=== PATIENT | female | born 1945 | race African-American/Black ===

== ENCOUNTER 2017-08-28 14:13 | Outpatient (CLI) | payer MEDICARE | END 2017-08-28 14:14 | disposition home or self-care (01) | LOC: BICMAMMO 14:13 | PROVIDERS: ATTEND Radiology Diagnostic Radiology | DX: Z12.31 Encounter for screening mammogram for malignant neoplasm of breast (principal) | CPT/HCPCS: 77063; 77067 ==

== ENCOUNTER 2019-03-17 23:31 | Inpatient (IN) | payer MEDICARE ==
[2019-03-18] MEDS ORDERED: cefTRIAXone\\ROCEPHIN 1 GM VIAL ONE (00:01)
[2019-03-18] MEDS ORDERED: Enoxaparin Sodium 80 MG/0.8 ML SYRINGE ONE (00:30)
[2019-03-18] MEDS ORDERED: Acetaminophen 650 MG Suppository PR PRN (01:00)
[2019-03-18] MEDS ORDERED: Ondansetron PF 4 MG/2 ML Vial IVP PRN (01:00)
[2019-03-18] MEDS ORDERED: Ondansetron ODT 4 MG TAB PO PRN (01:00)
[2019-03-18 01:36] LABS: CKMB 43.6 ng/mL (0-6.6)
[2019-03-18 03:29] VITALS: BMI 27.6
[2019-03-18] MEDS ORDERED: Dextrose 50% Abboject 50 ML SYRINGE SLOW IVP PRN (03:31)
[2019-03-18] MEDS ORDERED: Dextrose 5% in Water 1,000 ML IV PRN (03:31)
[2019-03-18 03:42] LABS: #Basophils 0.1 thou/uL (0.0-0.2); #Eosinphils 0.1 thou/uL (0.0-0.7); #Lymphocytes 3.5 thou/uL (1.20-3.40); #Monocytes 1.3 thou/uL (0.11-0.59); #Neutrophils 10.6 thou/uL (1.40-6.50); %Basophils 0.5 % (0.0-1.0); %Eosinophils 0.3 % (0.0-10.0); %Lymphocytes 22.7 % (21.0-51.0); %Monocytes 8.4 % (0.0-10.0); Mean Corpuscular Hemoglobin 28.8 pg (27.0-31.0); Mean Corpuscular Volume 84.9 fL (78.0-98.0); Mean Platelet Volume 8.5 fL (7.4-10.4); Platelet Count 272 thou/uL (130-400); RBC Distribution Width 14.7 % (11.5-14.5); Red Blood Cell (RBC) Count 4.51 mill/uL (4.20-5.40); White Blood Cell (WBC) Count 15.5 thou/uL (4.8-10.8)
[2019-03-18 03:59] LABS: Anion Gap 14 mmol/L (10-20); BUN (Urea Nitrogen) 21 mg/dL (9.8-20.1); Calc. Creatinine Clearance 49 mL/min (70-130); Calcium 9.7 mg/dL (7.8-10.44); Carbon Dioxide 26 mmol/L (23-31); Chloride 103 mmol/L (98-107); Estimated GFR-MDRD 51; Glucose 151 mg/dL (83-110); Potassium 3.3 mmol/L (3.5-5.1); Sodium 140 mmol/L (136-145)
[2019-03-18 04:10] LABS: Troponin I 0.624 ng/mL (< 0.028)
--- NOTE | 2019-03-18 04:48 | HP ---
CODE STATUS: Full code. TIME OF EVALUATION: 12:50 a.m. CHIEF COMPLAINT: The patient was found on the floor. HISTORY OF PRESENT ILLNESS: This is a 74-year-old female with history of dementia, presented to the ER after being found by the daughter being on the floor with no clear triggers, no alleviating factors. The patient cannot give accurate history. The patient has been confused, the patient had no cardiac history. The patient was found to have troponin in the range of 0.4 to 0.5, has been admitted to the hospital for possible non-STEMI. Symptoms are severe. No clear triggers, no alleviating factors. REVIEW OF SYSTEMS: Unable to obtain. The patient has dementia. Information gathered from daughter. PAST MEDICAL HISTORY: History of TIA; diabetes, type 2, non-insulin; and hypertension. PAST SURGICAL HISTORY: Appendectomy, hysterectomy, orthopedic surgery in left shoulder, left arm, right shoulder x2, and carpal tunnel of the left hand. PSYCHIATRIC HISTORY: No previous psych history. SOCIAL HISTORY: No alcohol. No drugs. Former tobacco user. The patient quit smoking more than 10 years ago. KNOWN ALLERGIES: To penicillin. REPORTED MEDICATIONS: 1. Amlodipine. 2. Atorvastatin. 3. Losartan. 4. Aspirin. 5. Hydrochlorothiazide. 6. Levothyroxine. 7. Oxybutynin. 8. Pantoprazole. 9. Humalog. 10. Carvedilol. PHYSICAL EXAMINATION: VITAL SIGNS: On presentation; blood pressure 186/79 with heart rate 78, respiratory rate was 20, temperature 98.5, pain was 0/10, and oxygen saturation was 94% on room air. GENERAL APPEARANCE: The patient is alert, disoriented, has dementia, not in acute distress. HEENT: Eyes, normal conjunctivae. Moist oral mucosa. Anicteric. No JVD. RESPIRATORY: Bilateral air entry. No rales. No wheezes. Symmetric expansion. CARDIOVASCULAR: Normal rate. Regular rhythm. No murmurs. No gallop. No edema. ABDOMEN: Soft. Normal bowel sounds. MUSCULOSKELETAL: Baseline range of motion and strength. SKIN: Warm, intact. No pallor. No rash. No redness. Capillary refill seems to be intact. NEURO: No evidence of any new focal weakness. Cranial nerves seem to be intact. PSYCH: The patient is in good mood. No anxiety. Optimal judgment. DIAGNOSTIC STUDIES: CARDIOVASCULAR STUDIES: EKG was reviewed. The patient has normal sinus rhythm with a rate of 85 with no ectopics, septal infarct, ST and T-wave abnormalities. QT corrected 435. IMAGING STUDIES: CT maxillofacial without contrast was negative. No acute findings. Brain CT shows ventriculomegaly and chronic ischemic white matter changes, appeared stable from the recent study. Acute interval change noted. Chest x-ray, no acute abnormality. Right humeral x-ray; degenerative changes of the shoulder with spurring from the humeral head and the AC joint in the humeral head indicate rotator cuff repair. No fracture or acute abnormality identified. LABORATORY RESULTS: Reviewed. The patient has a white count 17.9, hemoglobin 13.7, MCV 86, and platelet count 307. Coagulation was not done. Chemistry; sodium 141, potassium 4.3, chloride 103, carbon dioxide 22, anion gap 20, BUN 19, creatinine 1.20, previous creatinine was 1.44, GFR 53, and glucose 156. LFTs were negative. Troponin 0.5, the previous one was 0.4. Urine was done and the patient has positive urine with white counts in urine of 7 to 10 and leukocyte esterase. ASSESSMENT AND PLAN: The patient will be placed in the hospital with following medical problems; 1. Non-ST segment elevation myocardial infarction. Unclear if it is non-ST segment elevation myocardial infarction type 1 versus type 2. Cardiology is being consulted. given. Reconcile home medications. We will follow Cardiology recommendations. 2. Urinary tract infection. The patient has received antibiotics and we will continue for now. We will follow up cultures and adjust treatment as needed. 3. Possible sepsis. The patient had white count of 17, respirations of 20, possible source is urinary tract infection. The patient is on antibiotics. Follow up cultures. 4. Diabetes, type 2. Blood sugar 156. Place the patient on sliding scale. Job ID: [id number]
--- NOTE | 2019-03-18 07:42 | CT ---
PRELIMINARY REPORT/[facility]/EMERGENCY AFTER HOURS PROCEDURE: EXAM: CT Maxillofacial Without Contrast EXAM DATE/TIME: 03/18/2019 12:25 AM CLINICAL HISTORY: 74 years old, female; Patient HX: RT sided jaw pain S/P fall TECHNIQUE: Imaging protocol: Computed tomography images of the face without contrast. Coronal and sagittal reformatted images were created and reviewed. COMPARISON: No relevant prior studies available. FINDINGS: Orbits: Orbits are normal. Globes are unremarkable. Sinuses: Normal. No air-fluid levels. Bones/joints: Subtle fracture deformity in the right nasal bone is likely chronic. Remaining facial bones intact. Soft tissues: Unremarkable. IMPRESSION: No acute findings. Thank you for allowing us to participate in the care of your patient. Dictated and Authenticated by: Gary Flores MD 03/18/2019 1:14 AM Central Time ([place] & [place]) FINAL REPORT: CT FACIAL BONES WITHOUT CONTRAST: I agree with the report given by Dr. Gary Flores. Transcribed Date/Time: 03/18/2019 7:47 AM
[2019-03-18] MEDS: Enoxaparin Sodium 40 MG/0.4 ML SYRINGE SC SCH (09:37)
[2019-03-18 10:08] LABS: Troponin I 0.692 ng/mL (< 0.028)
[2019-03-18] MEDS ORDERED: Carvedilol 6.25 MG TAB PO SCH (11:45)
[2019-03-18] MEDS ORDERED: Losartan 25 MG TAB PO SCH (11:45)
[2019-03-18] MEDS ORDERED: Amlodipine 5 MG TAB PO SCH (13:45)
--- NOTE | 2019-03-18 14:16 | PDOC.EVN ---
Event Note - Event Note Event Note: Patient was seen and examined. Will restart home medications. Get CT head to rule out acute CVA. Get left knee XR to rule out fracture given severe pain and decreased ROM.
[2019-03-18] MEDS: Sodium Chloride 0.9% 1,000 ML IV SCH (15:16)
--- NOTE | 2019-03-18 16:40 | RAD ---
LEFT KNEE FOUR VIEWS: 03/18/19 INDICATION: Severe left knee pain with reduced range of motion. COMPARISON: Prior exam dated 11/04/18. There is enthesopathic change off the anterior patella and tibial tuberosity. There are mild marginal osteophyte affecting all major compartments of the left knee. There are vascular calcification withi n the posterior soft tissues. No acute fracture or subluxation is evident. No joint capsular distenti on is noted. IMPRESSION: Mild degenerative arthrosis left knee. No acute osseous abnormality. POS: BH
[2019-03-18] MEDS: HumaLOG 300 UNITS/3 ML VIAL SC PRN (18:43)
--- NOTE | 2019-03-18 20:28 | CON ---
DATE OF CONSULTATION: 03/18/2019 INDICATION FOR CONSULTATION: A 74-year-old female with multiple falls, had slight elevation of cardiac enzymes with troponins elevated, MB was 43.6, however, do not have a CK. It is uncertain as to how long the lady has been on the floor. However, according to the sister, she has 2 to 3 falls per day and she lives by herself. She was admitted after having another fall and was found on the floor by the family and they brought her to the hospital. At this time, she denies any chest pain. Her EKG is unremarkable for any acute changes. There is no indication that she has any significant ST-segment elevation that would indicate a myocardial ischemia. She also denies any chest pain. She says she has not had a cardiac problem in the past. She did undergo an echocardiogram previously transesophageal echocardiogram as well as a transthoracic echocardiogram in 2013, which showed a normal ejection fraction. She does have history of diastolic dysfunction and aortic valve sclerosis with mild mitral and tricuspid valve regurgitation. At this time, it does not appear that she is having any acute episodes, and if the CK is significantly elevated, then I suspect this is just a manifestation of her rhabdomyolysis after lying on the floor and after multiple falls according to the family. At this time, she denies any previous cardiac history, and I do not see anything in the records that would indicate any cardiac history except for the echocardiogram with some diastolic dysfunction. We will repeat the echocardiogram for further evaluation. PAST MEDICAL HISTORY: Significant for TIAs, dementia, [id number] diabetes, hypertension. She has had an appendectomy, hysterectomy, left shoulder surgery, right shoulder surgery, left arm fracture. She has had carpal tunnel release in the left hand. SOCIAL HISTORY: She still apparently lives alone. She smoked in the past, stopped about 10 years ago. She has children who are alive and well. FAMILY HISTORY: Noncontributory. MEDICATIONS: Prior to admission include aspirin, Lipitor, Norvasc, vitamin D3, insulin, hydrochlorothiazide, Levoxyl, Protonix, Coreg 6.25 mg b.i.d., Cozaar, and Ditropan. ALLERGIES: SHE IS ALLERGIC TO PENICILLIN. REVIEW OF SYSTEMS: She denies any significant complaints in the review of systems except for the falls and she says she has a cataract in the left eye. Otherwise, she has no significant complaints, but she did complain at this time that she has left ankle pain and on examination done for her to palpate pulses, she did complain of significant pain when I try to evaluate the pulses in the feet, but only on the left side. PHYSICAL EXAMINATION: GENERAL: An elderly lady who is somewhat demented. VITAL SIGNS: Blood pressure is 184/78 and earlier was 167/92, heart rate is 76 and shows a sinus rhythm, temperature is 99, respiratory rate is 18. HEENT: Head to be normocephalic and atraumatic. Carotid pulses are present. I did not hear any bruits. There is no JVD noted. The thyroid did not appear to be enlarged. CHEST: Clear to auscultation without rales, rhonchi, or wheezing. CARDIOVASCULAR: Regular rate and rhythm. Normal S1 and S2. There was no S3 or S4. There were no significant murmurs, heaves, thrills, bruits, or rubs. ABDOMEN: Obesity with positive bowel sounds. No organomegaly or masses noted. No tenderness was noted. EXTREMITIES: No clubbing, cyanosis, or edema. Pedal pulses are decreased but are present. She does have tenderness of the left ankle area. NEUROLOGIC: She is somewhat slow to respond. She is somewhat confused. She did not know which year it was. She did know what month it was, and she was uncertain of the date also, but otherwise knew that it was Thursday. Otherwise, there were no significant complaints on the review of systems. SKIN: Warm and dry. DIAGNOSTIC DATA: EKG shows a normal sinus rhythm with no acute changes to indicate ischemia or previous myocardial. LABORATORY DATA: Troponin I of 0.059, increased up to 0.624 and is now up to 0.692. MB was 43.6. I do not have a CK and will request the CK. If the CK is significantly elevated, then I would suspect also the MBs. The troponin I would also be elevated. She denies any chest pain at this time and appears to be very stable. Her thyroid functions shows a TSH of 6.7. IMPRESSION: 1. An elderly female with probable rhabdomyolysis, who was found on the floor with elevated cardiac enzymes, which may not be out of proportion to the CK. Once we determined how healthy the CK is, this may give us further inside. If the CK is normal and MB elevated to 43.6, this will indicate a [id number] elevation myocardial infarction. Since she has no EKG changes and is stable at this time, we will continue medical treatment due to her other medical problems. 2. History of multiple falls and dementia. The patient lives alone. She should either be consider going to a residential or have family members reside with her. 3. According to the records, urinary tract infection is being dealt with by the Primary Care Service. 4. Diabetes. Blood sugar is anywhere between 136 to 151. At this time, we will plan for a repeat echocardiogram for evaluation of left ventricular systolic function. We can continue to monitor the cardiac enzymes. We will obtain the CK to determine whether or not most this may be due to significant elevation of musculoskeletal CK elevation. She has had a normal ejection fraction in the past and has some history of diastolic dysfunction. We will be happy to continue the patient to follow the patient with you. We will treat her medically at this time. She is already on aspirin as well as ARB, statins, and beta phillip. Heart rate shows a regular rhythm at 76 beats per minute. We will continue these medications. We will continue to follow the patient. Job ID: [id number]
[2019-03-18] MEDS ORDERED: Atorvastatin Calcium 40 MG TAB PO SCH (21:00)
[2019-03-18] MEDS: Oxybutynin 5 MG TAB PO SCH (21:14)
[2019-03-18] MEDS: Carvedilol 6.25 MG TAB PO SCH (21:14)
[2019-03-18] MEDS: Acetaminophen 325 MG TAB PO PRN (21:16)
[2019-03-19] MEDS: Sodium Chloride 0.9% 1,000 ML IV SCH ×3 (01:34→20:40)
[2019-03-19] MEDS: cefTRIAXone\\ROCEPHIN 1 GM in Sodium Chloride 0.9% 100 ML IVPB SCH (03:43)
[2019-03-19 04:56] LABS: Anion Gap 11 mmol/L (10-20); BUN (Urea Nitrogen) 23 mg/dL (9.8-20.1); CK (CPK) 1516 U/L (29-168); Calc. Creatinine Clearance 52 mL/min (70-130); Calcium 8.4 mg/dL (7.8-10.44); Carbon Dioxide 24 mmol/L (23-31); Chloride 108 mmol/L (98-107); Estimated GFR-MDRD 53; Glucose 208 mg/dL (83-110); Potassium 3.6 mmol/L (3.5-5.1); Sodium 139 mmol/L (136-145)
[2019-03-19] MEDS ORDERED: Amlodipine 5 MG TAB PO SCH ×2 (09:00→14:00)
[2019-03-19] MEDS: Enoxaparin Sodium 40 MG/0.4 ML SYRINGE SC SCH (09:23)
[2019-03-19] MEDS: Losartan 25 MG TAB PO SCH (09:24)
[2019-03-19] MEDS: Oxybutynin 5 MG TAB PO SCH ×2 (09:24→20:46)
[2019-03-19] MEDS: Aspirin 325 mg Enteric Coated Tablet PO SCH (09:25)
[2019-03-19] MEDS: Levothyroxine Sodium 50 MCG TAB PO SCH (09:25)
[2019-03-19] MEDS: Carvedilol 6.25 MG TAB PO SCH ×2 (09:26→20:45)
[2019-03-19] MEDS ORDERED: Zolpidem Tartrate 5 MG TAB PO PRN (09:28)
[2019-03-19] MEDS ORDERED: Artificial Tears 18 DROP/0.9 ML EA EYE PRN (09:28)
[2019-03-19] MEDS ORDERED: Loratadine 10 MG TAB PO PRN (09:28)
[2019-03-19] MEDS ORDERED: Diabetic Tussin 200 MG/10 ML UDCUP PO PRN (09:28)
[2019-03-19] MEDS ORDERED: Bisacodyl 10 MG SUPP PR PRN (09:28)
[2019-03-19] MEDS ORDERED: Nitroglycerin 0.4 MG TAB (25 Tab Bottle) SL PRN (09:28)
[2019-03-19] MEDS ORDERED: Loperamide HCl 2 MG CAP PO PRN (09:28)
[2019-03-19] MEDS ORDERED: hydrALAZINE 20 MG/ML VIAL SLOW IVP PRN (09:28)
[2019-03-19] MEDS ORDERED: Senokot S 8.6-50 MG TAB PO PRN (09:28)
[2019-03-19] MEDS ORDERED: Sodium Chloride 0.65% Nasal 44 ML BOT EA NARE PRN (09:28)
[2019-03-19] MEDS ORDERED: Cepastat Lozenges 1 LOZ PO PRN (09:28)
--- NOTE | 2019-03-19 12:17 | PDOC.HOSPP ---
- Subjective Subjective: Patient seen and examined. No new complaints. No overnight events - Objective Vital Signs & Weight: Vital Signs (12 hours) Temp Pulse Resp BP BP Pulse Ox 03/19/19 11:42 98.3 F 78 16 175/77 H 97 03/19/19 09:24 63 186/81 H 03/19/19 07:42 98.2 F 69 16 175/76 H 96 03/19/19 04:00 98.2 F 65 20 148/67 H 97 Weight Weight 172 lb 12.8 oz I&O: 03/18/19 03/19/19 03/20/19 06:59 06:59 06:59 Intake Total 500 Output Total 700 Balance -200 Result Diagrams: 03/18/19 03:20 03/19/19 04:18 Additional Labs: Accuchecks 03/19/19 03/19/19 03/18/19 11:18 05:47 21:31 POC Glucose 289 H 164 H 239 H 03/18/19 03/18/19 18:39 17:00 POC Glucose 248 H 220 H EKG Reviewed by me: Yes ROS - Review of Systems All systems: All other ROS were reviewed and found negative. Constitutional: reports: weakness. denies: fever, chills, sweats, malaise, other ENT: denies: ear pain, ear discharge, nose pain, nose discharge, nose congestion , mouth pain, mouth swelling, throat pain, throat swelling, other Respiratory: denies: cough, dry, shortness of breath, hemoptysis, SOB with excertion, pleuritic pain, sputum, wheezing, other Cardiovascular: denies: chest pain, palpitations, orthopnea, paroxysmal noc. dyspnea, edema, light headedness, other Gastrointestinal: denies: nausea, vomitting, abdominal pain, diarrhea, constipation, melena, hematochezia, other Genitourinary: denies: dysuria, frequency, incontinence, hematuria, retention, other Musculoskeletal: reports: leg pain. denies: neck pain, shoulder pain, arm pain , back pain, hand pain, foot pain, other Skin: denies: rash, lesions, cindy, bruising, other Neurological: denies: weakness, numbness, incoordination, change in speech, confusion, seizures, other - Medication Medications: Active Medications Generic Name Dose Route Start Last Admin Trade Name Freq PRN Reason Stop Dose Admin Acetaminophen 650 mg 03/18/19 01:00 03/18/19 21:16 Tylenol PO 650 mg Q4H PRN Administration Headache/Fever/Mild Pain (1-3) Aspirin 325 mg 03/19/19 09:00 03/19/19 09:25 Ecotrin PO 325 mg DAILY GENESIS Administration Carvedilol 6.25 mg 03/18/19 21:00 03/19/19 09:26 Coreg PO 6.25 mg BID GENESIS Administration Enoxaparin Sodium 40 mg 03/18/19 09:00 03/19/19 09:23 Lovenox SC 40 mg 0900 GENESIS Administration Sodium Chloride 1,000 mls @ 100 mls/hr 03/18/19 14:30 03/19/19 01:34 Normal Saline 0.9% IV 1,000 mls .Q10H GENESIS Administration Ceftriaxone Sodium 1 gm/ 100 mls @ 200 mls/hr 03/20/19 01:00 03/19/19 03:43 Sodium Chloride IVPB 100 mls Q24HR GENESIS Administration Insulin Human Lispro 0 units 03/18/19 03:31 03/18/19 18:43 Humalog SC 3 unit .MILD SLIDING SCALE PRN Administration Mild Correctional Scale Levothyroxine Sodium 50 mcg 03/19/19 09:00 03/19/19 09:25 Synthroid PO 50 mcg DAILY GENESIS Administration Losartan Potassium 100 mg 03/19/19 09:00 03/19/19 09:24 Cozaar PO 100 mg DAILY GENESIS Administration Oxybutynin Chloride 5 mg 03/18/19 21:00 03/19/19 09:24 Ditropan PO 5 mg BID GEENSIS Administration Pantoprazole Sodium 40 mg 03/19/19 09:00 03/19/19 09:24 Protonix PO 40 mg DAILY GENESIS Administration - Exam NAD, awake alert Eye: PERRL, anicteric sclera ENT: normocephalic atraumatic, no oropharyngeal lesions Neck: supple, symmetric, no JVD Heart: RRR, no murmur, no gallops, no rubs Respiratory: CTAB, no wheezes, no rales, no ronchi Gastrointestinal: soft, non-tender, non-distended, normal bowel sounds Extremities: no cyanosis, no clubbing, no edema Skin: normal turgor, no lesions Neurological: CN's grossly intact, normal sensation to touch, no focal deficits Musculoskeletal: normal tone, normal strength Psychiatric: normal affect, normal behavior Hosp A/P (1) Acute metabolic encephalopathy Code(s): G93.41 - METABOLIC ENCEPHALOPATHY Status: Resolved (2) Hypokalemia Code(s): E87.6 - HYPOKALEMIA Status: Resolved (3) Rhabdomyolysis Code(s): M62.82 - RHABDOMYOLYSIS Status: Acute Plan: improving (4) Type [address] elevation Code(s): I21.A1 - MYOCARDIAL INFARCTION TYPE 2 Status: Acute Plan: due to demand ischemia (5) UTI (urinary tract infection) Status: Acute Plan: on rocephin (6) Atherosclerosis of aorta Code(s): I70.0 - ATHEROSCLEROSIS OF AORTA Status: Chronic (7) CKD (chronic kidney disease) stage 3, GFR 30-59 ml/min Code(s): N18.3 - CHRONIC KIDNEY DISEASE, STAGE 3 (MODERATE) Status: Chronic (8) Diabetes type 2, controlled Code(s): E11.9 - TYPE 2 DIABETES MELLITUS WITHOUT COMPLICATIONS Status: Chronic (9) GERD (gastroesophageal reflux disease) Code(s): K21.9 - GASTRO-ESOPHAGEAL REFLUX DISEASE WITHOUT ESOPHAGITIS Status: Chronic (10) HLD (hyperlipidemia) Code(s): E78.5 - HYPERLIPIDEMIA, UNSPECIFIED Status: Chronic (11) HTN (hypertension) Code(s): I10 - ESSENTIAL (PRIMARY) HYPERTENSION Status: Chronic (12) Hypothyroidism Code(s): E03.9 - HYPOTHYROIDISM, UNSPECIFIED Status: Chronic - Plan old records reviewed/req, continue antibiotics, PT/OT, school social worker continue IVF repeat labs tomorrow Dc lipitor due to high CK continue PT/OT cardiology following continue rocephin home medication reconciled medication reviewed as below symptomatic treatment will need placement increase amlodipine
[2019-03-19] MEDS: HumaLOG 300 UNITS/3 ML VIAL SC PRN ×3 (12:55→22:12)
--- NOTE | 2019-03-19 14:21 | PDOC.CTH ---
Cardiology Progress Note - Subjective The pt seen and examined. No overnight events. No cardiac complaints. - Objective Vital Signs Temp Pulse Pulse Pulse Resp BP BP 03/19/19 13:40 75 184/75 H 03/19/19 11:42 98.3 F 78 16 03/19/19 11:35 77 69 175/77 H 03/19/19 09:24 63 186/81 H 03/19/19 07:42 98.2 F 69 16 03/19/19 04:00 98.2 F 65 20 BP BP Pulse Ox 03/19/19 13:40 03/19/19 11:42 175/77 H 97 03/19/19 11:35 190/77 H 03/19/19 09:24 03/19/19 07:42 175/76 H 96 03/19/19 04:00 148/67 H 97 Weight 172 lb 12.8 oz 03/18/19 03/19/19 03/20/19 06:59 06:59 06:59 Intake Total 500 Output Total 700 Balance -200 - Physical Examination General/Neuro: other: (A&O to self) Lungs: other: (diminished at bases) Heart: RRR Abdomen: soft Extremities: other: (No edema) - Telemetry Telemetry Rhythm: SR - Labs Result Diagrams: 03/18/19 03:20 03/19/19 04:18 Troponin/CKMB CK-MB (CK-2) 43.6 ng/mL (0-6.6) H* 03/18/19 00:36 Troponin I 0.692 ng/mL (< 0.028) H* 03/18/19 09:24 - Assessment/Plan 1. Elevated Trop, CK, and CKMB - possible due to rebdomyolysis? ECG has not showed any ST or T wave change; cont to monitor 2. HTN - Will start Hydralazine 25mg BID from tonight; 3. DM type 2 - managed by PCP 4. H of multiple falls, last episode was on 03/18/2019 5. Hx of TIAs 6. Hypothyroidism 7. UTI MAR reviewed * Echo on 03/18/2019 with EF 50-55%, diastolic dysfunction, mild MR, AR, and TR Pt. seen and eval. by me. I agree with the A/P by the ENVIRONMENTAL HEALTH MANAGER.The pt. is without complaints. The BP is difficult to control. Continue to adjust meds. Chest clear. RRR. [email or web address] Review of Systems - Review of Systems Constitutional: reports: no symptoms reported EENTM: reports: no symptoms reported Respiratory: reports: no symptoms reported Cardiac (ROS): reports: no symptoms reported ABD/GI: reports: no symptoms reported : reports: no symptoms reported Musculoskeletal: reports: no symptoms reported
[2019-03-19] MEDS: Acetaminophen 325 MG TAB PO PRN (14:36)
[2019-03-19] MEDS: cloNIDine 0.1 MG TAB PO PRN (16:56)
[2019-03-19] MEDS: hydrALAZINE 25 MG TAB PO SCH (20:45)
[2019-03-19] MEDS: Atorvastatin Calcium 40 MG TAB PO SCH (20:46)
[2019-03-19] MEDS ORDERED: Clopidogrel Bisulfate 75 MG TAB ONE (23:27)
[2019-03-20] MEDS: cefTRIAXone\\ROCEPHIN 1 GM in Sodium Chloride 0.9% 100 ML IVPB SCH (00:53)
[2019-03-20] MEDS: Sodium Chloride 0.9% 1,000 ML IV SCH ×2 (00:54→17:03)
[2019-03-20] MEDS ORDERED: cefTRIAXone\\ROCEPHIN 1 GM in Sodium Chloride 0.9% 100 ML IVPB SCH (01:00)
[2019-03-20 06:49] LABS: #Basophils 0.1 thou/uL (0.0-0.2); #Eosinphils 0.1 thou/uL (0.0-0.7); #Lymphocytes 2.4 thou/uL (1.20-3.40); #Monocytes 0.9 thou/uL (0.11-0.59); #Neutrophils 5.9 thou/uL (1.40-6.50); %Basophils 0.6 % (0.0-1.0); %Eosinophils 1.3 % (0.0-10.0); %Lymphocytes 25.4 % (21.0-51.0); %Monocytes 9.7 % (0.0-10.0); Mean Corpuscular HGB CONC 32.7 g/dL (32.0-36.0); Mean Corpuscular Hemoglobin 28.3 pg (27.0-31.0); Mean Corpuscular Volume 86.6 fL (78.0-98.0); Mean Platelet Volume 8.5 fL (7.4-10.4); Platelet Count 204 thou/uL (130-400); RBC Distribution Width 14.6 % (11.5-14.5); Red Blood Cell (RBC) Count 3.88 mill/uL (4.20-5.40); White Blood Cell (WBC) Count 9.3 thou/uL (4.8-10.8)
[2019-03-20 07:12] LABS: ALT (SGPT) 29 U/L (8-55); AST (SGOT) 46 U/L (5-34); Alkaline Phosphatase 88 U/L (40-150); Anion Gap 10 mmol/L (10-20); BUN (Urea Nitrogen) 14 mg/dL (9.8-20.1); Bilirubin, Total 0.4 mg/dL (0.2-1.2); CK (CPK) 899 U/L (29-168); Calc. Creatinine Clearance 54 mL/min (70-130); Calcium 8.3 mg/dL (7.8-10.44); Carbon Dioxide 24 mmol/L (23-31); Chloride 109 mmol/L (98-107); Estimated GFR-MDRD 54; Globulin 2.9 g/dL (2.4-3.5); Glucose 259 mg/dL (83-110); Potassium 3.9 mmol/L (3.5-5.1); Protein, Total 5.9 g/dL (6.0-8.3); Sodium 139 mmol/L (136-145)
[2019-03-20 07:26] LABS: Troponin I 0.782 ng/mL (< 0.028)
[2019-03-20] MEDS: Enoxaparin Sodium 40 MG/0.4 ML SYRINGE SC SCH (07:53)
[2019-03-20] MEDS: Losartan 25 MG TAB PO SCH (07:54)
[2019-03-20] MEDS: Oxybutynin 5 MG TAB PO SCH ×2 (07:55→20:16)
[2019-03-20] MEDS: Amlodipine 5 MG TAB PO SCH (07:55)
[2019-03-20] MEDS: Aspirin 325 mg Enteric Coated Tablet PO SCH (07:56)
[2019-03-20] MEDS: Carvedilol 6.25 MG TAB PO SCH ×2 (07:56→20:19)
[2019-03-20] MEDS: hydrALAZINE 25 MG TAB PO SCH ×2 (07:56→20:36)
[2019-03-20] MEDS: Levothyroxine Sodium 50 MCG TAB PO SCH (09:15)
--- NOTE | 2019-03-20 10:25 | PDOC.HOSPP ---
- Subjective Subjective: Patient seen and examined. No new complaints. No overnight events - Objective Vital Signs & Weight: Vital Signs (12 hours) Temp Pulse Resp BP Pulse Ox 03/20/19 07:28 98.7 F 64 20 191/76 H 95 03/20/19 04:00 97.9 F 66 18 170/70 H 96 03/19/19 23:35 98.3 F 20 158/70 H 98 Weight Weight 178 lb I&O: 03/19/19 03/20/19 03/21/19 06:59 06:59 06:59 Intake Total 500 2620 Output Total 700 2850 Balance -200 -230 Result Diagrams: 03/20/19 06:33 03/20/19 06:33 Additional Labs: Accuchecks 03/20/19 03/19/19 03/19/19 05:48 20:42 16:27 POC Glucose 229 H 276 H 231 H 03/19/19 11:18 POC Glucose 289 H EKG Reviewed by me: Yes ROS - Review of Systems All systems: All other ROS were reviewed and found negative. Constitutional: reports: weakness. denies: fever, chills, sweats, malaise, other Eyes: denies: pain, vision change, conjunctivae inflammation, eyelid inflammation, redness, other ENT: denies: ear pain, ear discharge, nose pain, nose discharge, nose congestion , mouth pain, mouth swelling, throat pain, throat swelling, other Respiratory: denies: cough, dry, shortness of breath, hemoptysis, SOB with excertion, pleuritic pain, sputum, wheezing, other Cardiovascular: denies: chest pain, palpitations, orthopnea, paroxysmal noc. dyspnea, edema, light headedness, other Gastrointestinal: denies: nausea, vomitting, abdominal pain, diarrhea, constipation, melena, hematochezia, other Genitourinary: denies: dysuria, frequency, incontinence, hematuria, retention, other Musculoskeletal: denies: neck pain, shoulder pain, arm pain, back pain, hand pain, leg pain, foot pain, other Skin: denies: rash, lesions, cindy, bruising, other - Medication Medications: Active Medications Generic Name Dose Route Start Last Admin Trade Name Freq PRN Reason Stop Dose Admin Acetaminophen 650 mg 03/18/19 01:00 03/19/19 14:36 Tylenol PO 650 mg Q4H PRN Administration Headache/Fever/Mild Pain (1-3) Amlodipine Besylate 10 mg 03/19/19 09:30 03/20/19 07:55 Norvasc PO 10 mg DAILY GENESIS Administration Aspirin 325 mg 03/19/19 09:00 03/20/19 07:56 Ecotrin PO 325 mg DAILY GENESIS Administration Atorvastatin Calcium 40 mg 03/19/19 21:00 03/19/19 20:46 Lipitor PO 40 mg HS GENESIS Administration Carvedilol 6.25 mg 03/18/19 21:00 03/20/19 07:56 Coreg PO 6.25 mg BID GENESIS Administration Cholecalciferol 1,000 units 03/20/19 09:00 03/20/19 07:56 Vitamin D3 PO 1,000 units DAILY GENESIS Administration Clonidine 0.1 mg 03/19/19 16:35 03/19/19 16:56 Catapres PO 0.1 mg Q6HR PRN Administration Hypertension Enoxaparin Sodium 40 mg 03/18/19 09:00 03/20/19 07:53 Lovenox SC 40 mg 0900 GENESIS Administration Hydralazine HCl 10 mg 03/19/19 09:28 03/19/19 13:40 Apresoline SLOW IVP 10 mg Q4H PRN Administration SBP > 180 and HR < 70 Hydralazine HCl 25 mg 03/19/19 21:00 03/20/19 07:56 Apresoline PO 25 mg BID GENESIS Administration Sodium Chloride 1,000 mls @ 100 mls/hr 03/18/19 14:30 03/20/19 00:54 Normal Saline 0.9% IV 1,000 mls .Q10H GENESIS Administration Ceftriaxone Sodium 1 gm/ 100 mls @ 200 mls/hr 03/20/19 01:00 03/20/19 00:53 Sodium Chloride IVPB 100 mls Q24HR GENESIS Administration Insulin Human Lispro 0 units 03/18/19 03:31 03/19/19 18:06 Humalog SC 3 unit .MILD SLIDING SCALE PRN Administration Mild Correctional Scale Insulin Human Lispro 0 units 03/19/19 21:15 03/19/19 22:12 Humalog SC 3 unit .BEDTIME SLIDING SC PRN Administration Bedtime Correctional Scale Levothyroxine Sodium 50 mcg 03/19/19 09:00 03/20/19 09:15 Synthroid PO 50 mcg DAILY GENESIS Administration Losartan Potassium 100 mg 03/19/19 09:00 03/20/19 07:54 Cozaar PO 100 mg DAILY GENESIS Administration Oxybutynin Chloride 5 mg 03/18/19 21:00 03/20/19 07:55 Ditropan PO 5 mg BID GENESIS Administration Pantoprazole Sodium 40 mg 03/19/19 09:00 03/20/19 07:56 Protonix PO 40 mg DAILY GENESIS Administration - Exam NAD, awake alert Eye: PERRL, anicteric sclera ENT: normocephalic atraumatic, no oropharyngeal lesions Neck: supple, symmetric, no JVD Heart: RRR, no murmur, no gallops, no rubs Respiratory: CTAB, no wheezes, no rales, no ronchi Gastrointestinal: soft, non-tender, non-distended, normal bowel sounds Extremities: no cyanosis, no clubbing, no edema Skin: normal turgor, no lesions, no rashes Neurological: CN's grossly intact, normal sensation to touch, no focal deficits Musculoskeletal: normal tone, normal strength Psychiatric: normal affect, normal behavior Hosp A/P (1) Acute metabolic encephalopathy Code(s): G93.41 - METABOLIC ENCEPHALOPATHY Status: Resolved (2) Hypokalemia Code(s): E87.6 - HYPOKALEMIA Status: Resolved (3) Rhabdomyolysis Code(s): M62.82 - RHABDOMYOLYSIS Status: Acute (4) Type [address] elevation Code(s): I21.A1 - MYOCARDIAL INFARCTION TYPE 2 Status: Acute (5) UTI (urinary tract infection) Status: Acute (6) Atherosclerosis of aorta Code(s): I70.0 - ATHEROSCLEROSIS OF AORTA Status: Chronic (7) CKD (chronic kidney disease) stage 3, GFR 30-59 ml/min Code(s): N18.3 - CHRONIC KIDNEY DISEASE, STAGE 3 (MODERATE) Status: Chronic (8) Diabetes type 2, controlled Code(s): E11.9 - TYPE 2 DIABETES MELLITUS WITHOUT COMPLICATIONS Status: Chronic (9) GERD (gastroesophageal reflux disease) Code(s): K21.9 - GASTRO-ESOPHAGEAL REFLUX DISEASE WITHOUT ESOPHAGITIS Status: Chronic (10) HLD (hyperlipidemia) Code(s): E78.5 - HYPERLIPIDEMIA, UNSPECIFIED Status: Chronic (11) HTN (hypertension) Code(s): I10 - ESSENTIAL (PRIMARY) HYPERTENSION Status: Chronic (12) Hypothyroidism Code(s): E03.9 - HYPOTHYROIDISM, UNSPECIFIED Status: Chronic - Plan old records reviewed/req, plan discussed w/ family, continue antibiotics, PT/OT , medical social consultant cardiology following continue IVF add diflucan for yeast in urine culture medication reviewed as below symptomatic treatment will dc rocephin tomorrow repeat labs tomorrow CK improving
[2019-03-20] MEDS ORDERED: Fluconazole 100 MG TAB PO SCH (10:30)
[2019-03-20] MEDS: HumaLOG 300 UNITS/3 ML VIAL SC PRN ×3 (13:09→20:36)
--- NOTE | 2019-03-20 13:19 | PDOC.CTH ---
Cardiology Progress Note - Subjective The pt seen and examined. No overnight events. No cardiac complaints. - Objective Vital Signs Temp Pulse Resp BP Pulse Ox 03/20/19 11:21 97.7 F 73 18 170/73 H 96 03/20/19 07:28 98.7 F 64 20 191/76 H 95 03/20/19 04:00 97.9 F 66 18 170/70 H 96 Weight 178 lb 03/19/19 03/20/19 03/21/19 06:59 06:59 06:59 Intake Total 500 2620 Output Total 700 2850 Balance -200 -230 - Physical Examination General/Neuro: alert & oriented x3 Neck: no JVD present Lungs: other: (diminished at bases) Heart: RRR Abdomen: soft Extremities: other: (No edema) - Telemetry Telemetry Rhythm: SR - Labs Result Diagrams: 03/20/19 06:33 03/20/19 06:33 Troponin/CKMB CK-MB (CK-2) 43.6 ng/mL (0-6.6) H* 03/18/19 00:36 Troponin I 0.782 ng/mL (< 0.028) H* 03/20/19 06:33 - Assessment/Plan 1. Elevated Trop, CK, and CKMB - possible due to rebdomyolysis? ECG has not showed any ST or T wave change; cont to monitor 2. HTN - Will increase Hydralazine from 25mg BID to 50mg TID from today; 3. DM type 2 - managed by PCP 4. H of multiple falls, last episode was on 03/18/2019 5. Hx of TIAs 6. Hypothyroidism with elevated TSH on 03/18/2019 7. UTI - managed by PCP MAR reviewed * Echo on 03/18/2019 with EF 50-55%, diastolic dysfunction, mild MR, AR, and TR <addendum> For HTN, Clonidine 0.1mg BID and increased Hydralazine from 50mg to 75mg TID. Cont. to monitor Pt. seen and eval. by me. I agree with the A/P by the INSPECT[employer] AD[employer]. Difficult to control BP. Chest clear. RRR.She may need a renal consult to assist with BP management.gjm Review of Systems - Review of Systems Constitutional: reports: no symptoms reported EENTM: reports: no symptoms reported Respiratory: reports: no symptoms reported Cardiac (ROS): reports: no symptoms reported ABD/GI: reports: no symptoms reported : reports: no symptoms reported Musculoskeletal: reports: no symptoms reported
[2019-03-20] MEDS ORDERED: hydrALAZINE 25 MG TAB PO SCH (15:00)
[2019-03-20] MEDS: cloNIDine 0.1 MG TAB PO PRN (17:02)
[2019-03-20] MEDS: Acetaminophen 325 MG TAB PO PRN (17:03)
[2019-03-20] MEDS: Atorvastatin Calcium 40 MG TAB PO SCH (20:16)
[2019-03-20] MEDS: cloNIDine 0.1 MG TAB PO SCH (20:16)
[2019-03-21] MEDS: cefTRIAXone\\ROCEPHIN 1 GM in Sodium Chloride 0.9% 100 ML IVPB SCH (00:40)
[2019-03-21] MEDS: Sodium Chloride 0.9% 1,000 ML IV SCH (02:15)
[2019-03-21] MEDS: Fluconazole 100 MG TAB PO SCH (09:40)
[2019-03-21] MEDS: Losartan 25 MG TAB PO SCH (09:40)
[2019-03-21] MEDS: cloNIDine 0.1 MG TAB PO SCH ×2 (09:40→21:57)
[2019-03-21] MEDS: Amlodipine 5 MG TAB PO SCH (09:41)
[2019-03-21] MEDS: Carvedilol 6.25 MG TAB PO SCH ×2 (09:41→21:58)
[2019-03-21] MEDS: hydrALAZINE 25 MG TAB PO SCH ×3 (09:42→21:58)
[2019-03-21] MEDS: Enoxaparin Sodium 40 MG/0.4 ML SYRINGE SC SCH (09:42)
[2019-03-21] MEDS: Oxybutynin 5 MG TAB PO SCH ×2 (09:42→21:59)
[2019-03-21] MEDS: Aspirin 325 mg Enteric Coated Tablet PO SCH (09:42)
[2019-03-21] MEDS: Levothyroxine Sodium 50 MCG TAB PO SCH (09:47)
[2019-03-21] MEDS: HumaLOG 300 UNITS/3 ML VIAL SC PRN ×2 (09:48→19:00)
--- NOTE | 2019-03-21 10:58 | PDOC.CTH ---
Cardiology Progress Note - Subjective The pt seen and examined. No overnight events. No cardiac complaints. - Objective Vital Signs Temp Pulse Resp BP BP Pulse Ox 03/21/19 09:42 67 03/21/19 09:41 66 154/66 H 03/21/19 09:40 154/66 H 03/21/19 04:00 99.2 F 67 20 151/68 H 96 03/21/19 00:00 98.5 F 69 20 145/67 H 95 Weight 180 lb 03/20/19 03/21/19 03/22/19 06:59 06:59 06:59 Intake Total 2620 3140 Output Total 2850 2250 Balance -230 890 - Physical Examination General/Neuro: alert & oriented x3 Neck: no JVD present Lungs: other: (diminished at bases) Heart: RRR Abdomen: soft Extremities: other: (No edema) - Telemetry Telemetry Rhythm: SR - Labs Result Diagrams: 03/20/19 06:33 03/20/19 06:33 Troponin/CKMB CK-MB (CK-2) 43.6 ng/mL (0-6.6) H* 03/18/19 00:36 Troponin I 0.782 ng/mL (< 0.028) H* 03/20/19 06:33 - Assessment/Plan 1. Elevated Trop, CK, and CKMB - possible due to rebdomyolysis. ECG has not showed any ST or T wave change; cont to monitor 2. HTN - Will increase Hydralazine from 75mg to 100mg TID from today; 3. DM type 2 - managed by PCP 4. H of multiple falls, last episode was on 03/18/2019 5. Hx of TIAs 6. Hypothyroidism with elevated TSH on 03/18/2019 7. UTI - managed by PCP MAR reviewed * Echo on 03/18/2019 with EF 50-55%, diastolic dysfunction, mild MR, AR, and TR Review of Systems - Review of Systems Constitutional: reports: no symptoms reported EENTM: reports: no symptoms reported Respiratory: reports: no symptoms reported Cardiac (ROS): reports: no symptoms reported ABD/GI: reports: no symptoms reported : reports: no symptoms reported Musculoskeletal: reports: no symptoms reported
--- NOTE | 2019-03-21 11:05 | PDOC.HOSPP ---
- Subjective Subjective: Patient seen and examined. No new complaints. No overnight events - Objective Vital Signs & Weight: Vital Signs (12 hours) Temp Pulse Resp BP BP Pulse Ox 03/21/19 09:42 67 03/21/19 09:41 66 154/66 H 03/21/19 09:40 154/66 H 03/21/19 08:00 98.7 F 70 18 154/66 H 92 L 03/21/19 04:00 99.2 F 67 20 151/68 H 96 03/21/19 00:00 98.5 F 69 20 145/67 H 95 Weight Weight 180 lb I&O: 03/20/19 03/21/19 03/22/19 06:59 06:59 06:59 Intake Total 2620 3140 237 Output Total 2850 2250 Balance -230 890 237 Result Diagrams: 03/20/19 06:33 03/20/19 06:33 Additional Labs: Accuchecks 03/21/19 03/21/19 03/21/19 10:28 09:41 05:30 POC Glucose 297 H 270 H 242 H 03/20/19 03/20/19 03/20/19 20:32 16:25 10:55 POC Glucose 261 H 273 H 286 H EKG Reviewed by me: Yes ROS - Review of Systems All systems: All other ROS were reviewed and found negative. Constitutional: denies: fever, chills, sweats, weakness, malaise, other Eyes: denies: pain, vision change, conjunctivae inflammation, eyelid inflammation, redness, other ENT: denies: ear pain, ear discharge, nose pain, nose discharge, nose congestion , mouth pain, mouth swelling, throat pain, throat swelling, other Respiratory: denies: cough, dry, shortness of breath, hemoptysis, SOB with excertion, pleuritic pain, sputum, wheezing, other Cardiovascular: denies: chest pain, palpitations, orthopnea, paroxysmal noc. dyspnea, edema, light headedness, other Gastrointestinal: denies: nausea, vomitting, abdominal pain, diarrhea, constipation, melena, hematochezia, other Genitourinary: denies: dysuria, frequency, incontinence, hematuria, retention, other Musculoskeletal: denies: neck pain, shoulder pain, arm pain, back pain, hand pain, leg pain, foot pain, other - Medication Medications: Active Medications Generic Name Dose Route Start Last Admin Trade Name Bashir PRN Reason Stop Dose Admin Acetaminophen 650 mg 03/18/19 01:00 03/20/19 17:03 Tylenol PO 650 mg Q4H PRN Administration Headache/Fever/Mild Pain (1-3) Amlodipine Besylate 10 mg 03/19/19 09:30 03/21/19 09:41 Norvasc PO 10 mg DAILY GENESIS Administration Aspirin 325 mg 03/19/19 09:00 03/21/19 09:42 Ecotrin PO 325 mg DAILY GENESIS Administration Atorvastatin Calcium 40 mg 03/19/19 21:00 03/20/19 20:16 Lipitor PO 40 mg HS GENESIS Administration Carvedilol 6.25 mg 03/18/19 21:00 03/21/19 09:41 Coreg PO 6.25 mg BID GENESIS Administration Cholecalciferol 1,000 units 03/20/19 09:00 03/21/19 09:41 Vitamin D3 PO 1,000 units DAILY GENESIS Administration Clonidine 0.1 mg 03/19/19 16:35 03/20/19 17:02 Catapres PO 0.1 mg Q6HR PRN Administration Hypertension Clonidine 0.1 mg 03/20/19 21:00 03/21/19 09:40 Catapres PO 0.1 mg BID GENESIS Administration Enoxaparin Sodium 40 mg 03/18/19 09:00 03/21/19 09:42 Lovenox SC 40 mg 0900 GENESIS Administration Fluconazole 100 mg 03/21/19 09:00 03/21/19 09:40 Diflucan PO 100 mg DAILY GENESIS Administration Hydralazine HCl 10 mg 03/19/19 09:28 03/19/19 13:40 Apresoline SLOW IVP 10 mg Q4H PRN Administration SBP > 180 and HR < 70 Insulin Human Lispro 0 units 03/18/19 03:31 03/21/19 09:48 Humalog SC 4 unit .MILD SLIDING SCALE PRN Administration Mild Correctional Scale Insulin Human Lispro 0 units 03/19/19 21:15 03/20/19 20:36 Humalog SC 3 unit .BEDTIME SLIDING SC PRN Administration Bedtime Correctional Scale Levothyroxine Sodium 50 mcg 03/19/19 09:00 03/21/19 09:47 Synthroid PO 50 mcg DAILY GENESIS Administration Losartan Potassium 100 mg 03/19/19 09:00 03/21/19 09:40 Cozaar PO 100 mg DAILY GENESIS Administration Oxybutynin Chloride 5 mg 03/18/19 21:00 03/21/19 09:42 Ditropan PO 5 mg BID GENESIS Administration Pantoprazole Sodium 40 mg 03/19/19 09:00 03/21/19 09:40 Protonix PO 40 mg DAILY GENESIS Administration Sodium Chloride 10 ml 03/20/19 21:00 03/21/19 09:43 Flush - Normal Saline IVF Not Given Q12HR GENESIS Hosp A/P (1) Acute metabolic encephalopathy Code(s): G93.41 - METABOLIC ENCEPHALOPATHY Status: Resolved (2) Hypokalemia Code(s): E87.6 - HYPOKALEMIA Status: Resolved (3) Rhabdomyolysis Code(s): M62.82 - RHABDOMYOLYSIS Status: Acute (4) Type [address] elevation Code(s): I21.A1 - MYOCARDIAL INFARCTION TYPE 2 Status: Acute (5) UTI (urinary tract infection) Status: Acute (6) Atherosclerosis of aorta Code(s): I70.0 - ATHEROSCLEROSIS OF AORTA Status: Chronic (7) CKD (chronic kidney disease) stage 3, GFR 30-59 ml/min Code(s): N18.3 - CHRONIC KIDNEY DISEASE, STAGE 3 (MODERATE) Status: Chronic (8) Diabetes type 2, controlled Code(s): E11.9 - TYPE 2 DIABETES MELLITUS WITHOUT COMPLICATIONS Status: Chronic (9) GERD (gastroesophageal reflux disease) Code(s): K21.9 - GASTRO-ESOPHAGEAL REFLUX DISEASE WITHOUT ESOPHAGITIS Status: Chronic (10) HLD (hyperlipidemia) Code(s): E78.5 - HYPERLIPIDEMIA, UNSPECIFIED Status: Chronic (11) HTN (hypertension) Code(s): I10 - ESSENTIAL (PRIMARY) HYPERTENSION Status: Chronic (12) Hypothyroidism Code(s): E03.9 - HYPOTHYROIDISM, UNSPECIFIED Status: Chronic - Plan old records reviewed/req, PT/OT, social insurance analyst, dc schaefer, dc IVF DC rocephin continue diflucan medication reviewed as below symptomatic treatment will need placement dc schaefer dc ivf medication adjusted for HTN add lantus 15 unit sc bid
[2019-03-21] MEDS ORDERED: Insulin Glargine 15 UNITS in Pre-Filled Syringe 1 EACH SC SCH (11:15)
--- NOTE | 2019-03-21 14:39 | PQF ---
MICHELINE CARTWRIGHT SALIM NOORJIBHAI MD [id number] [facility]-294 [id number] CLINICAL DOCUMENTATION IMPROVEMENT CLARIFICATION FORM: ICD-10 Updated PLEASE DO AN ADDENDUM TO THE PROGRESS NOTE WITH ANY DOCUMENTATION UPDATES OR ADDITIONS AND CARRY THROUGH TO DC SUMMARY. THANK YOU. DATE: 03/21 ATTN: DR. SAURABH MANUEL Please exercise your independent, professional judgment in responding to the clarification form. Clinical indicators are provided on the bottom of this form for your review. Please check appropriate box(s): [ ] TRAUMATIC RHABDOMYOLYSIS [ x ] NON-TRAUMATIC RHABDOMYOLYSIS [ ] Other diagnosis [ ] Unable to determine In addition, please specify: Present on Admission (POA): [ x] Yes [ ] No [ ] Unable to determine For continuity of documentation, please document condition throughout progress notes and discharge summary. Thank You. CLINICAL INDICATORS - SIGNS / SYMPTOMS / LABS ER REPORT 03/18: DAUGHTER REPORTS SHE WAS FOUND DOWN AT HOME TODAY AND CONFUSED ER PHYSICIAN DIAGNOSES: NSTEMI, RHABDOMYOLYSIS, UTI H&P (OLIVIA) 03/18: PATIENT PRESENTED TO THE ER AFTER BEING FOUND BY THE DAUGHTER ON THE FLOOR CARDIOLOGY CONSULT 03/18: 74 YEAR OLD FEMALE W/MULTIPLE FALLS. IT IS UNCERTAIN TO HOW LONG THE LADY HAS BEEN ON THE FLOOR. ACCORDING TO THE SISTER, SHE HAS 2-3 FALLS PER DAY & LIVES BY HERSELF. SHE WAS ADMITTED AFTER HAVING ANOTHER FALL & WAS FOUND ON THE FLOOR BY THE FAMILY & THEY BROUGHT HER TO THE HOSPITAL; IMPRESSION: PROBABLE RHABDOMYOLYSIS, FOUND ON THE FLOOR PN 03/19 - (MAR): 3) RHABDOMYOLYSIS, ACUTE CREATINE KINASE: 3149 (03/18), 1516 (03/19), 899 (03/20), 709 (03/21) RISKS: FOUND ON FLOOR, UNKNOWN DOWN TIME DEMENTIA ELEVATED CREATINE KINASE TREATMENT: IVF (NS 03/18 - ) MONITORING OF CREATINE KINASE (03/18 - PRESENT) THANK YOU! [facility] (This form is maintained as a part of the permanent medical record) 2014 [employer]. All Rights Reserved Mercy Lambert RN, BSN [email or web address] Office: [phone] [facility]
[2019-03-21] MEDS: Insulin Glargine 15 UNITS in Pre-Filled Syringe 1 EACH SC SCH (21:56)
[2019-03-21] MEDS: Atorvastatin Calcium 40 MG TAB PO SCH (21:58)
[2019-03-21] MEDS: HYDROcodone/Acetaminophen 5/325 mg Tablet PO PRN (22:04)
[2019-03-22] MEDS: Enoxaparin Sodium 40 MG/0.4 ML SYRINGE SC SCH (09:43)
[2019-03-22] MEDS: Insulin Glargine 15 UNITS in Pre-Filled Syringe 1 EACH SC SCH ×2 (09:43→20:38)
[2019-03-22] MEDS: hydrALAZINE 25 MG TAB PO SCH ×3 (09:44→20:39)
[2019-03-22] MEDS: Losartan 25 MG TAB PO SCH (09:45)
[2019-03-22] MEDS: cloNIDine 0.1 MG TAB PO SCH ×2 (09:46→20:39)
[2019-03-22] MEDS: Oxybutynin 5 MG TAB PO SCH ×2 (09:46→20:40)
[2019-03-22] MEDS: Levothyroxine Sodium 50 MCG TAB PO SCH (09:46)
[2019-03-22] MEDS: Amlodipine 5 MG TAB PO SCH (09:46)
[2019-03-22] MEDS: Fluconazole 100 MG TAB PO SCH (09:47)
[2019-03-22] MEDS: Aspirin 325 mg Enteric Coated Tablet PO SCH (09:47)
[2019-03-22] MEDS: Carvedilol 6.25 MG TAB PO SCH ×2 (09:47→20:40)
--- NOTE | 2019-03-22 11:21 | PDOC.HOSPP ---
- Subjective Subjective: Patient seen and examined. No new complaints. No overnight events - Objective Vital Signs & Weight: Vital Signs (12 hours) Temp Pulse Resp BP BP Pulse Ox 03/22/19 09:47 160/71 H 03/22/19 09:46 160/71 H 03/22/19 09:44 67 160/71 H 03/22/19 08:00 98.8 F 18 L 18 131/62 97 03/22/19 04:00 98.4 F 57 L 20 163/67 H 96 03/21/19 23:48 164/68 H Weight Weight 179 lb 8 oz I&O: 03/21/19 03/22/19 03/23/19 06:59 06:59 06:59 Intake Total 3140 1674 Output Total 2250 1525 Balance 890 149 Result Diagrams: 03/20/19 06:33 03/20/19 06:33 Additional Labs: Accuchecks 03/22/19 03/21/19 03/21/19 05:32 20:18 16:34 POC Glucose 198 H 236 H 199 H ROS - Review of Systems All systems: All other ROS were reviewed and found negative. Constitutional: denies: fever, chills, sweats, weakness, malaise, other Eyes: denies: pain, vision change, conjunctivae inflammation, eyelid inflammation, redness, other ENT: denies: ear pain, ear discharge, nose pain, nose discharge, nose congestion , mouth pain, mouth swelling, throat pain, throat swelling, other Respiratory: denies: cough, dry, shortness of breath, hemoptysis, SOB with excertion, pleuritic pain, sputum, wheezing, other Cardiovascular: denies: chest pain, palpitations, orthopnea, paroxysmal noc. dyspnea, edema, light headedness, other Gastrointestinal: denies: nausea, vomitting, abdominal pain, diarrhea, constipation, melena, hematochezia, other Genitourinary: denies: dysuria, frequency, incontinence, hematuria, retention, other Musculoskeletal: denies: neck pain, shoulder pain, arm pain, back pain, hand pain, leg pain, foot pain, other - Medication Medications: Active Medications Generic Name Dose Route Start Last Admin Trade Name Freq PRN Reason Stop Dose Admin Acetaminophen 650 mg 03/18/19 01:00 03/20/19 17:03 Tylenol PO 650 mg Q4H PRN Administration Headache/Fever/Mild Pain (1-3) Hydrocodone Bitart/Acetaminophen 1 tab 03/19/19 09:28 03/21/19 22:04 [place] 5/325 PO 1 tab Q4H PRN Administration Moderate Pain (4-6) Amlodipine Besylate 10 mg 03/19/19 09:30 03/22/19 09:46 Norvasc PO 10 mg DAILY GENESIS Administration Aspirin 325 mg 03/19/19 09:00 03/22/19 09:47 Ecotrin PO 325 mg DAILY GENESIS Administration Atorvastatin Calcium 40 mg 03/19/19 21:00 03/21/19 21:58 Lipitor PO 40 mg HS GENESIS Administration Carvedilol 6.25 mg 03/18/19 21:00 03/22/19 09:47 Coreg PO 6.25 mg BID GENESIS Administration Cholecalciferol 1,000 units 03/20/19 09:00 03/22/19 09:45 Vitamin D3 PO 1,000 units DAILY GENESIS Administration Clonidine 0.1 mg 03/19/19 16:35 03/20/19 17:02 Catapres PO 0.1 mg Q6HR PRN Administration Hypertension Clonidine 0.1 mg 03/20/19 21:00 03/22/19 09:46 Catapres PO 0.1 mg BID GENESIS Administration Enoxaparin Sodium 40 mg 03/18/19 09:00 03/22/19 09:43 Lovenox SC 40 mg 0900 GENESIS Administration Fluconazole 100 mg 03/21/19 09:00 03/22/19 09:47 Diflucan PO 100 mg DAILY GENESIS Administration Hydralazine HCl 10 mg 03/19/19 09:28 03/19/19 13:40 Apresoline SLOW IVP 10 mg Q4H PRN Administration SBP > 180 and HR < 70 Hydralazine HCl 100 mg 03/21/19 15:00 03/22/19 09:44 Apresoline PO 100 mg TID GENESIS Administration Insulin Glargine 15 units/ 0.15 mls @ 0 mls/hr 03/21/19 21:00 03/21/19 21:56 Miscellaneous Medication SC 0.15 mls HS GENESIS Administration Insulin Glargine 15 units/ 0.15 mls @ 0 mls/hr 03/22/19 09:00 03/22/19 09:43 Miscellaneous Medication SC 0.15 mls QAM GENESIS Administration Insulin Human Lispro 0 units 03/18/19 03:31 03/21/19 19:00 Humalog SC 2 unit .MILD SLIDING SCALE PRN Administration Mild Correctional Scale Insulin Human Lispro 0 units 03/19/19 21:15 03/20/19 20:36 Humalog SC 3 unit .BEDTIME SLIDING SC PRN Administration Bedtime Correctional Scale Levothyroxine Sodium 50 mcg 03/19/19 09:00 03/22/19 09:46 Synthroid PO 50 mcg DAILY GENESIS Administration Losartan Potassium 100 mg 03/19/19 09:00 03/22/19 09:45 Cozaar PO 100 mg DAILY GENESIS Administration Oxybutynin Chloride 5 mg 03/18/19 21:00 03/22/19 09:46 Ditropan PO 5 mg BID GENESIS Administration Pantoprazole Sodium 40 mg 03/19/19 09:00 03/22/19 09:47 Protonix PO 40 mg DAILY GENESIS Administration Sodium Chloride 10 ml 03/20/19 21:00 03/22/19 09:53 Flush - Normal Saline IVF Not Given Q12HR GENESIS - Exam NAD, awake alert Eye: PERRL, anicteric sclera ENT: normocephalic atraumatic, no oropharyngeal lesions Neck: supple, symmetric, no JVD Heart: RRR, no murmur, no gallops Respiratory: CTAB, no wheezes, no rales, no ronchi Gastrointestinal: soft, non-tender, non-distended, normal bowel sounds Extremities: no cyanosis, no clubbing, no edema Skin: normal turgor, no lesions Neurological: CN's grossly intact, normal sensation to touch, no focal deficits Musculoskeletal: normal tone, normal strength Psychiatric: normal affect, normal behavior Hosp A/P (1) Acute metabolic encephalopathy Code(s): G93.41 - METABOLIC ENCEPHALOPATHY Status: Resolved (2) Hypokalemia Code(s): E87.6 - HYPOKALEMIA Status: Resolved (3) Rhabdomyolysis Code(s): M62.82 - RHABDOMYOLYSIS Status: Acute (4) Type [address] elevation Code(s): I21.A1 - MYOCARDIAL INFARCTION TYPE 2 Status: Acute (5) UTI (urinary tract infection) Status: Acute (6) Atherosclerosis of aorta Code(s): I70.0 - ATHEROSCLEROSIS OF AORTA Status: Chronic (7) CKD (chronic kidney disease) stage 3, GFR 30-59 ml/min Code(s): N18.3 - CHRONIC KIDNEY DISEASE, STAGE 3 (MODERATE) Status: Chronic (8) Diabetes type 2, controlled Code(s): E11.9 - TYPE 2 DIABETES MELLITUS WITHOUT COMPLICATIONS Status: Chronic (9) GERD (gastroesophageal reflux disease) Code(s): K21.9 - GASTRO-ESOPHAGEAL REFLUX DISEASE WITHOUT ESOPHAGITIS Status: Chronic (10) HLD (hyperlipidemia) Code(s): E78.5 - HYPERLIPIDEMIA, UNSPECIFIED Status: Chronic (11) HTN (hypertension) Code(s): I10 - ESSENTIAL (PRIMARY) HYPERTENSION Status: Chronic (12) Hypothyroidism Code(s): E03.9 - HYPOTHYROIDISM, UNSPECIFIED Status: Chronic - Plan old records reviewed/req, PT/OT, social economist medically stable BP medication adjustment medication reviewed as below symptomatic treatment will need placement will discharge when snu arranged
[2019-03-22] MEDS: HumaLOG 300 UNITS/3 ML VIAL SC PRN (12:13)
[2019-03-22] MEDS: HYDROcodone/Acetaminophen 5/325 mg Tablet PO PRN (13:37)
--- NOTE | 2019-03-22 14:01 | PDOC.CTH ---
Cardiology Progress Note - Subjective The pt seen and examined. No overnight events. No cardiac complaints. - Objective Vital Signs Temp Pulse Pulse Resp BP BP BP 03/22/19 11:45 97.1 F L 52 L 18 153/67 H 03/22/19 11:33 69 160/70 H 03/22/19 09:47 160/71 H 03/22/19 09:46 160/71 H 03/22/19 09:44 67 160/71 H 03/22/19 08:00 98.8 F 18 L 18 131/62 03/22/19 04:00 98.4 F 57 L 20 163/67 H Pulse Ox 03/22/19 11:45 96 03/22/19 11:33 03/22/19 09:47 03/22/19 09:46 03/22/19 09:44 03/22/19 08:00 97 03/22/19 04:00 96 Weight 179 lb 8 oz 03/21/19 03/22/19 03/23/19 06:59 06:59 06:59 Intake Total 3140 1674 Output Total 2250 1525 Balance 890 149 - Physical Examination General/Neuro: alert & oriented x3 Neck: no JVD present Lungs: CTA Heart: RRR Abdomen: soft Extremities: other: (No edema) - Telemetry Telemetry Rhythm: SR - Labs Result Diagrams: 03/20/19 06:33 03/20/19 06:33 Troponin/CKMB CK-MB (CK-2) 43.6 ng/mL (0-6.6) H* 03/18/19 00:36 Troponin I 0.782 ng/mL (< 0.028) H* 03/20/19 06:33 - Assessment/Plan 1. Elevated Trop, CK, and CKMB - possible due to rebdomyolysis. ECG has not showed any ST or T wave change; cont to monitor 2. HTN - Will start Isosorbide dinitrate 10mg BID; 3. DM type 2 - managed by PCP 4. H of multiple falls, last episode was on 03/18/2019 5. Hx of TIAs 6. Hypothyroidism with elevated TSH on 03/18/2019 7. UTI - managed by PCP SCOTT reviewed * Echo on 03/18/2019 with EF 50-55%, diastolic dysfunction, mild MR, AR, and TR Pt. seen and eval by me. She says she is unable to walk since being admited. She can stand and was in the shower yesterday PM. Chest clear. RRR. BP is stabalizing. I agree with the A/P by the COMPUTER SYSTEM SPECIALIST. hermila Review of Systems - Review of Systems Constitutional: reports: no symptoms reported EENTM: reports: no symptoms reported Respiratory: reports: no symptoms reported Cardiac (ROS): reports: no symptoms reported ABD/GI: reports: no symptoms reported : reports: no symptoms reported
[2019-03-22] MEDS: Atorvastatin Calcium 40 MG TAB PO SCH (20:40)
[2019-03-22] MEDS: Isosorbide Dinitrate 5 MG TAB PO SCH (20:40)
[2019-03-23] MEDS: hydrALAZINE 25 MG TAB PO SCH ×3 (09:40→21:03)
[2019-03-23] MEDS: Amlodipine 5 MG TAB PO SCH (09:41)
[2019-03-23] MEDS: Fluconazole 100 MG TAB PO SCH (09:41)
[2019-03-23] MEDS: HYDROcodone/Acetaminophen 5/325 mg Tablet PO PRN (09:42)
[2019-03-23] MEDS: Isosorbide Dinitrate 5 MG TAB PO SCH ×2 (09:43→21:03)
[2019-03-23] MEDS: Aspirin 325 mg Enteric Coated Tablet PO SCH (09:43)
[2019-03-23] MEDS: Levothyroxine Sodium 50 MCG TAB PO SCH (09:43)
[2019-03-23] MEDS: Losartan 25 MG TAB PO SCH (09:43)
[2019-03-23] MEDS: Enoxaparin Sodium 40 MG/0.4 ML SYRINGE SC SCH (09:44)
[2019-03-23] MEDS: Carvedilol 6.25 MG TAB PO SCH ×2 (09:44→21:03)
[2019-03-23] MEDS: Insulin Glargine 15 UNITS in Pre-Filled Syringe 1 EACH SC SCH ×2 (09:44→21:04)
[2019-03-23] MEDS: Oxybutynin 5 MG TAB PO SCH ×2 (09:44→21:03)
[2019-03-23] MEDS: cloNIDine 0.1 MG TAB PO SCH ×2 (09:44→21:02)
--- NOTE | 2019-03-23 10:07 | PDOC.HOSPP ---
- Subjective Subjective: Patient seen and examined. No new complaints. No overnight events - Objective Vital Signs & Weight: Vital Signs (12 hours) Temp Pulse Resp BP Pulse Ox 03/23/19 09:40 62 03/23/19 07:48 98.4 F 60 20 134/59 L 99 03/23/19 04:06 98.2 F 57 L 18 131/63 97 03/23/19 00:00 18 Weight Weight 176 lb 9.6 oz I&O: 03/22/19 03/23/19 03/24/19 06:59 06:59 06:59 Intake Total 1674 1440 Output Total 1525 1125 Balance 149 315 Result Diagrams: 03/20/19 06:33 03/20/19 06:33 Additional Labs: Accuchecks 03/23/19 03/22/19 03/22/19 05:22 20:25 17:29 POC Glucose 112 H 104 116 H 03/22/19 11:21 POC Glucose 256 H EKG Reviewed by me: Yes ROS - Review of Systems All systems: All other ROS were reviewed and found negative. Eyes: denies: pain, vision change, conjunctivae inflammation, eyelid inflammation, redness, other ENT: denies: ear pain, ear discharge, nose pain, nose discharge, nose congestion , mouth pain, mouth swelling, throat pain, throat swelling, other Respiratory: denies: cough, dry, shortness of breath, hemoptysis, SOB with excertion, pleuritic pain, sputum, wheezing, other Cardiovascular: denies: chest pain, palpitations, orthopnea, paroxysmal noc. dyspnea, edema, light headedness, other Gastrointestinal: denies: nausea, vomitting, abdominal pain, diarrhea, constipation, melena, hematochezia, other Genitourinary: denies: dysuria, frequency, incontinence, hematuria, retention, other Musculoskeletal: denies: neck pain, shoulder pain, arm pain, back pain, hand pain, leg pain, foot pain, other Skin: denies: rash, lesions, cindy, bruising, other - Medication Medications: Active Medications Generic Name Dose Route Start Last Admin Trade Name Freq PRN Reason Stop Dose Admin Acetaminophen 650 mg 03/18/19 01:00 03/20/19 17:03 Tylenol PO 650 mg Q4H PRN Administration Headache/Fever/Mild Pain (1-3) Hydrocodone Bitart/Acetaminophen 1 tab 03/19/19 09:28 03/23/19 09:42 Vera 5/325 PO 1 tab Q4H PRN Administration Moderate Pain (4-6) Amlodipine Besylate 10 mg 03/19/19 09:30 03/23/19 09:41 Norvasc PO 10 mg DAILY GENESIS Administration Aspirin 325 mg 03/19/19 09:00 03/23/19 09:43 Ecotrin PO 325 mg DAILY GENESIS Administration Atorvastatin Calcium 40 mg 03/19/19 21:00 03/22/19 20:40 Lipitor PO 40 mg HS GENESIS Administration Carvedilol 6.25 mg 03/18/19 21:00 03/23/19 09:44 Coreg PO 6.25 mg BID GENESIS Administration Cholecalciferol 1,000 units 03/20/19 09:00 03/23/19 09:40 Vitamin D3 PO 1,000 units DAILY GENESIS Administration Clonidine 0.1 mg 03/19/19 16:35 03/20/19 17:02 Catapres PO 0.1 mg Q6HR PRN Administration Hypertension Clonidine 0.1 mg 03/20/19 21:00 03/23/19 09:44 Catapres PO 0.1 mg BID GENESIS Administration Enoxaparin Sodium 40 mg 03/18/19 09:00 03/23/19 09:44 Lovenox SC 40 mg 0900 GENESIS Administration Fluconazole 100 mg 03/21/19 09:00 03/23/19 09:41 Diflucan PO 100 mg DAILY GENESIS Administration Hydralazine HCl 10 mg 03/19/19 09:28 03/19/19 13:40 Apresoline SLOW IVP 10 mg Q4H PRN Administration SBP > 180 and HR < 70 Hydralazine HCl 100 mg 03/21/19 15:00 03/23/19 09:40 Apresoline PO 100 mg TID GENESIS Administration Insulin Glargine 15 units/ 0.15 mls @ 0 mls/hr 03/21/19 21:00 03/22/19 20:38 Miscellaneous Medication SC 0.15 mls HS GENESIS Administration Insulin Glargine 15 units/ 0.15 mls @ 0 mls/hr 03/22/19 09:00 03/23/19 09:44 Miscellaneous Medication SC 0.15 mls QAM GENESIS Administration Insulin Human Lispro 0 units 03/18/19 03:31 03/22/19 12:13 Humalog SC 4 unit .MILD SLIDING SCALE PRN Administration Mild Correctional Scale Insulin Human Lispro 0 units 03/19/19 21:15 03/20/19 20:36 Humalog SC 3 unit .BEDTIME SLIDING SC PRN Administration Bedtime Correctional Scale Isosorbide Dinitrate 10 mg 03/22/19 21:00 03/23/19 09:43 Isordil PO 10 mg BID GENESIS Administration Levothyroxine Sodium 50 mcg 03/19/19 09:00 03/23/19 09:43 Synthroid PO 50 mcg DAILY GENESIS Administration Losartan Potassium 100 mg 03/19/19 09:00 03/23/19 09:43 Cozaar PO 100 mg DAILY GENESIS Administration Oxybutynin Chloride 5 mg 03/18/19 21:00 03/23/19 09:44 Ditropan PO 5 mg BID GENESIS Administration Pantoprazole Sodium 40 mg 03/19/19 09:00 03/23/19 09:43 Protonix PO 40 mg DAILY GENESIS Administration Sodium Chloride 10 ml 03/20/19 21:00 03/22/19 20:41 Flush - Normal Saline IVF 10 ml Q12HR GENESIS Administration - Exam NAD, awake alert Eye: PERRL, anicteric sclera ENT: normocephalic atraumatic, no oropharyngeal lesions Neck: supple, symmetric, no JVD, no Thyromegaly Heart: RRR, no murmur, no gallops Respiratory: CTAB, no wheezes, no rales, no ronchi Gastrointestinal: soft, non-tender, non-distended, normal bowel sounds Extremities: no cyanosis, no clubbing, no edema Skin: normal turgor, no lesions, no rashes Neurological: CN's grossly intact, normal sensation to touch, no focal deficits Musculoskeletal: normal tone, normal strength, no muscle wasting Psychiatric: normal affect, normal behavior Hosp A/P (1) Acute metabolic encephalopathy Code(s): G93.41 - METABOLIC ENCEPHALOPATHY Status: Resolved (2) Hypokalemia Code(s): E87.6 - HYPOKALEMIA Status: Resolved (3) Rhabdomyolysis Code(s): M62.82 - RHABDOMYOLYSIS Status: Acute (4) Type [address] elevation Code(s): I21.A1 - MYOCARDIAL INFARCTION TYPE 2 Status: Acute (5) UTI (urinary tract infection) Status: Acute (6) Atherosclerosis of aorta Code(s): I70.0 - ATHEROSCLEROSIS OF AORTA Status: Chronic (7) CKD (chronic kidney disease) stage 3, GFR 30-59 ml/min Code(s): N18.3 - CHRONIC KIDNEY DISEASE, STAGE 3 (MODERATE) Status: Chronic (8) Diabetes type 2, controlled Code(s): E11.9 - TYPE 2 DIABETES MELLITUS WITHOUT COMPLICATIONS Status: Chronic (9) GERD (gastroesophageal reflux disease) Code(s): K21.9 - GASTRO-ESOPHAGEAL REFLUX DISEASE WITHOUT ESOPHAGITIS Status: Chronic (10) HLD (hyperlipidemia) Code(s): E78.5 - HYPERLIPIDEMIA, UNSPECIFIED Status: Chronic (11) HTN (hypertension) Code(s): I10 - ESSENTIAL (PRIMARY) HYPERTENSION Status: Chronic (12) Hypothyroidism Code(s): E03.9 - HYPOTHYROIDISM, UNSPECIFIED Status: Chronic - Plan old records reviewed/req, PT/OT, addiction social worker pt has approval for swing bed but await insurance approval medication reviewed as below symptomatic treatment stable
[2019-03-23] MEDS: HumaLOG 300 UNITS/3 ML VIAL SC PRN (12:06)
--- NOTE | 2019-03-23 12:23 | PDOC.CTH ---
Cardiology Progress Note - Subjective The pt seen and examined. No overnight events. No cardiac complaints. - Objective Vital Signs Temp Pulse Resp BP Pulse Ox 03/23/19 12:00 98.4 F 65 20 130/60 96 03/23/19 09:40 62 03/23/19 07:48 98.4 F 60 20 134/59 L 99 03/23/19 04:06 98.2 F 57 L 18 131/63 97 Weight 176 lb 9.6 oz 03/22/19 03/23/19 03/24/19 06:59 06:59 06:59 Intake Total 1674 1440 Output Total 1525 1125 Balance 149 315 - Physical Examination General/Neuro: alert & oriented x3 Neck: no JVD present Lungs: CTA (diminished at bases) Heart: RRR Abdomen: soft Extremities: other: (No edema) - Telemetry Telemetry Rhythm: SR - Labs Result Diagrams: 03/20/19 06:33 03/20/19 06:33 Troponin/CKMB CK-MB (CK-2) 43.6 ng/mL (0-6.6) H* 03/18/19 00:36 Troponin I 0.782 ng/mL (< 0.028) H* 03/20/19 06:33 - Assessment/Plan 1. Elevated Trop, CK, and CKMB - possible due to rebdomyolysis. ECG has not showed any ST or T wave change; cont to monitor 2. HTN - well controlled 3. DM type 2 - managed by PCP 4. H of multiple falls, last episode was on 03/18/2019 5. Hx of TIAs 6. Hypothyroidism with elevated TSH on 03/18/2019 7. UTI - managed by PCP MAR reviewed * Echo on 03/18/2019 with EF 50-55%, diastolic dysfunction, mild MR, AR, and TR * from Cardiac standpoint, the pt is stable to tx to rehab. Pt. seen and eval. by me. I agree with the A/P by the DRIED FRUIT WASHER. She denies chest pain at this time.BP stable. Chest clear. RRR. Review of Systems - Review of Systems Constitutional: reports: no symptoms reported EENTM: reports: no symptoms reported Respiratory: reports: no symptoms reported Cardiac (ROS): reports: no symptoms reported ABD/GI: reports: no symptoms reported : reports: no symptoms reported
--- NOTE | 2019-03-23 15:15 | DIS ---
DATE OF ADMISSION: 03/18/2019 DATE OF DISCHARGE: 03/23/2019 PRIMARY CARE PHYSICIAN: Emely Griffiths. DISCHARGE DISPOSITION: Swing bed. PRIMARY DISCHARGE DIAGNOSES: Rhabdomyolysis; type 2 myocardial infarction; candiduria; acute metabolic encephalopathy, resolved; hypokalemia, corrected. SECONDARY DISCHARGE DIAGNOSES: Hypothyroidism, hypertension, gastroesophageal reflux disease, diabetes type 2, atherosclerosis, physical deconditioning. PRIMARY PROCEDURE/OPERATION: None. RADIOLOGICAL INVESTIGATION: Echocardiography. SIGNIFICANT LABORATORY DATA: WBC 9.3, hemoglobin 11.0, platelet 204. CK 709. DISCHARGE MEDICATIONS: 1. Coreg 6.25 mg b.i.d. 2. Vitamin D3 1000 units p.o. daily. 3. Humalog insulin as per sliding scale. 4. Tresiba 30 units subcu daily. 5. Levoxyl 50 mcg p.o. daily. 6. Ditropan 5 mg b.i.d. 7. Protonix 40 mg p.o. daily. 8. Amlodipine 10 mg daily. 9. Aspirin 325 mg p.o. daily. 10. Lipitor 40 mg p.o. at bedtime. 11. Clonidine 0.1 mg b.i.d. 12. Diflucan 100 mg p.o. daily. 13. Losartan 100 mg p.o. daily. 14. Hydralazine 100 mg t.i.d. CONTRAINDICATION: None. CODE STATUS: Full code. INPATIENT ACTUARY: Cardiology group was following while in hospital. TEST RESULTS PENDING ON DISCHARGE: None. ALLERGIES: PENICILLIN. DISCHARGE PLAN: Posthospital, the patient is discharged to swing bed. Subsequently, the patient will follow up with primary care physician. HOSPITAL COURSE: This is a 74-year-old female, who was admitted by Dr. Mari. Please see his H and P for further details. The patient was admitted for rhabdomyolysis. She had significantly abnormal troponin, but that was attributed to be due to type 2 myocardial infarction. The patient also had metabolic encephalopathy, which was improved. The patient was also treated for urinary tract infection, and her urine culture grew yeast and that is why we changed to Diflucan therapy. The patient's rhabdomyolysis improved with IV fluid therapy. The patient's blood pressure was remaining high while in hospital and that is why above-mentioned medication adjustment was done. With this therapy, the patient's blood pressure was well controlled. The patient was stable for discharge. The patient stayed in hospital for few more days because she was waiting for [facility] home arrangement. With the help of case supervisor, we arranged a swing bed. Overall, the patient is medically stable for discharge. The patient is seen and examined at bedside today. Please see my progress note from today. Paperwork for discharge done. Discharge medication reconciliation done. Job ID: [id number]
[2019-03-23] MEDS: Atorvastatin Calcium 40 MG TAB PO SCH (21:03)
[2019-03-23 22:00] VITALS: TEMP 97.4
--- NOTE | 2019-03-24 06:35 | PQF ---
[employer] MICHELINE Morgan SAURABH MANUEL MD [id number] CLINICAL DOCUMENTATION CLARIFICATION FORM: POST DISCHARGE Addendum to original discharge summary date: ____ Late entry note date: __ DATE: 03/24/2019 ATTN: SAURABH MANUEL MD Please exercise your independent, professional judgment in responding to the clarification form. Clinical indicators are provided on the bottom of this form for your review Please check appropriate box(s) to clarify if the following diagnosis has been ruled in or ruled out: Sepsis [ ] Ruled in diagnosis [ ] Continue to treat [ ] Resolved [x ] Ruled out diagnosis [ ] Cannot rule out diagnosis [ ] Other diagnosis [ ] Unable to determine For continuity of documentation, please document condition throughout progress notes and discharge summary. Thank You. CLINICAL INDICATORS - SIGNS / SYMPTOMS / LABS -Possible Sepsis, WBC of 17, RR:20, possible source is UTI- H&P, p3, 03/18, ADELA BAKER MD -UTI, H&P, p3, 03/18, ADELA BAKER MD -Candiduria, Acute metabolic encephalopathy, esolved- DS, pg1, 03/23, Fidencio Torres MD -Urine grew Yeast- DS, pg2, 03/23, Fidencio Torres MD RISK FACTORS -Rhabdomylosis-DS, pg1, 03/23, Fidencio Torres MD -Type 2 AL-DS, pg1, 03/23, Fidencio Torres MD TREATMENTS - Cetriaxone.IV- 03/18 - Sodium chloride.IV--03/18 (This form is maintained as a part of the permanent medical record) 2014 [employer]. All Rights Reserved Lee Ann Rader [not provided] [not provided] MTDD
[2019-03-25 13:40] VITALS: BP 160/70
--- NOTE | 2019-03-25 16:06 | EKG ---
Test Reason : Blood Pressure : / mmHG Vent. Rate : 085 BPM Atrial Rate : 085 BPM P-R Int : 120 ms QRS Dur : 064 ms QT Int : 366 ms P-R-T Axes : 034 007 -34 degrees QTc Int : 435 ms Normal sinus rhythm Septal infarct , age undetermined Abnormal ECG Confirmed by KELLEY TAM M.D. ([id number]), acquisitions editor CAMILA WYATT ([id number]) on 03/25/2019 2:59:45 PM Referred By: Confirmed By:KELLEY TAM M.D.
== END 2019-03-23 21:15 | DRG 280 ==
LOC: ERS 23:31 → 2NO 03-18 02:22
PROVIDERS: ADMIT Hospitalist; ATTEND Hospitalist
DX: I21.A1 Myocardial infarction type 2 (principal); G93.41 Metabolic encephalopathy; M62.82 Rhabdomyolysis; B37.49 Other urogenital candidiasis; E87.6 Hypokalemia; E03.9 Hypothyroidism, unspecified; K21.9 Gastro-esophageal reflux disease without esophagitis; I70.90 Unspecified atherosclerosis; R53.81 Other malaise; F03.90 Unspecified dementia, unspecified severity, without behavioral disturbance, psychotic disturbance, mood disturbance, and anxiety; R29.810 Facial weakness; E66.9 Obesity, unspecified; I12.9 Hypertensive chronic kidney disease with stage 1 through stage 4 chronic kidney disease, or unspecified chronic kidney disease; E11.22 Type 2 diabetes mellitus with diabetic chronic kidney disease; N18.3 Chronic kidney disease, stage 3 (moderate); Z90.49 Acquired absence of other specified parts of digestive tract; Z88.0 Allergy status to penicillin; Z79.4 Long term (current) use of insulin; Z86.73 Personal history of transient ischemic attack (TIA), and cerebral infarction without residual deficits; Z91.81 History of falling; Z68.28 Body mass index [BMI] 28.0-28.9, adult
CPT/HCPCS: 36415; 36416; 70486; 80048; 80053; 82550; 82553; 83605; 84443; 84484; 85025; 93005; 93306; 96365; 96366; 96372; J0360; J0696; J1650; J1815; J3490

== ENCOUNTER 2019-04-10 20:06 | Observation (INO) | payer MEDICARE ==
[2019-04-10 20:34] LABS: #Basophils 0.1 thou/uL (0.0-0.2); #Eosinphils 0.4 thou/uL (0.0-0.7); #Lymphocytes 3.7 thou/uL (1.20-3.40); #Monocytes 0.9 thou/uL (0.11-0.59); #Neutrophils 7.9 thou/uL (1.40-6.50); %Basophils 0.5 % (0.0-1.0); %Lymphocytes 28.6 % (21.0-51.0); %Monocytes 7.2 % (0.0-10.0); %Neutrophils 60.6 % (42.0-75.0); Hemoglobin 12.6 g/dL (12.0-16.0); Mean Corpuscular HGB CONC 33.1 g/dL (32.0-36.0); Mean Corpuscular Hemoglobin 28.5 pg (27.0-31.0); Mean Corpuscular Volume 86.2 fL (78.0-98.0); Mean Platelet Volume 8.5 fL (7.4-10.4); Platelet Count 264 thou/uL (130-400); Red Blood Cell (RBC) Count 4.44 mill/uL (4.20-5.40); White Blood Cell (WBC) Count 13.1 thou/uL (4.8-10.8)
[2019-04-10 20:57] LABS: ALT (SGPT) 46 U/L (8-55); AST (SGOT) 34 U/L (5-34); Albumin 3.9 g/dL (3.4-4.8); Alkaline Phosphatase 112 U/L (40-150); Anion Gap 14 mmol/L (10-20); BUN (Urea Nitrogen) 19 mg/dL (9.8-20.1); Bilirubin, Total 0.3 mg/dL (0.2-1.2); Calc. Creatinine Clearance 0 mL/min (70-130); Calcium 9.9 mg/dL (7.8-10.44); Carbon Dioxide 26 mmol/L (23-31); Chloride 107 mmol/L (98-107); Estimated GFR-MDRD 37; Globulin 3.8 g/dL (2.4-3.5); Glucose 84 mg/dL (83-110); Potassium 3.7 mmol/L (3.5-5.1); Protein, Total 7.7 g/dL (6.0-8.3); Sodium 143 mmol/L (136-145)
--- NOTE | 2019-04-10 22:14 | CT ---
CT BRAIN WITHOUT CONTRAST: Date: 04/10/19 HISTORY: Syncope. FINDINGS: Comparison made with exam of 03/17/19. Changes of chronic small vessel ischemic disease are again seen. The ventricular size is stable and t he basilar cisterns are patent. No evidence of acute infarct, hemorrhage, midline shift, or abnormal extra-axial fluid collections are seen. The bony calvarium is intact. The visualized paranasal sinuse s and mastoid air cells are well aerated. IMPRESSION: No CT evidence of acute intracranial process. POS: LORRIA
[2019-04-10 23:55] LABS: Troponin I 0.016 ng/mL (< 0.028)
[2019-04-11 00:50] VITALS: BMI 30.4
[2019-04-11] MEDS ORDERED: hydrALAZINE 20 MG/ML VIAL SLOW IVP PRN (01:42)
[2019-04-11 02:48] LABS: Troponin I 0.015 ng/mL (< 0.028)
--- NOTE | 2019-04-11 12:51 | ULT ---
BILATERAL CAROTID DUPLEX ULTRASOUND: HISTORY: Syncope. TECHNIQUE: Maxwell scale ultrasound with color flow and spectral Doppler imaging of the extracranial carotid system s was performed bilaterally. FINDINGS: There is plaque formation on both sides. The peak systolic velocity in the right ICA measures 77 cm/s with an end-diastolic velocity of 12 cm/ s and a systolic ratio of 1.01. The peak systolic velocity in the left ICA measures 43 cm/s with an end-diastolic velocity of 10 cm/s and a systolic ratio of 0.32. Flow in both vertebral arteries remains antegrade. IMPRESSION: No evidence of hemodynamically significant stenosis in either internal carotid artery. POS: TPC
--- NOTE | 2019-04-11 13:01 | MRI ---
MRI BRAIN WITHOUT CONTRAST: HISTORY: Syncope. COMPARISON: 11/26/2015. CORRELATION: CT brain of 04/10/2019. FINDINGS: Scattered foci of T2 prolongation of the periventricular white matter are again seen consistent with chronic small-vessel ischemic disease. The ventricular size is stable and the basilar cisterns paten t. No restricted diffusion is seen. No evidence of infarct, hemorrhage, midline shift, or abnormal extraaxial fluid collection is noted. Cortical atrophy is stable. The visualized paranasal sinuses and mastoid air cells are well aerated. IMPRESSION: Stable exam. No evidence of acute intracranial process. POS: TPC
[2019-04-11] MEDS ORDERED: hydrALAZINE 25 MG TAB PO SCH ×2 (16:00→21:00)
[2019-04-11] MEDS ORDERED: cloNIDine 0.1 MG TAB PO SCH ×2 (18:15→21:00)
[2019-04-11 18:52] LABS: Bacteria/HPF None Seen HPF (None Seen); Bilirubin Negative (Negative); Blood, Urine Negative (Negative); Clarity Clear (Clear); Glucose, Urine (Dipstick) Greater than 1000 mg/dL (Negative); Leukocyte 75 Leu/uL (Negative); Nitrite Negative (Negative); Protein, Urine (Dipstick) 50 mg/dL (Neg-Trace); Squamous Epithelial 0-3 HPF (0-3); Urobilinogen Normal mg/dL (Less than 2); WBC/HPF 21-50 HPF (0-3); Yeast-Budding 2+ HPF (None Seen)
[2019-04-11 18:53] LABS: Urine Culture Reflex Yes Yes
[2019-04-11 20:06] VITALS: BP 178/62
[2019-04-11 20:13] VITALS: TEMP 97.8
[2019-04-11] MEDS ORDERED: Atorvastatin Calcium 40 MG TAB PO SCH (21:00)
[2019-04-11] MEDS ORDERED: Oxybutynin 5 MG TAB PO SCH (21:00)
[2019-04-11] MEDS ORDERED: Prevnar 13-Val Conj/PF 0.5 ML SYRINGE IM ONE (21:00)
[2019-04-11] MEDS ORDERED: Carvedilol 6.25 MG TAB PO SCH (21:00)
--- NOTE | 2019-04-12 01:48 | SS ---
DATE OF ADMISSION: 04/10/2019 DATE OF DISCHARGE: 04/11/2019 CHIEF COMPLAINT: Syncope. HISTORY OF PRESENT ILLNESS: The patient is a 74-year-old female with a past medical history of TIA of hypertension, diabetes, dementia, frequent falls, who presents to the hospital with complaints of a syncopal episode. The patient's granddaughter was at the bedside states that she was sitting at the dinner table when she kind of slumped over. Her granddaughter helped her to the floor. She at that time had some shaking of the upper hand and then at this time, she called her father who called the EMS. According to the granddaughter, the episode lasted for about maybe 3 minutes or less. The patient was then awake and she was oriented and was back to her baseline. The patient had a similar episode back in late February or early March. The patient had a CT initially. CT head did not show any acute abnormalities. She also had a brain MRI, which was stable. No evidence of infarct or hemorrhage or midline shift was noted. No cortical atrophy was noted, but it was stable. She did have some chronic small-vessel ischemic disease. I also ordered a carotid Doppler on her, which did not indicate any stenosis of the internal carotid arteries. Also did orthostatics which were negative on this patient. The patient's troponin x3 were negative. Her TSH was normal. I did speak with the patient's daughter, Ms. Mars Teague, and I did update her and did tell her that the patient will need a followup with possibly Cardiology for possible maybe some arrhythmias, may need a loop recorder and also with Neurology to rule out any kind of seizure activity. However, I did not think that this was seizures given the fact that she had no postictal state and the patient had a syncopal episode. PAST MEDICAL HISTORY: The patient's past medical history is as of the following. 1. She has a history of hypertension. 2. Diabetes. 3. TIA. 4. Dementia. PAST SURGICAL HISTORY: She has had an appendectomy, hysterectomy, left shoulder surgery, right shoulder surgery, and left carpal tunnel release. SOCIAL HISTORY: She lives currently with her son and his family. She was a former smoker. She has no drinking issues. She is a full code. I have discussed this with her daughter, Ms. Crews, who will address the code status with the patient and the family. FAMILY HISTORY: No history of heart disease or cancer. MEDICATIONS: She is on, 1. Aspirin 325 daily. 2. Lipitor 40 mg daily. 3. She is also on carvedilol 6.25 b.i.d. 4. Clonidine 0.1 b.i.d. 5. Hydralazine 100 mg t.i.d. 6. She is on levothyroxine 50 mcg daily. 7. Oxybutynin 5 mg daily. 8. Protonix 40 mg daily. ALLERGIES: SHE IS ALLERGIC TO PENICILLIN. CODE STATUS: Again, she is a full code. REVIEW OF SYSTEMS: All negative except for the ones mentioned above in the HPI. PHYSICAL EXAMINATION: VITAL SIGNS: As of the following. As mentioned, her orthostatics were 170, sitting was 171/76, standing was 172/75, lying was 185/77. Temperature is 98.6, 71, 20, and 97% on room air. GENERAL: She is awake, oriented x2. CV: S1, S2 present. No murmurs, rubs, or gallops. LUNGS: Clear to auscultation. No rhonchi or wheezes noted. HEENT: Normocephalic, atraumatic. No lymphadenopathy noted. Pupils are equal and reactive to light. ABDOMEN: Soft and nontender. Bowel sounds are present x2. EXTREMITIES: No edema. Pedal pulses are present x2. NEUROVASCULAR: No focal deficits noted. SKIN: No cuts, lesions or bruises noted. LABORATORY RESULTS: Sodium 143, potassium 3.7, BUN of 19, creatinine 1.64, glucose of 84. LFTs are normal. Troponins x3 were negative. Hematology; WBCs of 13.1, hematocrit of 38.2, hemoglobin of 12.6, and platelets of 264. She also had a MRI brain, which was negative. CT head, which indicated no CT evidence of acute intracranial processes. ASSESSMENT AND PLAN: The patient is a 74-year-old female, who presents to the hospital with syncopal episode. 1. Syncope, unclear etiology. I am not sure this is medication related versus cardiac versus neurological. Her echo was done back in February of 2019, which indicated an EF of 50% to 55%, mild mitral regurgitation, mild aortic regurgitation, otherwise it was fairly normal. Her carotid Dopplers were negative. Her MRI brain was negative. Orthostatic negative. Thyroid is negative. I am not sure this is secondary to her dementia versus polypharmacy. I have asked the patient's family to take her to Cardiology for possible loop monitor and also for neurology. I do not believe this is a seizure, however, definitely could be in the diagnosis. 2. She will be discharged home. She will follow up with the primary Cardiology and Neurology, and I have updated the patient's daughter about this. 3. Diabetes. Can continue with home medications. 4. Hypertension. We will continue her home medications. 5. Dementia. I did talk with the family with her daughter in regard to possible getting code status. Job ID: [id number]
[2019-04-12] MEDS ORDERED: Levothyroxine Sodium 50 MCG TAB PO SCH (06:00)
[2019-04-12] MEDS ORDERED: Hydrochlorothiazide 25 MG TAB PO SCH (09:00)
[2019-04-12] MEDS ORDERED: Losartan 25 MG TAB PO SCH (09:00)
[2019-04-12] MEDS ORDERED: Aspirin 325 mg Enteric Coated Tablet PO SCH (09:00)
[2019-04-12] MEDS ORDERED: PATIENT'S HOME MEDICATION SC SCH (09:00)
[2019-04-12] MEDS ORDERED: Insulin Glargine 30 UNITS in Pre-Filled Syringe 1 EACH SC SCH (09:00)
--- NOTE | 2019-04-16 11:43 | EKG ---
Test Reason : Blood Pressure : / mmHG Vent. Rate : 059 BPM Atrial Rate : 059 BPM P-R Int : 126 ms QRS Dur : 076 ms QT Int : 426 ms P-R-T Axes : 047 004 -06 degrees QTc Int : 421 ms Sinus bradycardia Nonspecific T wave abnormality Abnormal ECG Confirmed by JOANN CARSON ([id number]), scientific publications editor EUGENE FREDERICK ([id number]) on 04/16/2019 11:43:26 AM Referred By: Confirmed By:JOANN CARSON
== END 2019-04-11 20:16 | disposition home or self-care (01) ==
LOC: ERS 20:06 → 2SW 22:35
PROVIDERS: ADMIT Hospitalist; ATTEND Hospitalist
DX: R55 Syncope and collapse (principal); I10 Essential (primary) hypertension; E11.9 Type 2 diabetes mellitus without complications; F03.90 Unspecified dementia, unspecified severity, without behavioral disturbance, psychotic disturbance, mood disturbance, and anxiety; R29.6 Repeated falls; Z86.73 Personal history of transient ischemic attack (TIA), and cerebral infarction without residual deficits; Z87.891 Personal history of nicotine dependence; Z88.0 Allergy status to penicillin; Z79.82 Long term (current) use of aspirin; Z79.4 Long term (current) use of insulin; Z79.899 Other long term (current) drug therapy
CPT/HCPCS: 70450; 70551; 80053; 81001; 82306; 82607; 82962; 84443; 84484 ×3; 85025; 87086; 93005; 93880; 96361; 96374; 99285; G0378 ×2; 36415; 36416; 96360; J0360

== ENCOUNTER 2019-05-27 19:18 | Inpatient (IN) | payer MEDICARE ==
[2019-05-27 20:05] LABS: Bilirubin Negative (Negative); Blood, Urine 1+ (Negative); Clarity Clear (Clear); Glucose, Urine (Dipstick) Greater than 1000 mg/dL (Negative); Leukocyte Negative Leu/uL (Negative); Nitrite Negative (Negative); Protein, Urine (Dipstick) 600 mg/dL (Neg-Trace); Squamous Epithelial 0-3 HPF (0-3); Urobilinogen Normal mg/dL (Less than 2)
[2019-05-27 20:13] LABS: Bacteria/HPF Rare-Few HPF (None Seen); Yeast-Budding 3+ HPF (None Seen)
--- NOTE | 2019-05-27 20:21 | RAD ---
FRONTAL VIEW CHEST: 05/27/19 COMPARISON: 03/18/19. INDICATION: AMS. FINDINGS: The lungs are clear. There is no effusion or pneumothorax. The cardiac silhouette is stable in size. IMPRESSION: Stable chest, without focal consolidation. POS: ANTHONYK
--- NOTE | 2019-05-27 20:24 | CT ---
CT HEAD NONCONTRAST: 05/27/19 INDICATION: Altered mental status. Reference made to 04/16/19 exam. Stable prominence of ventricular system with periventricular white matter hypoattenuation. No intracr anial hemorrhage, mass effect or midline shift. Retention cyst formation of the left maxillary sinus is partially visualized. IMPRESSION: Stable head CT with evidence of ventriculomegaly and periventricular white matter hypoattenuation. Re commend clinical correlation to exclude evidence of normal pressure hydrocephalus, as this is a clini brandy diagnosis. POS: MARCELLUS
[2019-05-27 20:37] LABS: ALT (SGPT) 33 U/L (8-55); AST (SGOT) 34 U/L (5-34); Albumin 4.1 g/dL (3.4-4.8); Alkaline Phosphatase 119 U/L (40-110); Anion Gap 17 mmol/L (10-20); BUN (Urea Nitrogen) 20 mg/dL (9.8-20.1); Bilirubin, Total 0.6 mg/dL (0.2-1.2); CK (CPK) 115 U/L (29-168); Calc. Creatinine Clearance 0 mL/min (70-130); Calcium 10.2 mg/dL (7.8-10.44); Carbon Dioxide 27 mmol/L (23-31); Chloride 99 mmol/L (98-107); Estimated GFR-MDRD 41; Globulin 4.4 g/dL (2.4-3.5); Glucose 335 mg/dL (83-110); Lipase 14 U/L (8-78); Potassium 4.1 mmol/L (3.5-5.1); Protein, Total 8.5 g/dL (6.0-8.3); Sodium 139 mmol/L (136-145)
[2019-05-27 20:39] LABS: Medtox Reader # READER 4
[2019-05-27 20:40] LABS: Amphetamine Not Detected (NotDetected); Barbiturates Screen Not Detected (NotDetected); Benzodiazepine Screen Not Detected (NotDetected); Cocaine Metabolite Screen Not Detected (NotDetected); Medtox Control Line Valid? VALID (VALID); Methadone Not Detected (NotDetected); Methamphetamine Not Detected (NotDetected); Opiate Screen Not Detected (NotDetected); Oxycodone Screen Not Detected (NotDetected); Phencyclidine (PCP) Not Detected (NotDetected); THC/Cannabinoid Screen Not Detected (NotDetected); Tricyclic Screen Not Detected (NotDetected)
[2019-05-27 20:52] LABS: Base Excess-Venous 1.4 mmol/L (-2.0 to 3.0); CO2 Tension (PvCO2) 39.9 mmHg (40.0-50.0); Calcium, Ionized 1.08 mmol/L (See Comments:); Chloride 106 mmol/L (98-107); Hemoglobin - Calc 16.7 g/dL (12.0-16.0); Potassium 4.1 mmol/L (3.5-5.1); Sodium 142 mmol/L (138-145); T. Carbon Dioxide 27.2 mmol/L (22.0-28.0); vO2 Saturation-calc 71.2 % (60.0-85.0)
[2019-05-27 21:08] LABS: #Basophils 0.1 thou/uL (0.0-0.2); #Lymphocytes 2.1 thou/uL (1.20-3.40); #Monocytes 0.8 thou/uL (0.11-0.59); #Neutrophils 13.7 thou/uL (1.40-6.50); %Basophils 0.6 % (0.0-1.0); %Eosinophils 0.3 % (0.0-10.0); %Lymphocytes 12.3 % (21.0-51.0); %Monocytes 4.8 % (0.0-10.0); Hemoglobin 14.8 g/dL (12.0-16.0); Mean Corpuscular HGB CONC 32.6 g/dL (32.0-36.0); Mean Corpuscular Hemoglobin 28.3 pg (27.0-31.0); Mean Corpuscular Volume 86.6 fL (78.0-98.0); Mean Platelet Volume 9.8 fL (7.4-10.4); Platelet Count 200 thou/uL (130-400); RBC Distribution Width 13.9 % (11.5-14.5); Red Blood Cell (RBC) Count 5.24 mill/uL (4.20-5.40); White Blood Cell (WBC) Count 16.7 thou/uL (4.8-10.8)
[2019-05-27] MEDS ORDERED: hydrALAZINE 20 MG/ML VIAL ONE (21:35)
[2019-05-27 23:21] LABS: Troponin I 0.014 ng/mL (< 0.028)
[2019-05-28] MEDS ORDERED: Ondansetron PF 4 MG/2 ML Vial IVP PRN (01:14)
[2019-05-28] MEDS ORDERED: Acetaminophen 650 MG Suppository PR PRN (01:14)
[2019-05-28] MEDS ORDERED: Ondansetron ODT 4 MG TAB PO PRN (01:14)
[2019-05-28 02:34] VITALS: BMI 26.4
[2019-05-28 03:04] LABS: Troponin I 0.037 ng/mL (< 0.028)
[2019-05-28] MEDS: cloNIDine 0.1 MG TAB PO PRN (04:39)
[2019-05-28 04:47] LABS: #Basophils 0.1 thou/uL (0.0-0.2); #Eosinphils 0.1 thou/uL (0.0-0.7); #Lymphocytes 2.6 thou/uL (1.20-3.40); #Monocytes 1.4 thou/uL (0.11-0.59); #Neutrophils 12.1 thou/uL (1.40-6.50); %Basophils 0.4 % (0.0-1.0); %Eosinophils 0.3 % (0.0-10.0); %Lymphocytes 15.9 % (21.0-51.0); %Monocytes 8.8 % (0.0-10.0); %Neutrophils 74.6 % (42.0-75.0); Hemoglobin 14.2 g/dL (12.0-16.0); Mean Corpuscular HGB CONC 31.4 g/dL (32.0-36.0); Mean Corpuscular Hemoglobin 27.3 pg (27.0-31.0); Mean Corpuscular Volume 86.9 fL (78.0-98.0); Mean Platelet Volume 9.7 fL (7.4-10.4); Platelet Count 229 thou/uL (130-400); Red Blood Cell (RBC) Count 5.21 mill/uL (4.20-5.40); White Blood Cell (WBC) Count 16.2 thou/uL (4.8-10.8)
[2019-05-28 05:05] LABS: Anion Gap 17 mmol/L (10-20); BUN (Urea Nitrogen) 20 mg/dL (9.8-20.1); Calc. Creatinine Clearance 48 mL/min (70-130); Calcium 9.9 mg/dL (7.8-10.44); Carbon Dioxide 23 mmol/L (23-31); Chloride 102 mmol/L (98-107); Estimated GFR-MDRD 51; Glucose 320 mg/dL (83-110); Potassium 3.7 mmol/L (3.5-5.1); Sodium 138 mmol/L (136-145)
[2019-05-28] MEDS ORDERED: Dextrose 5% in Water 1,000 ML IV PRN ×2 (06:13→10:17)
[2019-05-28] MEDS ORDERED: Dextrose 50% Abboject 50 ML SYRINGE SLOW IVP PRN ×2 (06:13→10:17)
[2019-05-28] MEDS: Levothyroxine Sodium 50 MCG TAB PO SCH (06:35)
--- NOTE | 2019-05-28 07:28 | HP ---
PRIMARY CARE PHYSICIAN: Laila Torres NP CODE STATUS: Full code. TIME OF EVALUATION: 09:50 p.m. CHIEF COMPLAINT: Altered mental status. HISTORY OF PRESENT ILLNESS: A 74-year-old female patient with past medical history of diabetes, history of TIAs, hypertension, came to the hospital after having an episode the patient was found unresponsive with fixed eyes and not following commands, not communicating well. For that reason, she was brought into the hospital. By the time of my examination, the symptoms have started to improve; however, has taken a long time for that improvement. No clear triggers, no alleviating factors. As noted, the patient has been staring and there was a possibility for having seizures and on the previous admission's workup, the history has been gathered of points more to these facts, given the recurrence of the episodes, the patient basically gets unconscious and it takes hours for the patient to recover completely and go back to normal. REVIEW OF SYSTEMS: The review of systems during my examination was unable to obtain. The patient was confused, not able to answer coherent questions. As per family, no significant major complaints have been seen prior to this event. PAST MEDICAL HISTORY: Includes diabetes, hypertension, TIA. PAST SURGICAL HISTORY: History of appendectomy, hysterectomy, orthopedic surgery of the left shoulder, left arm, right shoulder x2, carpal tunnel of the left hand. PSYCHIATRIC HISTORY: No previous psychiatric history. FAMILY HISTORY: Reviewed, noncontributory for current presentation. SOCIAL HISTORY: No alcohol. No drugs. The patient is a former tobacco user. Smokes cigarettes. The patient quit smoking more than 10 years ago. KNOWN ALLERGIES: Penicillin and iodine. REPORTED MEDICATIONS: 1. Amlodipine. 2. Atorvastatin. 3. Losartan. 4. Aspirin. 5. Hydrochlorothiazide. 6. Levothyroxine. 7. Oxybutynin. 8. Pantoprazole. 9. Humalog. 10. Carvedilol. PHYSICAL EXAMINATION: VITAL SIGNS: On presentation, blood pressure 191/95 with heart rate 91, respiratory rate was , temperature 98.5. The blood pressure has been fluctuating with levels going from 217 to 184. GENERAL APPEARANCE: The patient is alert, disoriented, confused, follows some commands, but has very slow mentation. HEENT: Eyes, normal conjunctivae. Moist oral mucosa. Anicteric. No JVD. RESPIRATORY: Bilateral air entry. No rales or wheezes. Symmetric expansion. CARDIOVASCULAR: Normal rate, regular rhythm. No murmurs. No gallop. No edema. ABDOMEN: Soft. Normal bowel sounds. MUSCULOSKELETAL: Baseline range of motion and strength. SKIN: Warm, intact. No pallor. No rash. No redness. Capillary refill seems to be intact. NEUROLOGIC: The patient has slow mentation. Follows simple commands. No evidence of any new focal weakness at this point. PSYCHIATRIC: Unable to fully explore. The patient is not completely cooperative, but she seems to be relaxed, no distress. DIAGNOSTIC DATA: EKG was reviewed, shows normal sinus rhythm with a rate of 91, possible left heart enlargement. Stable CT of the head with evidence of ventriculomegaly and periventricular white matter hypoattenuation. Recommended clinical correlation to exclude evidence of normal-pressure hydrocephalus. This is a clinical diagnosis. LABORATORY DATA: Labs were reviewed. The patient has white count 16.7, hemoglobin 14.8, platelet count 200. Blood gas; the patient has a VBG with pH of 7.4, pCO2 39.9, PO2 36.6. Chemistry; sodium 139, potassium 4.1, chloride 99, carbon dioxide 27, anion gap 17, BUN 20, creatinine 1.56, it improved today to 1.25, has always been in the same range. GFR 41, glucose 335. Lactic acid 1.9, calcium 10.2. LFTs were negative. Alkaline phosphatase 118, beta natriuretic peptide 271, prolactin 5.8, lipase 14, and TSH 1.8. Urine was done. The patient has white count 4 to 6 with glucosuria and urine protein. Toxicology was done, was negative. ASSESSMENT AND PLAN: The patient will be placed in the hospital with following medical problems: 1. Acute change in mental status, likely acute metabolic encephalopathy. By the description, the patient seems to be having seizures and given the recurrence, this might be a cause of late onset epilepsy. Neurology will be consulted. We will follow recommendations. It seems that they have been working on this matter before and there is a reference from family that the Neurologist was thinking to put the patient on antiepileptic medications. We will defer to Neurology for medications to peak unless the patient has an acute seizure. Then, we will treat immediately. 2. Leukocytosis, unclear etiology. The patient has no evidence of sepsis. This could be secondary to seizure. 3. Chronic kidney disease with a GFR of 40, so this is going to be possibly stage x3. We will monitor and treat accordingly. We might need help from Nephrology if kidneys got worse. 4. Uncontrolled diabetes with blood sugar 335. Reconcile home medications. Place the patient on sliding scale for optimal control. 5. Deep venous thrombosis prophylaxis. 6. Acute encephalopathy secondary to possible seizure. Job ID: [id number] MTDD
[2019-05-28] MEDS: Insulin Glargine 30 UNITS in Pre-Filled Syringe 1 EACH SC SCH (08:44)
[2019-05-28] MEDS ORDERED: levETIRAcetam In NaCl (Iso-Os) 1,500 MG in Premix Bag 1 BAG IVPB SCH (08:45)
[2019-05-28] MEDS: Losartan 25 MG TAB PO SCH (08:46)
[2019-05-28] MEDS: Hydrochlorothiazide 25 MG TAB PO SCH (08:46)
[2019-05-28] MEDS: NIFEdipine XL 60 MG TAB PO SCH (08:47)
[2019-05-28] MEDS: Oxybutynin 5 MG TAB PO SCH ×2 (08:47→21:42)
[2019-05-28] MEDS: Carvedilol 6.25 MG TAB PO SCH ×2 (08:47→21:42)
[2019-05-28] MEDS: Enoxaparin Sodium 40 MG/0.4 ML SYRINGE SC SCH (08:47)
[2019-05-28] MEDS: Aspirin 325 mg Enteric Coated Tablet PO SCH (08:47)
[2019-05-28 08:54] LABS: Hemoglobin A1c 9.6 % (4.0-6.0)
[2019-05-28] MEDS ORDERED: INSULIN DEGLUDEC 30 UNIT SQ SCH (09:00)
[2019-05-28] MEDS ORDERED: Amlodipine 10 MG TAB PO SCH (09:00)
[2019-05-28 09:02] LABS: Troponin I 0.494 ng/mL (< 0.028)
--- NOTE | 2019-05-28 10:24 | PDOC.HOSPP ---
- Subjective Encounter Date: 05/28/19 Encounter Time: 10:21 Subjective: 74 y/o female with DM, HTN and CKD admitted with acute AMS of unresponsiveness and fixed eye stare associated with generalized weakness. Impression of seizure was made and was started on keppra by neurologist. Family also reported frequent falls. patient is currently somnolent after an epsiode of fixed stare with unresponsiveness. - Objective Vital Signs & Weight: Vital Signs (12 hours) Temp Pulse Resp BP BP BP Pulse Ox 05/28/19 08:47 89 170/95 H 05/28/19 07:10 97.7 F 89 20 170/95 H 100 05/28/19 04:39 205/110 H 05/28/19 04:00 97.7 F 98 20 205/110 H 96 05/28/19 01:23 98 05/28/19 00:53 98.9 F 98 18 209/95 H 97 05/27/19 23:00 98.0 F 101 H 16 178/97 H 98 Weight Weight 164 lb 0.383 oz I&O: 05/27/19 05/28/19 05/29/19 06:59 06:59 06:59 Intake Total 10 Output Total 40 Balance -30 Result Diagrams: 05/28/19 04:36 05/28/19 04:36 Additional Labs: Accuchecks 05/28/19 05/28/19 05/27/19 05:38 00:13 19:30 POC Glucose 275 H 280 H 308 H Hospitalist ROS - Medication Medications: Active Medications Generic Name Dose Route Start Last Admin Trade Name Freq PRN Reason Stop Dose Admin Aspirin 325 mg 05/28/19 09:00 05/28/19 08:47 Ecotrin PO 325 mg DAILY GENESIS Administration Carvedilol 6.25 mg 05/28/19 09:00 05/28/19 08:47 Coreg PO 6.25 mg BID GENESIS Administration Cholecalciferol 1,000 units 05/28/19 09:00 05/28/19 08:46 Vitamin D3 PO 1,000 units DAILY GENESIS Administration Clonidine 0.1 mg 05/28/19 04:29 05/28/19 04:39 Catapres PO 0.1 mg Q4H PRN Administration BP > 160/100 Enoxaparin Sodium 40 mg 05/28/19 09:00 05/28/19 08:47 Lovenox SC 40 mg 0900 GENESIS Administration Hydrochlorothiazide 25 mg 05/28/19 09:00 05/28/19 08:46 Hydrochlorothiazide PO 25 mg DAILY GENESIS Administration Insulin Glargine 30 units/ 0.3 mls @ 0 mls/hr 05/28/19 09:00 05/28/19 08:44 Miscellaneous Medication SC 0.3 mls QAM GENESIS Administration Levetiracetam 1,500 mg/ Device 100 mls @ 200 mls/hr 05/28/19 08:45 05/28/19 09:02 IVPB 05/28/19 11:00 100 mls NOW GENESIS Administration Levothyroxine Sodium 50 mcg 05/28/19 06:00 05/28/19 06:35 Synthroid PO Not Given 0600 GENESIS Losartan Potassium 100 mg 05/28/19 09:00 05/28/19 08:46 Cozaar PO 100 mg DAILY GENESIS Administration Nifedipine 60 mg 05/28/19 09:00 05/28/19 08:47 Procardia Xl PO 60 mg DAILY GENESIS Administration Oxybutynin Chloride 5 mg 05/28/19 09:00 05/28/19 08:47 Ditropan PO 5 mg BID GENESIS Administration Pantoprazole Sodium 40 mg 05/28/19 09:00 05/28/19 08:47 Protonix PO 40 mg DAILY GENESIS Administration Sodium Chloride 10 ml 05/28/19 09:00 05/28/19 08:48 Flush - Normal Saline IVF 10 ml Q12HR GENESIS Administration - Exam General - other findings: somnolent Eye: anicteric sclera ENT: normocephalic atraumatic Neck: no JVD Heart: RRR Heart - other findings: soft systolic murmur noted Respiratory - other findings: fair air entry bilaterally Gastrointestinal: soft, non-tender, non-distended, normal bowel sounds Extremities: no cyanosis, no edema Neurological: cranial nerve grossly intact Neurological - other findings: somnolent. tries to localize pain. moans with stimulation Hosp A/P (1) Acute encephalopathy Code(s): G93.40 - ENCEPHALOPATHY, UNSPECIFIED Status: Acute (2) Seizure disorder Code(s): G40.909 - EPILEPSY, UNSP, NOT INTRACTABLE, WITHOUT STATUS EPILEPTICUS Status: Acute (3) Uncontrolled diabetes mellitus Code(s): E11.65 - TYPE 2 DIABETES MELLITUS WITH HYPERGLYCEMIA Status: Acute (4) Atherosclerosis of aorta Code(s): I70.0 - ATHEROSCLEROSIS OF AORTA Status: Chronic (5) CKD (chronic kidney disease) stage 3, GFR 30-59 ml/min Code(s): N18.3 - CHRONIC KIDNEY DISEASE, STAGE 3 (MODERATE) Status: Chronic (6) GERD (gastroesophageal reflux disease) Code(s): K21.9 - GASTRO-ESOPHAGEAL REFLUX DISEASE WITHOUT ESOPHAGITIS Status: Chronic (7) HLD (hyperlipidemia) Code(s): E78.5 - HYPERLIPIDEMIA, UNSPECIFIED Status: Chronic (8) HTN (hypertension) Code(s): I10 - ESSENTIAL (PRIMARY) HYPERTENSION Status: Chronic (9) Hypothyroidism Code(s): E03.9 - HYPOTHYROIDISM, UNSPECIFIED Status: Chronic (10) Type [address] elevation Code(s): I21.A1 - MYOCARDIAL INFARCTION TYPE 2 Status: Resolved - Plan Start nifedipine to get adequate BP control. Antiepileptic as per Neurology Get Echo and hb a1c start sliding scale insulin Get MRI brain PT/OT/highway safety engineer eval and treat. care plan discussed with patients daughter.
[2019-05-28] MEDS: HumaLOG 300 UNITS/3 ML VIAL SC PRN ×2 (10:51→17:05)
--- NOTE | 2019-05-28 11:01 | CON ---
DATE OF CONSULTATION: IMPRESSION: Dementia with acute changes of diminished verbal output of possibly secondary to subclinical seizures. PLAN: 1. Keppra 1500 mg IV followed by 500 mg twice a day. 2. Follow clinical course. HISTORY OF PRESENT ILLNESS: Ms. Stanford is a 74-year-old black female with a past history of dementia, diabetes, hypertension, and questionably TIA. She lives at home with her family. Normally, she can carry on a conversation. Her family reports that she has not been communicating with them well. She requires assistance and daily activities including monitoring her bathing or dressing and other routine activities. She has never had anything that was a convulsion, but there has been some suspicion that she has had some transient changes that are indicative of subclinical seizures. She is brought into the emergency room last night due to this change in her ability to communicate. Her CT scan of the brain was unremarkable. Laboratory studies are also unremarkable other than elevated white count of 16.7. She was markedly hypertensive, but this has improved from a diastolic of 110 down to 95. She has been afebrile. PAST MEDICAL HISTORY: As listed above. ALLERGIES: IODINE, PENICILLIN. SOCIAL HISTORY: No tobacco or alcohol. FAMILY HISTORY: Noncontributory. REVIEW OF SYSTEMS: Not obtainable due to her inability to cooperate. MEDICATIONS: List was reviewed. PHYSICAL EXAMINATION: GENERAL: She is a well-nourished elderly woman, sitting up in bed, in no acute distress. VITAL SIGNS: Blood pressure 170/95, pulse 89, respirations 20, temperature 97.7. HEENT: Pupils equal. Conjunctivae clear. Oropharynx clear. Cranium, normocephalic and atraumatic. NECK: No lymphadenopathy or tenderness. EXTREMITIES: No cyanosis, clubbing, or edema. NEUROLOGIC: She appears to be awake. She followed simple commands without any difficulty. She would occasionally verbalize in a very low volume and has minimal output otherwise. Cranial nerves 2 through 12 are intact. Motor exam showed very good knitting inspector strength and normal tone bilaterally. Sensation is grossly intact bilaterally to light touch. No abnormal movements are seen. Gait is not tested. SUMMARY: This is a 74-year-old woman with a history of dementia. She comes in with diminished verbal output of uncertain etiology. I would go ahead and try her on a dose of Keppra and see if she responds. Job ID: [id number]
[2019-05-28] MEDS ORDERED: Gadobenate Dimeglumine 529 MG/1 ML (20ML VIAL) ONE (13:11)
--- NOTE | 2019-05-28 14:38 | MRI ---
MRI Brain W WO Con: 05/28/2019 10:19 AM CLINICAL HISTORY: Seizure, acute encephalopathy. COMPARISON: Head CT previous day FINDINGS: Extra axial spaces: Normal in size and morphology for the patient's age. Acute infarction: None. Ventricular system: Ventricular system remains enlarged. Basal cisterns: Normal. Cerebral parenchyma: Periventricular white matter signal alteration is present. Midline shift: None. Cerebellum: Normal. Brainstem: Normal. Paranasal sinuses:Clear Intraaxial Enhancement: Postcontrast imaging is limited by motion. No definite pathologic intra-axial enhancement identified IMPRESSION:Redemonstration of enlargement of the ventricular system, out of proportion size of cerebr al sulci, with periventricular signal alteration. This could relate to transependymal CSF migration and/or gliosis. Recommend clinical correlation to exclude normal pressure hydrocephalus.
[2019-05-28 16:17] LABS: Creatinine, Urine 156.92 mg/dL (47-110)
[2019-05-28] MEDS: Atorvastatin Calcium 40 MG TAB PO SCH (21:41)
[2019-05-28] MEDS: levETIRAcetam 500 MG TAB PO SCH (21:42)
[2019-05-29 04:52] LABS: #Basophils 0.1 thou/uL (0.0-0.2); #Eosinphils 0.4 thou/uL (0.0-0.7); #Lymphocytes 3.8 thou/uL (1.20-3.40); %Basophils 0.9 % (0.0-1.0); %Eosinophils 3.9 % (0.0-10.0); %Lymphocytes 33.6 % (21.0-51.0); %Monocytes 8.4 % (0.0-10.0); %Neutrophils 53.1 % (42.0-75.0); Hemoglobin 12.7 g/dL (12.0-16.0); Mean Corpuscular HGB CONC 33.5 g/dL (32.0-36.0); Mean Corpuscular Hemoglobin 28.7 pg (27.0-31.0); Mean Corpuscular Volume 85.5 fL (78.0-98.0); Platelet Count 176 thou/uL (130-400); RBC Distribution Width 13.9 % (11.5-14.5); Red Blood Cell (RBC) Count 4.45 mill/uL (4.20-5.40); White Blood Cell (WBC) Count 11.3 thou/uL (4.8-10.8)
[2019-05-29 05:10] LABS: Albumin 3.3 g/dL (3.4-4.8); Anion Gap 11 mmol/L (10-20); BUN (Urea Nitrogen) 27 mg/dL (9.8-20.1); BUN/Creatinine Ratio 18.75; Calc. Creatinine Clearance 41 mL/min (70-130); Calcium 9.2 mg/dL (7.8-10.44); Carbon Dioxide 28 mmol/L (23-31); Chloride 103 mmol/L (98-107); Estimated GFR-MDRD 43; Glucose 167 mg/dL (83-110); Phosphorus 2.8 mg/dL (2.3-4.7); Potassium 3.2 mmol/L (3.5-5.1); Sodium 139 mmol/L (136-145)
[2019-05-29] MEDS: Levothyroxine Sodium 50 MCG TAB PO SCH (06:08)
[2019-05-29] MEDS ORDERED: Potassium Chloride 20 MEQ TAB PO SCH (07:15)
--- NOTE | 2019-05-29 08:59 | PDOC.HOSPP ---
- Subjective Encounter Date: 05/29/19 Encounter Time: 08:57 Subjective: 74 y/o female with DM, HTN and CKD admitted with acute AMS of unresponsiveness and fixed eye stare associated with generalized weakness. Impression of seizure was made and was started on keppra by neurologist. Family also reported frequent falls and she also carries diagnosis of dementia. Patient is more awake today and conversational but could not tell me much about events leading to hospitalization - Objective Vital Signs & Weight: Vital Signs (12 hours) Temp Pulse Resp BP Pulse Ox 05/29/19 08:00 97.7 F 63 16 141/70 H 98 05/29/19 04:00 97.1 F L 68 20 152/73 H 96 05/29/19 00:00 97.7 F 64 20 131/74 94 L Weight Weight 164 lb 0.383 oz I&O: 05/28/19 05/29/19 05/30/19 06:59 06:59 06:59 Intake Total 10 530 Output Total 40 805 Balance -30 -275 Result Diagrams: 05/29/19 04:06 05/29/19 04:06 Additional Labs: Accuchecks 05/29/19 05/28/19 05/28/19 06:05 19:52 16:50 POC Glucose 134 H 248 H 247 H 05/28/19 10:49 POC Glucose 403 H Hospitalist ROS - Medication Medications: Active Medications Generic Name Dose Route Start Last Admin Trade Name Freq PRN Reason Stop Dose Admin Aspirin 325 mg 05/28/19 09:00 05/28/19 08:47 Ecotrin PO 325 mg DAILY GENESIS Administration Atorvastatin Calcium 40 mg 05/28/19 21:00 05/28/19 21:41 Lipitor PO Not Given HS GENESIS Carvedilol 6.25 mg 05/28/19 09:00 05/28/19 21:42 Coreg PO Not Given BID GENESIS Cholecalciferol 1,000 units 05/28/19 09:00 05/28/19 08:46 Vitamin D3 PO 1,000 units DAILY GENESIS Administration Clonidine 0.1 mg 05/28/19 04:29 05/28/19 04:39 Catapres PO 0.1 mg Q4H PRN Administration BP > 160/100 Enoxaparin Sodium 40 mg 05/28/19 09:00 05/28/19 08:47 Lovenox SC 40 mg 0900 GENESIS Administration Hydrochlorothiazide 25 mg 05/28/19 09:00 05/28/19 08:46 Hydrochlorothiazide PO 25 mg DAILY GENESIS Administration Insulin Glargine 30 units/ 0.3 mls @ 0 mls/hr 05/28/19 09:00 05/28/19 08:44 Miscellaneous Medication SC 0.3 mls QAM GENESIS Administration Levetiracetam 500 mg/ Device 100 mls @ 200 mls/hr 05/28/19 21:00 05/28/19 21: 42 IVPB 100 mls BID GENESIS Administration Insulin Human Lispro 0 units 05/28/19 10:17 05/28/19 17:05 Humalog SC 3 unit .MILD SLIDING SCALE PRN Administration Mild Correctional Scale Levetiracetam 500 mg 05/28/19 21:00 05/28/19 21:42 Keppra PO Not Given BID GENESIS Levothyroxine Sodium 50 mcg 05/28/19 06:00 05/29/19 06:08 Synthroid PO Not Given 0600 [facility] Losartan Potassium 100 mg 05/28/19 09:00 05/28/19 08:46 Cozaar PO 100 mg DAILY GENESIS Administration Nifedipine 60 mg 05/28/19 09:00 05/28/19 08:47 Procardia Xl PO 60 mg DAILY GENESIS Administration Oxybutynin Chloride 5 mg 05/28/19 09:00 05/28/19 21:42 Ditropan PO Not Given BID GENESIS Pantoprazole Sodium 40 mg 05/28/19 09:00 05/28/19 08:47 Protonix PO 40 mg DAILY GENESIS Administration Sodium Chloride 10 ml 05/28/19 09:00 05/28/19 21:43 Flush - Normal Saline IVF 10 ml Q12HR GENESIS Administration - Exam General Appearance: awake alert Eye: anicteric sclera ENT: normocephalic atraumatic Neck: supple, symmetric, no JVD Heart: RRR Respiratory: no wheezes, no rales, no ronchi, normal chest expansion, no tachypnea Gastrointestinal: soft, non-tender, non-distended, normal bowel sounds Extremities: no edema Neurological: cranial nerve grossly intact, no focal deficits Neurological - other findings: memory lapses noted Psychiatric: A&O x 3 Hosp A/P (1) Normal pressure hydrocephalus Code(s): G91.2 - (IDIOPATHIC) NORMAL PRESSURE HYDROCEPHALUS Status: Acute (2) Acute metabolic encephalopathy Code(s): G93.41 - METABOLIC ENCEPHALOPATHY Status: Acute (3) Seizure disorder Code(s): G40.909 - EPILEPSY, UNSP, NOT INTRACTABLE, WITHOUT STATUS EPILEPTICUS Status: Acute (4) Uncontrolled diabetes mellitus Code(s): E11.65 - TYPE 2 DIABETES MELLITUS WITH HYPERGLYCEMIA Status: Acute (5) Atherosclerosis of aorta Code(s): I70.0 - ATHEROSCLEROSIS OF AORTA Status: Chronic (6) CKD (chronic kidney disease) stage 3, GFR 30-59 ml/min Code(s): N18.3 - CHRONIC KIDNEY DISEASE, STAGE 3 (MODERATE) Status: Chronic (7) GERD (gastroesophageal reflux disease) Code(s): K21.9 - GASTRO-ESOPHAGEAL REFLUX DISEASE WITHOUT ESOPHAGITIS Status: Chronic (8) HLD (hyperlipidemia) Code(s): E78.5 - HYPERLIPIDEMIA, UNSPECIFIED Status: Chronic (9) HTN (hypertension) Code(s): I10 - ESSENTIAL (PRIMARY) HYPERTENSION Status: Chronic (10) Hypothyroidism Code(s): E03.9 - HYPOTHYROIDISM, UNSPECIFIED Status: Chronic (11) Type [address] elevation Code(s): I21.A1 - MYOCARDIAL INFARCTION TYPE 2 Status: Resolved (12) Hypokalemia Code(s): E87.6 - HYPOKALEMIA Status: Resolved (13) Urinary retention Code(s): R33.9 - RETENTION OF URINE, UNSPECIFIED Status: Acute (14) Proteinuria Code(s): R80.9 - PROTEINURIA, UNSPECIFIED Status: Acute - Plan Replete serum potassium with potassium chloride. get serum magnesium and replete if indicated. Continue nifedipine and losartan to get adequate BP control. Antiepileptic as per Neurology Continue insulin therapy D/W Neurology about suspected NPH PT/OT/furnace puncher eval and treat. Diet as tolerated. Get 24 hour urine collection for protein Start flomax.
[2019-05-29] MEDS: Sodium Chloride 0.9% 1,000 ML IV SCH ×2 (09:51→20:28)
[2019-05-29] MEDS: Losartan 25 MG TAB PO SCH (09:56)
[2019-05-29] MEDS: Aspirin 325 mg Enteric Coated Tablet PO SCH (09:56)
[2019-05-29] MEDS: Hydrochlorothiazide 25 MG TAB PO SCH (09:57)
[2019-05-29] MEDS: NIFEdipine XL 60 MG TAB PO SCH (09:58)
[2019-05-29] MEDS: Carvedilol 6.25 MG TAB PO SCH ×2 (09:58→20:28)
[2019-05-29] MEDS: levETIRAcetam 500 MG TAB PO SCH ×2 (09:59→20:29)
[2019-05-29] MEDS: Oxybutynin 5 MG TAB PO SCH ×2 (09:59→20:29)
[2019-05-29] MEDS: Insulin Glargine 30 UNITS in Pre-Filled Syringe 1 EACH SC SCH (10:00)
[2019-05-29] MEDS: Enoxaparin Sodium 40 MG/0.4 ML SYRINGE SC SCH (10:01)
[2019-05-29] MEDS: HumaLOG 300 UNITS/3 ML VIAL SC PRN ×3 (12:06→22:18)
--- NOTE | 2019-05-29 13:00 | PRG ---
DATE OF SERVICE: 05/29/2019 IMPRESSION: No reported problems occurred overnight. The patient's vital signs are stable. She is afebrile. I was able to wake her and get her to communicate with me. She follows commands today. Her speech is very low in volume. Her exam is nonfocal. I reviewed her MRI of the brain, which showed some ventricular enlargement and extensive periventricular transependymal fluid versus gliosis. She has not been out of bed since she was admitted, going to have physical therapy to take a look at her and assess her gait. The question of normal-pressure hydrocephalus is a difficult one. Given the degree of cognitive impairment, I would not think her to be a very good candidate. The risk associated with shunting or a reasonably high with a chance of subdural hemorrhage in a occurring frequently. She seems to have responded to the Keppra; therefore, I would continue her current dose and monitor her course. Job ID: [id number]
[2019-05-29] MEDS: Acetaminophen 325 MG TAB PO PRN (18:03)
[2019-05-29] MEDS: Tamsulosin HCl 0.4 MG CAP PO SCH (20:28)
[2019-05-29] MEDS: Atorvastatin Calcium 40 MG TAB PO SCH (20:28)
[2019-05-29] MEDS: levETIRAcetam 500 mg/5 ml Oral Solution PO SCH (21:04)
[2019-05-30] MEDS: Levothyroxine Sodium 50 MCG TAB PO SCH (05:45)
[2019-05-30] MEDS: Losartan 25 MG TAB PO SCH (08:38)
[2019-05-30] MEDS: Enoxaparin Sodium 40 MG/0.4 ML SYRINGE SC SCH (08:38)
[2019-05-30] MEDS: Aspirin 325 mg Enteric Coated Tablet PO SCH (08:39)
[2019-05-30] MEDS: Carvedilol 6.25 MG TAB PO SCH ×2 (08:39→21:14)
[2019-05-30] MEDS: Hydrochlorothiazide 25 MG TAB PO SCH (08:39)
[2019-05-30] MEDS: Oxybutynin 5 MG TAB PO SCH ×2 (08:39→21:14)
[2019-05-30] MEDS: NIFEdipine XL 60 MG TAB PO SCH (08:39)
[2019-05-30] MEDS: Insulin Glargine 30 UNITS in Pre-Filled Syringe 1 EACH SC SCH (09:29)
[2019-05-30] MEDS: levETIRAcetam 500 mg/5 ml Oral Solution PO SCH ×2 (09:29→21:14)
[2019-05-30] MEDS: Sodium Chloride 0.9% 1,000 ML IV SCH (09:31)
[2019-05-30] MEDS: HumaLOG 300 UNITS/3 ML VIAL SC PRN (11:16)
--- NOTE | 2019-05-30 12:30 | PDOC.HOSPP ---
- Subjective Encounter Date: 05/30/19 Encounter Time: 12:30 Subjective: f/u for AMS, ? seizure, dementia, falls. More awake per nursing but confused on events leading to hospitalization. Remains on Keppra and EEG planned for today. - Objective Vital Signs & Weight: Vital Signs (12 hours) Temp Pulse Resp BP Pulse Ox 05/30/19 11:38 98.4 F 79 17 110/53 L 93 L 05/30/19 08:39 71 05/30/19 08:00 94 L 05/30/19 07:49 98.2 F 71 16 162/73 H 94 L 05/30/19 04:07 98.1 F 65 20 149/75 H 95 05/30/19 00:30 97.9 F 61 15 147/79 H 94 L Weight Weight 164 lb 0.383 oz I&O: 05/29/19 05/30/19 05/31/19 06:59 06:59 06:59 Intake Total 530 100 Output Total 805 1150 Balance -275 -1050 Result Diagrams: 05/29/19 04:06 05/29/19 04:06 Additional Labs: Accuchecks 05/30/19 05/30/19 05/29/19 11:01 05:45 21:27 POC Glucose 229 H 110 246 H 05/29/19 17:23 POC Glucose 234 H Microbiology 05/27/19 20:03 Venous blood - Right Hand Blood Culture - Preliminary NO GROWTH AT 48 HOURS 05/27/19 19:59 Venous blood - Right Arm Blood Culture - Preliminary NO GROWTH AT 48 HOURS 05/27/19 19:40 Urine Straight Catheter Urine Culture - Preliminary Yeast species Radiology Reviewed by me: Yes (Echo - EF 50-55%, diast dysfxn) EKG Reviewed by me: Yes (Tele - SR) Hospitalist ROS - Medication Medications: Active Medications Generic Name Dose Route Start Last Admin Trade Name Freq PRN Reason Stop Dose Admin Acetaminophen 650 mg 05/28/19 01:14 05/29/19 18:03 Tylenol PO 650 mg Q4H PRN Administration Headache/Fever/Mild Pain (1-3) Aspirin 325 mg 05/28/19 09:00 05/30/19 08:39 Ecotrin PO 325 mg DAILY GENESIS Administration Atorvastatin Calcium 40 mg 05/28/19 21:00 05/29/19 20:28 Lipitor PO 40 mg HS GENESIS Administration Carvedilol 6.25 mg 05/28/19 09:00 05/30/19 08:39 Coreg PO 6.25 mg BID GENESIS Administration Cholecalciferol 1,000 units 05/28/19 09:00 05/30/19 08:39 Vitamin D3 PO 1,000 units DAILY GENESIS Administration Clonidine 0.1 mg 05/28/19 04:29 05/28/19 04:39 Catapres PO 0.1 mg Q4H PRN Administration BP > 160/100 Enoxaparin Sodium 40 mg 05/28/19 09:00 05/30/19 08:38 Lovenox SC 40 mg 0900 GENESIS Administration Hydrochlorothiazide 25 mg 05/28/19 09:00 05/30/19 08:39 Hydrochlorothiazide PO 25 mg DAILY GENESIS Administration Insulin Glargine 30 units/ 0.3 mls @ 0 mls/hr 05/28/19 09:00 05/30/19 09:29 Miscellaneous Medication SC 0.3 mls QAM GENESIS Administration Sodium Chloride 1,000 mls @ 75 mls/hr 05/29/19 07:00 05/30/19 09:31 Normal Saline 0.9% IV 1,000 mls .[id number] GENESIS Administration Insulin Human Lispro 0 units 05/28/19 10:17 05/30/19 11:16 Humalog SC 3 unit .MILD SLIDING SCALE PRN Administration Mild Correctional Scale Levetiracetam 500 mg 05/29/19 21:00 05/30/19 09:29 Keppra Oral Solution PO 500 mg BID GENESIS Administration Levothyroxine Sodium 50 mcg 05/28/19 06:00 05/30/19 05:45 Synthroid PO 50 mcg 0600 GENESIS Administration Losartan Potassium 100 mg 05/28/19 09:00 05/30/19 08:38 Cozaar PO 100 mg DAILY GENESIS Administration Nifedipine 60 mg 05/28/19 09:00 05/30/19 08:39 Procardia Xl PO 60 mg DAILY GENESIS Administration Ondansetron HCl 4 mg 05/28/19 01:14 05/29/19 15:01 Zofran IVP 4 mg Q6H PRN Administration Nausea/Vomiting Oxybutynin Chloride 5 mg 05/28/19 09:00 05/30/19 08:39 Ditropan PO 5 mg BID GENESIS Administration Pantoprazole Sodium 40 mg 05/28/19 09:00 05/30/19 08:39 Protonix PO 40 mg DAILY GENESIS Administration Sodium Chloride 10 ml 05/28/19 09:00 05/30/19 09:29 Flush - Normal Saline IVF Not Given Q12HR GENESIS Tamsulosin HCl 0.4 mg 05/29/19 21:00 05/29/19 20:28 Flomax PO 0.4 mg HS GENESIS Administration - Exam General Appearance: NAD General - other findings: opens eyes to name, verbalizes a few words Eye: PERRL, anicteric sclera ENT: normocephalic atraumatic, no oropharyngeal lesions Neck: supple, symmetric, no JVD, no thyromegaly, no lymphadenopathy Heart: RRR, no murmur, no gallops, no rubs, normal peripheral pulses Respiratory: CTAB, no wheezes, no rales, no ronchi, normal chest expansion Gastrointestinal: soft, non-tender, non-distended, normal bowel sounds Extremities: no cyanosis, no clubbing, no edema Skin: normal turgor, no lesions Neurological - other findings: bradykinesia Musculoskeletal: normal tone, generalized weakness Psychiatric: oriented to person, oriented to place Hosp A/P (1) Acute metabolic encephalopathy Code(s): G93.41 - METABOLIC ENCEPHALOPATHY Status: Acute Plan: Likely multifactorial given potential seizure activity, dementia and metabolic process (2) Normal pressure hydrocephalus Code(s): G91.2 - (IDIOPATHIC) NORMAL PRESSURE HYDROCEPHALUS Status: Chronic Plan: Suspected, continue to monitor clinically, ? shunt given co-morbid status (3) Seizure disorder Code(s): G40.909 - EPILEPSY, UNSP, NOT INTRACTABLE, WITHOUT STATUS EPILEPTICUS Status: Acute Plan: Continue Keppra 500mg BID, EEG planned today (4) CKD (chronic kidney disease) stage 3, GFR 30-59 ml/min Code(s): N18.3 - CHRONIC KIDNEY DISEASE, STAGE 3 (MODERATE) Status: Chronic Plan: Stable, avoid nephrotoxic meds and limit contrast (5) Dementia Code(s): F03.90 - UNSPECIFIED DEMENTIA WITHOUT BEHAVIORAL DISTURBANCE Status: Chronic Plan: Continue supportive mgmt, CM for SNF options and medical supervision (6) Muscular deconditioning Code(s): R29.898 - OTH SYMPTOMS AND SIGNS INVOLVING THE MUSCULOSKELETAL SYSTEM Status: Chronic Plan: PT/OT for functional assessment, fall risk precautions, SNF options - Plan PT/OT, psych social worker, out of bed/ambulate, DVT proph w/SCDs Stable currently EEG planned today Continue Keppra 500mg BID Add Diflucan 100mg daily PT for mobilization CM consult for SNF options Continue IVF's another 24h then d/c AM lab: BMP
[2019-05-30] MEDS: Fluconazole 100 MG TAB PO SCH (12:57)
[2019-05-30 15:16] LABS: Urine Total Volume 1875 mL (250-2400)
[2019-05-30 15:51] LABS: 24 Hr Creatinine 1039.13 mg/24 hr (710-1650); Creatinine, Urine 55.42 mg/dL (47-110)
[2019-05-30 15:52] LABS: Protein - 24 Hr 431 mg/24 hr (Less than 300); Protein, Urine 23 mg/dL (1-14)
[2019-05-30 15:53] LABS: Microalbumin/24 Hr 20.63 mg/24 hr (Less than 30)
[2019-05-30] MEDS: Tamsulosin HCl 0.4 MG CAP PO SCH (21:14)
[2019-05-30] MEDS: Atorvastatin Calcium 40 MG TAB PO SCH (21:14)
[2019-05-31] MEDS: Sodium Chloride 0.9% 1,000 ML IV SCH ×3 (01:10→16:01)
[2019-05-31] MEDS: Levothyroxine Sodium 50 MCG TAB PO SCH (05:30)
[2019-05-31 06:11] LABS: Anion Gap 15 mmol/L (10-20); BUN (Urea Nitrogen) 13 mg/dL (9.8-20.1); Calc. Creatinine Clearance 49 mL/min (70-130); Calcium 9.2 mg/dL (7.8-10.44); Carbon Dioxide 26 mmol/L (23-31); Chloride 99 mmol/L (98-107); Estimated GFR-MDRD 53; Glucose 296 mg/dL (83-110); Potassium 3.8 mmol/L (3.5-5.1); Sodium 136 mmol/L (136-145)
[2019-05-31] MEDS: HumaLOG 300 UNITS/3 ML VIAL SC PRN ×3 (06:38→17:37)
[2019-05-31] MEDS: Aspirin 325 mg Enteric Coated Tablet PO SCH (09:00)
[2019-05-31] MEDS: Enoxaparin Sodium 40 MG/0.4 ML SYRINGE SC SCH (09:00)
[2019-05-31] MEDS: NIFEdipine XL 60 MG TAB PO SCH (09:00)
[2019-05-31] MEDS: Carvedilol 6.25 MG TAB PO SCH ×2 (09:00→20:54)
[2019-05-31] MEDS: Hydrochlorothiazide 25 MG TAB PO SCH (09:00)
[2019-05-31] MEDS: levETIRAcetam 500 mg/5 ml Oral Solution PO SCH ×2 (09:01→20:54)
[2019-05-31] MEDS: Losartan 25 MG TAB PO SCH (09:01)
[2019-05-31] MEDS: Oxybutynin 5 MG TAB PO SCH ×2 (09:01→20:54)
[2019-05-31] MEDS: Insulin Glargine 30 UNITS in Pre-Filled Syringe 1 EACH SC SCH (09:12)
--- NOTE | 2019-05-31 10:03 | EEG ---
Referring Physician: LIZBETH EEG # [id number] TEST TYPE: ROUTINE PORTABLE INPATIENT REPORT: AN EEG USING THE INTERNATIONAL TEN-TWENTY SYSTEM OF ELECTRODE PLACEMENT WAS PERFORMED. The waking background rhythm is an 8.5 hertz alpha frequency. The patient became somewhat drowsy, but no sleep was seen. Photic stimulation was unremarkable. No epileptiform features were present. IMPRESSION: THIS IS A NORMAL AWAKE EEG. Photography Sales Associate: BELKIS Port Captain: MAHAMED GRAVES
[2019-05-31] MEDS: Fluconazole 100 MG TAB PO SCH (14:07)
--- NOTE | 2019-05-31 15:30 | PDOC.HOSPP ---
- Subjective Encounter Date: 05/31/19 Encounter Time: 15:25 Subjective: f/u AMS, dementia, deconditioned, falls, ? seizure activity and poor po intake. Plan for SNF transfer when stable but options pending. - Objective Vital Signs & Weight: Vital Signs (12 hours) Temp Pulse Resp BP Pulse Ox 05/31/19 12:09 98.8 F 81 16 114/54 L 95 05/31/19 12:08 132/62 05/31/19 11:00 81 114/54 L 05/31/19 10:00 81 144/67 H 05/31/19 09:00 76 05/31/19 08:59 96 05/31/19 08:00 98.4 F 76 20 167/93 H 96 05/31/19 04:00 98.7 F 78 20 146/77 H 93 L Weight Weight 164 lb 0.383 oz I&O: 05/30/19 05/31/19 06/01/19 06:59 06:59 06:59 Intake Total 100 500 150 Output Total 1150 3400 700 Balance -1050 -2900 -550 Result Diagrams: 05/29/19 04:06 05/31/19 05:10 Additional Labs: Accuchecks 05/31/19 05/31/19 05/30/19 11:01 06:04 20:14 POC Glucose 236 H 263 H 118 H 05/30/19 16:45 POC Glucose 141 H Microbiology 05/27/19 20:03 Venous blood - Right Hand Blood Culture - Preliminary NO GROWTH AT 48 HOURS 05/27/19 19:59 Venous blood - Right Arm Blood Culture - Preliminary NO GROWTH AT 48 HOURS 05/27/19 19:40 Urine Straight Catheter Urine Culture - Preliminary Yeast species Radiology Reviewed by me: Yes (EEG - negative ) EKG Reviewed by me: Yes (Tele - SR) Hospitalist ROS - Medication Medications: Active Medications Generic Name Dose Route Start Last Admin Trade Name Freq PRN Reason Stop Dose Admin Acetaminophen 650 mg 05/28/19 01:14 05/29/19 18:03 Tylenol PO 650 mg Q4H PRN Administration Headache/Fever/Mild Pain (1-3) Aspirin 325 mg 05/28/19 09:00 05/31/19 09:00 Ecotrin PO 325 mg DAILY GENESIS Administration Atorvastatin Calcium 40 mg 05/28/19 21:00 05/30/19 21:14 Lipitor PO 40 mg HS GENESIS Administration Carvedilol 6.25 mg 05/28/19 09:00 05/31/19 09:00 Coreg PO 6.25 mg BID GENESIS Administration Cholecalciferol 1,000 units 05/28/19 09:00 05/31/19 09:00 Vitamin D3 PO 1,000 units DAILY GENESIS Administration Clonidine 0.1 mg 05/28/19 04:29 05/28/19 04:39 Catapres PO 0.1 mg Q4H PRN Administration BP > 160/100 Enoxaparin Sodium 40 mg 05/28/19 09:00 05/31/19 09:00 Lovenox SC 40 mg 0900 GENESIS Administration Hydrochlorothiazide 25 mg 05/28/19 09:00 05/31/19 09:00 Hydrochlorothiazide PO 25 mg DAILY GENESIS Administration Insulin Glargine 30 units/ 0.3 mls @ 0 mls/hr 05/28/19 09:00 05/31/19 09:12 Miscellaneous Medication SC 0.3 mls QAM GENESIS Administration Sodium Chloride 1,000 mls @ 75 mls/hr 05/29/19 07:00 05/31/19 14:46 Normal Saline 0.9% IV 1,000 mls .[id number] GENESIS Administration Insulin Human Lispro 0 units 05/28/19 10:17 05/31/19 11:43 Humalog SC 3 unit .MILD SLIDING SCALE PRN Administration Mild Correctional Scale Levetiracetam 500 mg 05/29/19 21:00 05/31/19 09:01 Keppra Oral Solution PO 500 mg BID GENESIS Administration Levothyroxine Sodium 50 mcg 05/28/19 06:00 05/31/19 05:30 Synthroid PO 50 mcg 0600 GENESIS Administration Losartan Potassium 100 mg 05/28/19 09:00 05/31/19 09:01 Cozaar PO 100 mg DAILY GENESIS Administration Nifedipine 60 mg 05/28/19 09:00 05/31/19 09:00 Procardia Xl PO 60 mg DAILY GENESIS Administration Ondansetron HCl 4 mg 05/28/19 01:14 05/29/19 15:01 Zofran IVP 4 mg Q6H PRN Administration Nausea/Vomiting Oxybutynin Chloride 5 mg 05/28/19 09:00 05/31/19 09:01 Ditropan PO 5 mg BID GENESIS Administration Pantoprazole Sodium 40 mg 05/28/19 09:00 05/31/19 09:00 Protonix PO 40 mg DAILY GENESIS Administration Sodium Chloride 10 ml 05/28/19 09:00 05/31/19 09:02 Flush - Normal Saline IVF Not Given Q12HR GENESIS Tamsulosin HCl 0.4 mg 05/29/19 21:00 05/30/19 21:14 Flomax PO 0.4 mg HS GENESIS Administration - Exam General Appearance: NAD, awake alert Eye: PERRL, anicteric sclera ENT: normocephalic atraumatic, no oropharyngeal lesions Neck: supple, symmetric, no JVD, no thyromegaly Heart: RRR, no gallops, no rubs, normal peripheral pulses Respiratory: CTAB, no wheezes, no rales, no ronchi Gastrointestinal: soft, non-tender, non-distended, normal bowel sounds, no palpable masses Extremities: no cyanosis, no clubbing, no edema Skin: normal turgor, no lesions Neurological - other findings: bradykinesia Musculoskeletal: normal tone, generalized weakness Psychiatric: oriented to person Hosp A/P (1) Acute metabolic encephalopathy Code(s): G93.41 - METABOLIC ENCEPHALOPATHY Status: Acute Plan: Mild improvement, multifactorial, supportive mgmt (2) Normal pressure hydrocephalus Code(s): G91.2 - (IDIOPATHIC) NORMAL PRESSURE HYDROCEPHALUS Status: Chronic Plan: Conservative mgmt given co-morbid status (3) Seizure disorder Code(s): G40.909 - EPILEPSY, UNSP, NOT INTRACTABLE, WITHOUT STATUS EPILEPTICUS Status: Acute Plan: Continue Keppra 500mg BID, EEG negative currently (4) CKD (chronic kidney disease) stage 3, GFR 30-59 ml/min Code(s): N18.3 - CHRONIC KIDNEY DISEASE, STAGE 3 (MODERATE) Status: Chronic (5) Dementia Code(s): F03.90 - UNSPECIFIED DEMENTIA WITHOUT BEHAVIORAL DISTURBANCE Status: Chronic Plan: Likely advanced (6) Muscular deconditioning Code(s): R29.898 - OTH SYMPTOMS AND SIGNS INVOLVING THE MUSCULOSKELETAL SYSTEM Status: Chronic Plan: Fall risk precautions, SNF options pending (7) Candiduria Code(s): B37.49 - OTHER UROGENITAL CANDIDIASIS Status: Acute Plan: Start Micafungin 100mg IV daily - Plan continue antibiotics, PT/OT, social worker masters, DVT proph w/SCDs Stable currently EEG negative currently Continue Keppra 500mg BID Start Micafungin 100mg IV daily PT for mobilization CM consult for SNF options Continue IVF's another 24h
[2019-05-31] MEDS: Micafungin 100 MG in Sodium Chloride 0.9% 100 ML IVPB SCH (16:00)
[2019-05-31] MEDS: Atorvastatin Calcium 40 MG TAB PO SCH (20:54)
[2019-05-31] MEDS: Tamsulosin HCl 0.4 MG CAP PO SCH (20:54)
[2019-06-01] MEDS: cloNIDine 0.1 MG TAB PO PRN (01:01)
[2019-06-01] MEDS: Levothyroxine Sodium 50 MCG TAB PO SCH (05:41)
[2019-06-01] MEDS: Aspirin 325 mg Enteric Coated Tablet PO SCH (08:18)
[2019-06-01] MEDS: Carvedilol 6.25 MG TAB PO SCH ×2 (08:18→21:24)
[2019-06-01] MEDS: Acetaminophen 325 MG TAB PO PRN ×2 (08:19→18:10)
[2019-06-01] MEDS: Losartan 25 MG TAB PO SCH (08:19)
[2019-06-01] MEDS: Hydrochlorothiazide 25 MG TAB PO SCH (08:19)
[2019-06-01] MEDS: Oxybutynin 5 MG TAB PO SCH ×2 (08:19→21:24)
[2019-06-01] MEDS: NIFEdipine XL 60 MG TAB PO SCH (08:19)
[2019-06-01] MEDS: levETIRAcetam 500 mg/5 ml Oral Solution PO SCH ×2 (08:20→21:24)
[2019-06-01] MEDS: Enoxaparin Sodium 40 MG/0.4 ML SYRINGE SC SCH (08:20)
[2019-06-01] MEDS: Insulin Glargine 30 UNITS in Pre-Filled Syringe 1 EACH SC SCH (08:33)
[2019-06-01] MEDS: HumaLOG 300 UNITS/3 ML VIAL SC PRN (10:50)
[2019-06-01] MEDS: Sodium Chloride 0.9% 1,000 ML IV SCH (11:35)
[2019-06-01] MEDS: Micafungin 100 MG in Sodium Chloride 0.9% 100 ML IVPB SCH (13:08)
--- NOTE | 2019-06-01 16:43 | PDOC.HOSPP ---
- Subjective Encounter Date: 06/01/19 Encounter Time: 10:35 Subjective: f/u for falls, deconditioning, dementia, ? seizures and poor po intake. Plan for SNF transfer when approved. - Objective Vital Signs & Weight: Vital Signs (12 hours) Temp Pulse Resp BP BP Pulse Ox 06/01/19 15:13 97.9 F 72 20 142/69 H 92 L 06/01/19 11:42 98.3 F 74 18 135/71 92 L 06/01/19 08:19 77 186/86 H 06/01/19 08:18 188/86 H 06/01/19 07:34 98.2 F 77 18 188/86 H 94 L Weight Weight 164 lb 0.383 oz I&O: 05/31/19 06/01/19 06/02/19 06:59 06:59 06:59 Intake Total 500 150 300 Output Total 3400 800 Balance -2900 -650 300 Result Diagrams: 05/29/19 04:06 05/31/19 05:10 Additional Labs: Accuchecks 06/01/19 06/01/19 05/31/19 10:37 05:54 20:57 POC Glucose 240 H 137 H 135 H 05/31/19 16:33 POC Glucose 173 H Microbiology 05/27/19 20:03 Venous blood - Right Hand Blood Culture - Preliminary NO GROWTH AT 48 HOURS 05/27/19 19:59 Venous blood - Right Arm Blood Culture - Preliminary NO GROWTH AT 48 HOURS 05/27/19 19:40 Urine Straight Catheter Urine Culture - Preliminary Yeast species EKG Reviewed by me: Yes (Tele - SR) Hospitalist ROS - Medication Medications: Active Medications Generic Name Dose Route Start Last Admin Trade Name Freq PRN Reason Stop Dose Admin Acetaminophen 650 mg 05/28/19 01:14 06/01/19 08:19 Tylenol PO 650 mg Q4H PRN Administration Headache/Fever/Mild Pain (1-3) Aspirin 325 mg 05/28/19 09:00 06/01/19 08:18 Ecotrin PO 325 mg DAILY GENESIS Administration Atorvastatin Calcium 40 mg 05/28/19 21:00 05/31/19 20:54 Lipitor PO 40 mg HS GENESIS Administration Carvedilol 6.25 mg 05/28/19 09:00 06/01/19 08:18 Coreg PO 6.25 mg BID GENESIS Administration Cholecalciferol 1,000 units 05/28/19 09:00 06/01/19 08:19 Vitamin D3 PO 1,000 units DAILY GENESIS Administration Clonidine 0.1 mg 05/28/19 04:29 06/01/19 01:01 Catapres PO 0.1 mg Q4H PRN Administration BP > 160/100 Enoxaparin Sodium 40 mg 05/28/19 09:00 06/01/19 08:20 Lovenox SC 40 mg 0900 GENESIS Administration Hydrochlorothiazide 25 mg 05/28/19 09:00 06/01/19 08:19 Hydrochlorothiazide PO 25 mg DAILY GENESIS Administration Insulin Glargine 30 units/ 0.3 mls @ 0 mls/hr 05/28/19 09:00 06/01/19 08:33 Miscellaneous Medication SC 0.3 mls QAM GENESIS Administration Micafungin Sodium 100 mg/ 100 mls @ 100 mls/hr 05/31/19 14:00 06/01/19 13:08 Sodium Chloride IVPB 100 mls Q24HR GENESIS Administration Sodium Chloride 1,000 mls @ 50 mls/hr 05/31/19 15:44 06/01/19 11:35 Normal Saline 0.9% IV 1,000 mls .Q20H GENESIS Administration Insulin Human Lispro 0 units 05/28/19 10:17 06/01/19 10:50 Humalog SC 3 unit .MILD SLIDING SCALE PRN Administration Mild Correctional Scale Levetiracetam 500 mg 05/29/19 21:00 06/01/19 08:20 Keppra Oral Solution PO 500 mg BID GENESIS Administration Levothyroxine Sodium 50 mcg 05/28/19 06:00 06/01/19 05:41 Synthroid PO 50 mcg 0600 GENESIS Administration Losartan Potassium 100 mg 05/28/19 09:00 06/01/19 08:19 Cozaar PO 100 mg DAILY GENESIS Administration Nifedipine 60 mg 05/28/19 09:00 06/01/19 08:19 Procardia Xl PO 60 mg DAILY GENESIS Administration Ondansetron HCl 4 mg 05/28/19 01:14 05/29/19 15:01 Zofran IVP 4 mg Q6H PRN Administration Nausea/Vomiting Oxybutynin Chloride 5 mg 05/28/19 09:00 06/01/19 08:19 Ditropan PO 5 mg BID GENESIS Administration Pantoprazole Sodium 40 mg 05/28/19 09:00 06/01/19 08:19 Protonix PO 40 mg DAILY GENESIS Administration Sodium Chloride 10 ml 05/28/19 09:00 06/01/19 08:18 Flush - Normal Saline IVF Not Given Q12HR GENESIS Tamsulosin HCl 0.4 mg 05/29/19 21:00 05/31/19 20:54 Flomax PO 0.4 mg HS GENESIS Administration - Exam General Appearance: NAD Eye: PERRL, anicteric sclera ENT: normocephalic atraumatic, no oropharyngeal lesions Neck: supple, symmetric, no JVD, no thyromegaly, no lymphadenopathy Heart: RRR, no gallops, no rubs, normal peripheral pulses Respiratory: CTAB, no wheezes, no rales, no ronchi Gastrointestinal: soft, non-tender, non-distended, normal bowel sounds, no palpable masses Extremities: no cyanosis, no clubbing, no edema Skin: normal turgor, no lesions Neurological: no new deficit Neurological - other findings: bradykinesia Musculoskeletal: generalized weakness Psychiatric: oriented to person Hosp A/P (1) Acute metabolic encephalopathy Code(s): G93.41 - METABOLIC ENCEPHALOPATHY Status: Acute Plan: Improved with supportive mgmt, likely multifactorial (2) Normal pressure hydrocephalus Code(s): G91.2 - (IDIOPATHIC) NORMAL PRESSURE HYDROCEPHALUS Status: Chronic Plan: Suspected, conservative mgmt (3) Seizure disorder Code(s): G40.909 - EPILEPSY, UNSP, NOT INTRACTABLE, WITHOUT STATUS EPILEPTICUS Status: Chronic Plan: continue Keppra 500mg BID, no recurrent seizures (4) CKD (chronic kidney disease) stage 3, GFR 30-59 ml/min Code(s): N18.3 - CHRONIC KIDNEY DISEASE, STAGE 3 (MODERATE) Status: Chronic (5) Dementia Code(s): F03.90 - UNSPECIFIED DEMENTIA WITHOUT BEHAVIORAL DISTURBANCE Status: Chronic (6) Muscular deconditioning Code(s): R29.898 - OTH SYMPTOMS AND SIGNS INVOLVING THE MUSCULOSKELETAL SYSTEM Status: Chronic (7) Candiduria Code(s): B37.49 - OTHER UROGENITAL CANDIDIASIS Status: Acute Plan: Continue Micafungin - Plan PT/OT, social security benefits interviewer, DVT proph w/SCDs Stable currently EEG negative currently Continue Keppra 500mg BID Continue Micafungin 100mg IV daily PT for mobilization CM consult for SNF options Saline lock IVF's
[2019-06-01] MEDS: Tamsulosin HCl 0.4 MG CAP PO SCH (21:24)
[2019-06-01] MEDS: Atorvastatin Calcium 40 MG TAB PO SCH (21:24)
[2019-06-02] MEDS: cloNIDine 0.1 MG TAB PO PRN (00:14)
[2019-06-02] MEDS: Levothyroxine Sodium 50 MCG TAB PO SCH (05:13)
[2019-06-02] MEDS: Aspirin 325 mg Enteric Coated Tablet PO SCH (09:27)
[2019-06-02] MEDS: Carvedilol 6.25 MG TAB PO SCH ×2 (09:27→20:22)
[2019-06-02] MEDS: Hydrochlorothiazide 25 MG TAB PO SCH (09:28)
[2019-06-02] MEDS: Enoxaparin Sodium 40 MG/0.4 ML SYRINGE SC SCH (09:28)
[2019-06-02] MEDS: Losartan 25 MG TAB PO SCH (09:28)
[2019-06-02] MEDS: NIFEdipine XL 60 MG TAB PO SCH (09:28)
[2019-06-02] MEDS: levETIRAcetam 500 mg/5 ml Oral Solution PO SCH ×2 (09:29→20:21)
[2019-06-02] MEDS: Oxybutynin 5 MG TAB PO SCH ×2 (09:29→20:22)
[2019-06-02] MEDS: Acetaminophen 325 MG TAB PO PRN (09:29)
[2019-06-02] MEDS: Insulin Glargine 30 UNITS in Pre-Filled Syringe 1 EACH SC SCH (09:30)
[2019-06-02] MEDS: HumaLOG 300 UNITS/3 ML VIAL SC PRN ×2 (11:13→17:27)
[2019-06-02] MEDS: Micafungin 100 MG in Sodium Chloride 0.9% 100 ML IVPB SCH (13:59)
--- NOTE | 2019-06-02 14:44 | PDOC.HOSPP ---
- Subjective Subjective: Seen and examined. No acute complaints. Minimally responsive. Denies pain. Breathing well. Pending snf placement. - Objective Vital Signs & Weight: Vital Signs (12 hours) Temp Pulse Pulse Pulse Resp BP BP 06/02/19 12:00 99.3 F 74 12 06/02/19 11:20 72 76 105/59 L 06/02/19 09:28 71 164/77 H 06/02/19 09:27 164/77 H 06/02/19 07:40 98.9 F 71 18 06/02/19 05:05 06/02/19 04:00 98.1 F 63 18 BP BP Pulse Ox 06/02/19 12:00 111/56 L 93 L 06/02/19 11:20 113/61 06/02/19 09:28 06/02/19 09:27 06/02/19 07:40 164/77 H 94 L 06/02/19 05:05 151/78 H 06/02/19 04:00 168/81 H 96 Weight Weight 164 lb 0.383 oz I&O: 06/01/19 06/02/19 06/03/19 06:59 06:59 06:59 Intake Total 150 900 300 Output Total 800 1300 Balance -650 -400 300 Result Diagrams: 05/29/19 04:06 05/31/19 05:10 Additional Labs: Accuchecks 06/02/19 06/02/19 06/01/19 10:56 05:58 20:21 POC Glucose 275 H 135 H 153 H 06/01/19 17:01 POC Glucose 100 Radiology Reviewed by me: Yes (MRI brain) Hospitalist ROS - Review of Systems ROS unobtainable: due to mental status - Medication Medications: Active Medications Generic Name Dose Route Start Last Admin Trade Name Freq PRN Reason Stop Dose Admin Acetaminophen 650 mg 05/28/19 01:14 06/02/19 09:29 Tylenol PO 650 mg Q4H PRN Administration Headache/Fever/Mild Pain (1-3) Aspirin 325 mg 05/28/19 09:00 06/02/19 09:27 Ecotrin PO 325 mg DAILY GENESIS Administration Atorvastatin Calcium 40 mg 05/28/19 21:00 06/01/19 21:24 Lipitor PO 40 mg HS GENESIS Administration Carvedilol 6.25 mg 05/28/19 09:00 06/02/19 09:27 Coreg PO 6.25 mg BID GENESIS Administration Cholecalciferol 1,000 units 05/28/19 09:00 06/02/19 09:27 Vitamin D3 PO 1,000 units DAILY GENESIS Administration Clonidine 0.1 mg 05/28/19 04:29 06/02/19 00:14 Catapres PO 0.1 mg Q4H PRN Administration BP > 160/100 Enoxaparin Sodium 40 mg 05/28/19 09:00 06/02/19 09:28 Lovenox SC 40 mg 0900 GENESIS Administration Hydrochlorothiazide 25 mg 05/28/19 09:00 06/02/19 09:28 Hydrochlorothiazide PO 25 mg DAILY GENESIS Administration Insulin Glargine 30 units/ 0.3 mls @ 0 mls/hr 05/28/19 09:00 06/02/19 09:30 Miscellaneous Medication SC 0.3 mls QAM GENESIS Administration Micafungin Sodium 100 mg/ 100 mls @ 100 mls/hr 05/31/19 14:00 06/02/19 13:59 Sodium Chloride IVPB 100 mls Q24HR GENESIS Administration Insulin Human Lispro 0 units 05/28/19 10:17 06/02/19 11:13 Humalog SC 4 unit .MILD SLIDING SCALE PRN Administration Mild Correctional Scale Levetiracetam 500 mg 05/29/19 21:00 06/02/19 09:29 Keppra Oral Solution PO 500 mg BID GENESIS Administration Levothyroxine Sodium 50 mcg 05/28/19 06:00 06/02/19 05:13 Synthroid PO 50 mcg 0600 GENESIS Administration Losartan Potassium 100 mg 05/28/19 09:00 06/02/19 09:28 Cozaar PO 100 mg DAILY GENESIS Administration Nifedipine 60 mg 05/28/19 09:00 06/02/19 09:28 Procardia Xl PO 60 mg DAILY GENESIS Administration Ondansetron HCl 4 mg 05/28/19 01:14 05/29/19 15:01 Zofran IVP 4 mg Q6H PRN Administration Nausea/Vomiting Oxybutynin Chloride 5 mg 05/28/19 09:00 06/02/19 09:29 Ditropan PO 5 mg BID GENESIS Administration Pantoprazole Sodium 40 mg 05/28/19 09:00 06/02/19 09:29 Protonix PO 40 mg DAILY GENESIS Administration Sodium Chloride 10 ml 05/28/19 09:00 06/02/19 09:29 Flush - Normal Saline IVF 10 ml Q12HR GENESIS Administration Tamsulosin HCl 0.4 mg 05/29/19 21:00 06/01/19 21:24 Flomax PO 0.4 mg HS GENESIS Administration - Exam General Appearance: NAD, awake alert Eye: PERRL ENT: normocephalic atraumatic, moist mucosa Neck: supple, symmetric, no lymphadenopathy Heart: no murmur, no gallops, no rubs Respiratory: CTAB, no wheezes, no rales, normal chest expansion Gastrointestinal: soft, non-tender, normal bowel sounds, no guarding, no rigidity Extremities: 1+ LE edema Skin: no lesions, no rashes Neurological: cranial nerve grossly intact, no focal deficits Musculoskeletal: generalized weakness Psychiatric: not oriented Hosp A/P (1) Acute encephalopathy Code(s): G93.40 - ENCEPHALOPATHY, UNSPECIFIED Status: Acute (2) Candiduria Code(s): B37.49 - OTHER UROGENITAL CANDIDIASIS Status: Acute (3) Proteinuria Code(s): R80.9 - PROTEINURIA, UNSPECIFIED Status: Acute (4) Uncontrolled diabetes mellitus Code(s): E11.65 - TYPE 2 DIABETES MELLITUS WITH HYPERGLYCEMIA Status: Acute (5) Urinary retention Code(s): R33.9 - RETENTION OF URINE, UNSPECIFIED Status: Acute (6) Normal pressure hydrocephalus Code(s): G91.2 - (IDIOPATHIC) NORMAL PRESSURE HYDROCEPHALUS Status: Chronic (7) Seizure disorder Code(s): G40.909 - EPILEPSY, UNSP, NOT INTRACTABLE, WITHOUT STATUS EPILEPTICUS Status: Chronic (8) Syncope Code(s): R55 - SYNCOPE AND COLLAPSE Status: Acute (9) Atherosclerosis of aorta Code(s): I70.0 - ATHEROSCLEROSIS OF AORTA Status: Chronic (10) CKD (chronic kidney disease) stage 3, GFR 30-59 ml/min Code(s): N18.3 - CHRONIC KIDNEY DISEASE, STAGE 3 (MODERATE) Status: Chronic (11) Dementia Code(s): F03.90 - UNSPECIFIED DEMENTIA WITHOUT BEHAVIORAL DISTURBANCE Status: Chronic (12) GERD (gastroesophageal reflux disease) Code(s): K21.9 - GASTRO-ESOPHAGEAL REFLUX DISEASE WITHOUT ESOPHAGITIS Status: Chronic (13) HLD (hyperlipidemia) Code(s): E78.5 - HYPERLIPIDEMIA, UNSPECIFIED Status: Chronic (14) HTN (hypertension) Code(s): I10 - ESSENTIAL (PRIMARY) HYPERTENSION Status: Chronic (15) Hypothyroidism Code(s): E03.9 - HYPOTHYROIDISM, UNSPECIFIED Status: Chronic (16) Muscular deconditioning Code(s): R29.898 - OTH SYMPTOMS AND SIGNS INVOLVING THE MUSCULOSKELETAL SYSTEM Status: Chronic (17) Recurrent falls while walking Code(s): R29.6 - REPEATED FALLS Status: Chronic (18) Hypokalemia Code(s): E87.6 - HYPOKALEMIA Status: Resolved - Plan Plan: medical unit with telemetry stable for assisted facility Neurology consultation, recommendations appreciated EEG negative patient with enlarged ventricles concerning for normal pressure hydrocephalus, however she is responding to Keppra and neurology recommends no further acute inpatient workup or treatment No shunting/ surgery indicated at this time per neurology patient on antifungal therapy for urinary tract infection with al MRI brain reviewed blood pressure control continue other home medications is able symptomatic therapy for nausea and vomiting as needed long-term prognosis for meaningful recovery is guarded
[2019-06-02] MEDS: Atorvastatin Calcium 40 MG TAB PO SCH (20:22)
[2019-06-02] MEDS: Tamsulosin HCl 0.4 MG CAP PO SCH (20:23)
[2019-06-03] MEDS: Levothyroxine Sodium 50 MCG TAB PO SCH (05:46)
[2019-06-03] MEDS: NIFEdipine XL 60 MG TAB PO SCH (10:37)
[2019-06-03] MEDS: Oxybutynin 5 MG TAB PO SCH ×2 (10:37→22:01)
[2019-06-03] MEDS: Losartan 25 MG TAB PO SCH (10:37)
[2019-06-03] MEDS: Aspirin 325 mg Enteric Coated Tablet PO SCH (10:37)
[2019-06-03] MEDS: Carvedilol 6.25 MG TAB PO SCH ×2 (10:38→22:00)
[2019-06-03] MEDS: Hydrochlorothiazide 25 MG TAB PO SCH (10:38)
[2019-06-03] MEDS: Enoxaparin Sodium 40 MG/0.4 ML SYRINGE SC SCH (10:38)
[2019-06-03] MEDS: levETIRAcetam 500 mg/5 ml Oral Solution PO SCH ×2 (10:38→22:00)
[2019-06-03] MEDS: Acetaminophen 325 MG TAB PO PRN ×2 (10:52→18:31)
[2019-06-03] MEDS: HumaLOG 300 UNITS/3 ML VIAL SC PRN ×2 (10:52→18:31)
[2019-06-03] MEDS: Micafungin 100 MG in Sodium Chloride 0.9% 100 ML IVPB SCH (13:16)
[2019-06-03] MEDS: Insulin Glargine 30 UNITS in Pre-Filled Syringe 1 EACH SC SCH (13:17)
--- NOTE | 2019-06-03 15:35 | PDOC.HOSPP ---
- Subjective Subjective: Seen and examined. Patient son at bedside, all questions answered in detail. Patient working with physical therapy this a.m. Patient is having pain out of proportion to minor movements with physical therapy. Patient has become stiff from laying in bed too much and needs more movement. Pending snf placement. - Objective Vital Signs & Weight: Vital Signs (12 hours) Temp Pulse Pulse Resp BP BP BP 06/03/19 12:00 98.0 F 77 20 166/81 H 06/03/19 10:38 155/83 H 06/03/19 10:37 69 155/83 H 06/03/19 09:28 76 172/95 H 06/03/19 08:00 06/03/19 07:57 97.9 F 69 18 155/83 H Pulse Ox 06/03/19 12:00 96 06/03/19 10:38 06/03/19 10:37 06/03/19 09:28 06/03/19 08:00 97 06/03/19 07:57 97 Weight Weight 164 lb 0.383 oz I&O: 06/02/19 06/03/19 06/04/19 06:59 06:59 06:59 Intake Total 900 425 Output Total 1300 1000 Balance -400 -575 Result Diagrams: 05/29/19 04:06 05/31/19 05:10 Additional Labs: Accuchecks 06/03/19 06/03/19 06/02/19 10:53 05:48 16:53 POC Glucose 211 H 103 183 H Hospitalist ROS - Review of Systems All other systems reviewed; all pertinent +/- noted in HPI/Subj - Medication Medications: Active Medications Generic Name Dose Route Start Last Admin Trade Name Freq PRN Reason Stop Dose Admin Acetaminophen 650 mg 05/28/19 01:14 06/03/19 10:52 Tylenol PO 650 mg Q4H PRN Administration Headache/Fever/Mild Pain (1-3) Aspirin 325 mg 05/28/19 09:00 06/03/19 10:37 Ecotrin PO 325 mg DAILY GENESIS Administration Atorvastatin Calcium 40 mg 05/28/19 21:00 06/02/19 20:22 Lipitor PO 40 mg HS GENESIS Administration Carvedilol 6.25 mg 05/28/19 09:00 06/03/19 10:38 Coreg PO 6.25 mg BID GENESIS Administration Cholecalciferol 1,000 units 05/28/19 09:00 06/03/19 10:37 Vitamin D3 PO 1,000 units DAILY GENESIS Administration Clonidine 0.1 mg 05/28/19 04:29 06/02/19 00:14 Catapres PO 0.1 mg Q4H PRN Administration BP > 160/100 Enoxaparin Sodium 40 mg 05/28/19 09:00 06/03/19 10:38 Lovenox SC 40 mg 0900 GENESIS Administration Hydrochlorothiazide 25 mg 05/28/19 09:00 06/03/19 10:38 Hydrochlorothiazide PO 25 mg DAILY GENESIS Administration Insulin Glargine 30 units/ 0.3 mls @ 0 mls/hr 05/28/19 09:00 06/03/19 13:17 Miscellaneous Medication SC 0.3 mls QAM GENESIS Administration Micafungin Sodium 100 mg/ 100 mls @ 100 mls/hr 05/31/19 14:00 06/03/19 13:16 Sodium Chloride IVPB 100 mls Q24HR GENESIS Administration Insulin Human Lispro 0 units 05/28/19 10:17 06/03/19 10:52 Humalog SC 3 unit .MILD SLIDING SCALE PRN Administration Mild Correctional Scale Levetiracetam 500 mg 05/29/19 21:00 06/03/19 10:38 Keppra Oral Solution PO 500 mg BID GENESIS Administration Levothyroxine Sodium 50 mcg 05/28/19 06:00 06/03/19 05:46 Synthroid PO 50 mcg 0600 GENESIS Administration Losartan Potassium 100 mg 05/28/19 09:00 06/03/19 10:37 Cozaar PO 100 mg DAILY GENESIS Administration Nifedipine 60 mg 05/28/19 09:00 06/03/19 10:37 Procardia Xl PO 60 mg DAILY GENESIS Administration Ondansetron HCl 4 mg 05/28/19 01:14 05/29/19 15:01 Zofran IVP 4 mg Q6H PRN Administration Nausea/Vomiting Oxybutynin Chloride 5 mg 05/28/19 09:00 06/03/19 10:37 Ditropan PO 5 mg BID GENESIS Administration Pantoprazole Sodium 40 mg 05/28/19 09:00 06/03/19 10:38 Protonix PO 40 mg DAILY GENESIS Administration Sodium Chloride 10 ml 05/28/19 09:00 06/03/19 10:39 Flush - Normal Saline IVF 10 ml Q12HR GENESIS Administration Tamsulosin HCl 0.4 mg 05/29/19 21:00 06/02/19 20:23 Flomax PO 0.4 mg HS GENESIS Administration - Exam General Appearance: NAD, awake alert Eye: anicteric sclera ENT: normocephalic atraumatic, moist mucosa Neck: supple, symmetric, no lymphadenopathy Heart: no murmur, no gallops, no rubs Respiratory: CTAB, no wheezes, no rales, no ronchi Gastrointestinal: soft, non-tender, no guarding, no rigidity Extremities: 1+ LE edema Skin: no lesions, no rashes Neurological: cranial nerve grossly intact, no focal deficits Musculoskeletal: generalized weakness Psychiatric: oriented to person, flat affect Hosp A/P (1) Acute encephalopathy Code(s): G93.40 - ENCEPHALOPATHY, UNSPECIFIED Status: Acute (2) Candiduria Code(s): B37.49 - OTHER UROGENITAL CANDIDIASIS Status: Acute (3) Proteinuria Code(s): R80.9 - PROTEINURIA, UNSPECIFIED Status: Acute (4) Uncontrolled diabetes mellitus Code(s): E11.65 - TYPE 2 DIABETES MELLITUS WITH HYPERGLYCEMIA Status: Acute (5) Urinary retention Code(s): R33.9 - RETENTION OF URINE, UNSPECIFIED Status: Acute (6) Normal pressure hydrocephalus Code(s): G91.2 - (IDIOPATHIC) NORMAL PRESSURE HYDROCEPHALUS Status: Chronic (7) Seizure disorder Code(s): G40.909 - EPILEPSY, UNSP, NOT INTRACTABLE, WITHOUT STATUS EPILEPTICUS Status: Chronic (8) Syncope Code(s): R55 - SYNCOPE AND COLLAPSE Status: Acute (9) Atherosclerosis of aorta Code(s): I70.0 - ATHEROSCLEROSIS OF AORTA Status: Chronic (10) CKD (chronic kidney disease) stage 3, GFR 30-59 ml/min Code(s): N18.3 - CHRONIC KIDNEY DISEASE, STAGE 3 (MODERATE) Status: Chronic (11) Dementia Code(s): F03.90 - UNSPECIFIED DEMENTIA WITHOUT BEHAVIORAL DISTURBANCE Status: Chronic (12) GERD (gastroesophageal reflux disease) Code(s): K21.9 - GASTRO-ESOPHAGEAL REFLUX DISEASE WITHOUT ESOPHAGITIS Status: Chronic (13) HLD (hyperlipidemia) Code(s): E78.5 - HYPERLIPIDEMIA, UNSPECIFIED Status: Chronic (14) HTN (hypertension) Code(s): I10 - ESSENTIAL (PRIMARY) HYPERTENSION Status: Chronic (15) Hypothyroidism Code(s): E03.9 - HYPOTHYROIDISM, UNSPECIFIED Status: Chronic (16) Muscular deconditioning Code(s): R29.898 - OTH SYMPTOMS AND SIGNS INVOLVING THE MUSCULOSKELETAL SYSTEM Status: Chronic (17) Recurrent falls while walking Code(s): R29.6 - REPEATED FALLS Status: Chronic (18) Hypokalemia Code(s): E87.6 - HYPOKALEMIA Status: Resolved - Plan Plan: medical unit with telemetry stable for halfway facility Neurology consultation, recommendations appreciated EEG negative patient with enlarged ventricles concerning for normal pressure hydrocephalus, however she is responding to Keppra and neurology recommends no further acute inpatient workup or treatment No shunting/ surgery indicated at this time per neurology patient on antifungal therapy for urinary tract infection with al MRI brain reviewed blood pressure control continue other home medications is able symptomatic therapy for nausea and vomiting as needed long-term prognosis for meaningful recovery is guarded
[2019-06-03] MEDS: Tamsulosin HCl 0.4 MG CAP PO SCH (22:00)
[2019-06-03] MEDS: Atorvastatin Calcium 40 MG TAB PO SCH (22:01)
[2019-06-04] MEDS: Levothyroxine Sodium 50 MCG TAB PO SCH (06:19)
[2019-06-04] MEDS: Aspirin 325 mg Enteric Coated Tablet PO SCH (09:29)
[2019-06-04] MEDS: levETIRAcetam 500 mg/5 ml Oral Solution PO SCH ×2 (09:29→22:37)
[2019-06-04] MEDS: Losartan 25 MG TAB PO SCH (09:30)
[2019-06-04] MEDS: Hydrochlorothiazide 25 MG TAB PO SCH (09:30)
[2019-06-04] MEDS: Carvedilol 6.25 MG TAB PO SCH ×2 (09:30→22:37)
[2019-06-04] MEDS: Oxybutynin 5 MG TAB PO SCH ×2 (09:31→22:37)
[2019-06-04] MEDS: NIFEdipine XL 60 MG TAB PO SCH (09:32)
[2019-06-04] MEDS: Insulin Glargine 30 UNITS in Pre-Filled Syringe 1 EACH SC SCH (09:32)
[2019-06-04] MEDS: Enoxaparin Sodium 40 MG/0.4 ML SYRINGE SC SCH (09:35)
[2019-06-04] MEDS: cloNIDine 0.1 MG TAB PO PRN (10:56)
[2019-06-04] MEDS: Micafungin 100 MG in Sodium Chloride 0.9% 100 ML IVPB SCH (15:02)
--- NOTE | 2019-06-04 15:53 | PDOC.HOSPP ---
- Subjective Subjective: Seen and examined. More alert and awake today. Answering some questions correctly. Patient responding to [place] function. Blood sugars controlled in the 70s to low 200s. Pending assisted bed. - Objective Vital Signs & Weight: Vital Signs (12 hours) Temp Pulse Pulse Pulse Resp BP BP 06/04/19 15:49 98.3 F 64 16 06/04/19 14:39 60 64 159/77 H 06/04/19 12:00 60 06/04/19 11:44 98.9 F 71 20 06/04/19 10:56 176/84 H 06/04/19 10:54 68 06/04/19 08:15 06/04/19 07:51 98.4 F 58 L 12 BP BP Pulse Ox 06/04/19 15:49 176/81 H 95 06/04/19 14:39 143/78 H 06/04/19 12:00 160/78 H 06/04/19 11:44 176/84 H 96 06/04/19 10:56 06/04/19 10:54 176/84 H 06/04/19 08:15 97 06/04/19 07:51 195/81 H 97 Weight Weight 164 lb 0.383 oz I&O: 06/03/19 06/04/19 06/05/19 06:59 06:59 06:59 Intake Total 425 Output Total 1000 950 Balance -575 -950 Result Diagrams: 05/29/19 04:06 05/31/19 05:10 Additional Labs: Accuchecks 06/04/19 06/04/19 06/03/19 10:52 06:22 16:57 POC Glucose 133 H 70 215 H Hospitalist ROS - Review of Systems All other systems reviewed; all pertinent +/- noted in HPI/Subj - Medication Medications: Active Medications Generic Name Dose Route Start Last Admin Trade Name Freq PRN Reason Stop Dose Admin Acetaminophen 650 mg 05/28/19 01:14 06/03/19 18:31 Tylenol PO 650 mg Q4H PRN Administration Headache/Fever/Mild Pain (1-3) Aspirin 325 mg 05/28/19 09:00 06/04/19 09:29 Ecotrin PO 325 mg DAILY GENESIS Administration Atorvastatin Calcium 40 mg 05/28/19 21:00 06/03/19 22:01 Lipitor PO 40 mg HS GENESIS Administration Carvedilol 6.25 mg 05/28/19 09:00 06/04/19 09:30 Coreg PO 6.25 mg BID GENESIS Administration Cholecalciferol 1,000 units 05/28/19 09:00 06/04/19 09:32 Vitamin D3 PO 1,000 units DAILY GENESIS Administration Clonidine 0.1 mg 05/28/19 04:29 06/04/19 10:56 Catapres PO 0.1 mg Q4H PRN Administration BP > 160/100 Enoxaparin Sodium 40 mg 05/28/19 09:00 06/04/19 09:35 Lovenox SC 40 mg 0900 GENESIS Administration Hydrochlorothiazide 25 mg 05/28/19 09:00 06/04/19 09:30 Hydrochlorothiazide PO 25 mg DAILY GENESIS Administration Insulin Glargine 30 units/ 0.3 mls @ 0 mls/hr 05/28/19 09:00 06/04/19 09:32 Miscellaneous Medication SC 0.3 mls QAM GENESIS Administration Micafungin Sodium 100 mg/ 100 mls @ 100 mls/hr 05/31/19 14:00 06/04/19 15:02 Sodium Chloride IVPB 100 mls Q24HR GENESIS Administration Insulin Human Lispro 0 units 05/28/19 10:17 06/03/19 18:31 Humalog SC 3 unit .MILD SLIDING SCALE PRN Administration Mild Correctional Scale Levetiracetam 500 mg 05/29/19 21:00 06/04/19 09:29 Keppra Oral Solution PO 500 mg BID GENESIS Administration Levothyroxine Sodium 50 mcg 05/28/19 06:00 06/04/19 06:19 Synthroid PO 50 mcg 0600 GENESIS Administration Losartan Potassium 100 mg 05/28/19 09:00 06/04/19 09:30 Cozaar PO 100 mg DAILY GENESIS Administration Nifedipine 60 mg 05/28/19 09:00 06/04/19 09:32 Procardia Xl PO 60 mg DAILY GENESIS Administration Ondansetron HCl 4 mg 05/28/19 01:14 05/29/19 15:01 Zofran IVP 4 mg Q6H PRN Administration Nausea/Vomiting Oxybutynin Chloride 5 mg 05/28/19 09:00 06/04/19 09:31 Ditropan PO 5 mg BID GENESIS Administration Pantoprazole Sodium 40 mg 05/28/19 09:00 06/04/19 09:32 Protonix PO 40 mg DAILY GENESIS Administration Sodium Chloride 10 ml 05/28/19 09:00 06/04/19 09:33 Flush - Normal Saline IVF Not Given Q12HR GENESIS Tamsulosin HCl 0.4 mg 05/29/19 21:00 06/03/19 22:00 Flomax PO 0.4 mg HS GENESIS Administration - Exam General Appearance: NAD, awake alert Eye: anicteric sclera ENT: moist mucosa Neck: supple, symmetric Heart: RRR, no murmur, no rubs Respiratory: CTAB, no wheezes, no rales, no ronchi Gastrointestinal: soft, non-tender, non-distended, no guarding, no rigidity Extremities: no clubbing, no edema Skin: no lesions, no rashes Neurological: cranial nerve grossly intact, no new deficit Musculoskeletal: generalized weakness Psychiatric: oriented to person Hosp A/P (1) Acute encephalopathy Code(s): G93.40 - ENCEPHALOPATHY, UNSPECIFIED Status: Acute (2) Candiduria Code(s): B37.49 - OTHER UROGENITAL CANDIDIASIS Status: Acute (3) Proteinuria Code(s): R80.9 - PROTEINURIA, UNSPECIFIED Status: Acute (4) Uncontrolled diabetes mellitus Code(s): E11.65 - TYPE 2 DIABETES MELLITUS WITH HYPERGLYCEMIA Status: Acute (5) Urinary retention Code(s): R33.9 - RETENTION OF URINE, UNSPECIFIED Status: Acute (6) Normal pressure hydrocephalus Code(s): G91.2 - (IDIOPATHIC) NORMAL PRESSURE HYDROCEPHALUS Status: Chronic (7) Seizure disorder Code(s): G40.909 - EPILEPSY, UNSP, NOT INTRACTABLE, WITHOUT STATUS EPILEPTICUS Status: Chronic (8) Syncope Code(s): R55 - SYNCOPE AND COLLAPSE Status: Acute (9) Atherosclerosis of aorta Code(s): I70.0 - ATHEROSCLEROSIS OF AORTA Status: Chronic (10) CKD (chronic kidney disease) stage 3, GFR 30-59 ml/min Code(s): N18.3 - CHRONIC KIDNEY DISEASE, STAGE 3 (MODERATE) Status: Chronic (11) Dementia Code(s): F03.90 - UNSPECIFIED DEMENTIA WITHOUT BEHAVIORAL DISTURBANCE Status: Chronic (12) GERD (gastroesophageal reflux disease) Code(s): K21.9 - GASTRO-ESOPHAGEAL REFLUX DISEASE WITHOUT ESOPHAGITIS Status: Chronic (13) HLD (hyperlipidemia) Code(s): E78.5 - HYPERLIPIDEMIA, UNSPECIFIED Status: Chronic (14) HTN (hypertension) Code(s): I10 - ESSENTIAL (PRIMARY) HYPERTENSION Status: Chronic (15) Hypothyroidism Code(s): E03.9 - HYPOTHYROIDISM, UNSPECIFIED Status: Chronic (16) Muscular deconditioning Code(s): R29.898 - OTH SYMPTOMS AND SIGNS INVOLVING THE MUSCULOSKELETAL SYSTEM Status: Chronic (17) Recurrent falls while walking Code(s): R29.6 - REPEATED FALLS Status: Chronic (18) Hypokalemia Code(s): E87.6 - HYPOKALEMIA Status: Resolved - Plan Plan: medical unit with telemetry stable for assisted facility Patient did not respond to Diflucan for al, now responding to Micafungin, a 7 day course will be completed on 06/07 patient on antifungal therapy for urinary tract infection with al Neurology consultation, recommendations appreciated EEG negative patient with enlarged ventricles concerning for normal pressure hydrocephalus, however she is responding to Keppra and neurology recommends no further acute inpatient workup or treatment No shunting/ surgery indicated at this time per neurology MRI brain reviewed blood pressure control continue other home medications is able symptomatic therapy for nausea and vomiting as needed long-term prognosis for meaningful recovery is guarded
[2019-06-04] MEDS: Acetaminophen 325 MG TAB PO PRN (18:33)
[2019-06-04] MEDS: Tamsulosin HCl 0.4 MG CAP PO SCH (22:37)
[2019-06-04] MEDS: Atorvastatin Calcium 40 MG TAB PO SCH (22:37)
[2019-06-05] MEDS: Levothyroxine Sodium 50 MCG TAB PO SCH (05:25)
[2019-06-05] MEDS: Insulin Glargine 30 UNITS in Pre-Filled Syringe 1 EACH SC SCH (09:29)
[2019-06-05] MEDS: Enoxaparin Sodium 40 MG/0.4 ML SYRINGE SC SCH (09:30)
[2019-06-05] MEDS: levETIRAcetam 500 mg/5 ml Oral Solution PO SCH ×2 (11:49→21:15)
[2019-06-05] MEDS: NIFEdipine XL 60 MG TAB PO SCH (11:51)
[2019-06-05] MEDS: Hydrochlorothiazide 25 MG TAB PO SCH (11:51)
[2019-06-05] MEDS: Losartan 25 MG TAB PO SCH (11:52)
[2019-06-05] MEDS: Oxybutynin 5 MG TAB PO SCH ×2 (11:52→21:15)
[2019-06-05] MEDS: Aspirin 325 mg Enteric Coated Tablet PO SCH (11:53)
[2019-06-05] MEDS: Carvedilol 6.25 MG TAB PO SCH ×2 (11:53→21:15)
[2019-06-05] MEDS: Micafungin 100 MG in Sodium Chloride 0.9% 100 ML IVPB SCH (15:08)
[2019-06-05] MEDS ORDERED: FLU VACC TS2019-20(65YR UP)/PF 180 MCG/0.5 ML SYRINGE IM ONE (15:45)
[2019-06-05] MEDS ORDERED: Prevnar 13-Val Conj/PF 0.5 ML SYRINGE IM ONE (15:45)
--- NOTE | 2019-06-05 16:15 | PDOC.HOSPP ---
- Subjective Subjective: Seen and examined. Less awake and alert this a.m. Not interested in her breakfast. Was found have urinary retention by nursing staff with 800 mL and her bladder, requiring straight catheterization. No family at bedside this a.m. Pending snf placement. - Objective Vital Signs & Weight: Vital Signs (12 hours) Temp Pulse Resp BP BP Pulse Ox 06/05/19 15:40 99.3 F 63 20 134/70 92 L 06/05/19 11:53 139/73 06/05/19 11:51 66 139/73 06/05/19 11:12 97.9 F 66 18 139/73 92 L 06/05/19 08:27 99 F 62 16 169/74 H 94 L Weight Weight 164 lb 0.383 oz I&O: 06/04/19 06/05/19 06/06/19 06:59 06:59 06:59 Intake Total 550 Output Total 950 1150 Balance -950 -600 Result Diagrams: 05/29/19 04:06 05/31/19 05:10 Additional Labs: Accuchecks 06/05/19 06/05/19 06/05/19 10:14 09:16 05:43 POC Glucose 132 H 154 H 158 H 06/04/19 06/04/19 19:19 16:58 POC Glucose 195 H 78 Hospitalist ROS - Review of Systems All other systems reviewed; all pertinent +/- noted in HPI/Subj - Medication Medications: Active Medications Generic Name Dose Route Start Last Admin Trade Name Freq PRN Reason Stop Dose Admin Acetaminophen 650 mg 05/28/19 01:14 06/04/19 18:33 Tylenol PO 650 mg Q4H PRN Administration Headache/Fever/Mild Pain (1-3) Aspirin 325 mg 05/28/19 09:00 06/05/19 11:53 Ecotrin PO 325 mg DAILY GENESIS Administration Atorvastatin Calcium 40 mg 05/28/19 21:00 06/04/19 22:37 Lipitor PO 40 mg HS GENESIS Administration Carvedilol 6.25 mg 05/28/19 09:00 06/05/19 11:53 Coreg PO 6.25 mg BID GENESIS Administration Cholecalciferol 1,000 units 05/28/19 09:00 06/05/19 11:51 Vitamin D3 PO 1,000 units DAILY GENESIS Administration Clonidine 0.1 mg 05/28/19 04:29 06/04/19 10:56 Catapres PO 0.1 mg Q4H PRN Administration BP > 160/100 Enoxaparin Sodium 40 mg 05/28/19 09:00 06/05/19 09:30 Lovenox SC 40 mg 0900 GENESIS Administration Hydrochlorothiazide 25 mg 05/28/19 09:00 06/05/19 11:51 Hydrochlorothiazide PO 25 mg DAILY GENESIS Administration Insulin Glargine 30 units/ 0.3 mls @ 0 mls/hr 05/28/19 09:00 06/05/19 09:29 Miscellaneous Medication SC 0.3 mls QAM GENESIS Administration Micafungin Sodium 100 mg/ 100 mls @ 100 mls/hr 05/31/19 14:00 06/05/19 15:08 Sodium Chloride IVPB 100 mls Q24HR GENESIS Administration Insulin Human Lispro 0 units 05/28/19 10:17 06/03/19 18:31 Humalog SC 3 unit .MILD SLIDING SCALE PRN Administration Mild Correctional Scale Levetiracetam 500 mg 05/29/19 21:00 06/05/19 11:49 Keppra Oral Solution PO 500 mg BID GENESIS Administration Levothyroxine Sodium 50 mcg 05/28/19 06:00 06/05/19 05:25 Synthroid PO 50 mcg 0600 GENESIS Administration Losartan Potassium 100 mg 05/28/19 09:00 06/05/19 11:52 Cozaar PO 100 mg DAILY GENESIS Administration Nifedipine 60 mg 05/28/19 09:00 06/05/19 11:51 Procardia Xl PO 60 mg DAILY GENESIS Administration Ondansetron HCl 4 mg 05/28/19 01:14 05/29/19 15:01 Zofran IVP 4 mg Q6H PRN Administration Nausea/Vomiting Oxybutynin Chloride 5 mg 05/28/19 09:00 06/05/19 11:52 Ditropan PO 5 mg BID GENESIS Administration Pantoprazole Sodium 40 mg 05/28/19 09:00 06/05/19 11:52 Protonix PO 40 mg DAILY GENESIS Administration Sodium Chloride 10 ml 05/28/19 09:00 06/05/19 11:54 Flush - Normal Saline IVF 10 ml Q12HR GENESIS Administration Tamsulosin HCl 0.4 mg 05/29/19 21:00 06/04/19 22:37 Flomax PO 0.4 mg HS GENESIS Administration - Exam General Appearance: NAD, awake alert Eye: anicteric sclera ENT: normocephalic atraumatic, moist mucosa Neck: supple, symmetric, no lymphadenopathy Heart: no murmur, no gallops, no rubs Respiratory: CTAB, no wheezes, no rales, no ronchi Gastrointestinal: soft, non-tender, non-distended, normal bowel sounds, no guarding, no rigidity Extremities: no edema Skin: no lesions, no rashes Neurological: cranial nerve grossly intact, no focal deficits Musculoskeletal: generalized weakness Psychiatric: not oriented, flat affect Hosp A/P (1) Acute encephalopathy Code(s): G93.40 - ENCEPHALOPATHY, UNSPECIFIED Status: Acute (2) Candiduria Code(s): B37.49 - OTHER UROGENITAL CANDIDIASIS Status: Acute (3) Proteinuria Code(s): R80.9 - PROTEINURIA, UNSPECIFIED Status: Acute (4) Uncontrolled diabetes mellitus Code(s): E11.65 - TYPE 2 DIABETES MELLITUS WITH HYPERGLYCEMIA Status: Acute (5) Urinary retention Code(s): R33.9 - RETENTION OF URINE, UNSPECIFIED Status: Acute (6) Normal pressure hydrocephalus Code(s): G91.2 - (IDIOPATHIC) NORMAL PRESSURE HYDROCEPHALUS Status: Chronic (7) Seizure disorder Code(s): G40.909 - EPILEPSY, UNSP, NOT INTRACTABLE, WITHOUT STATUS EPILEPTICUS Status: Chronic (8) Syncope Code(s): R55 - SYNCOPE AND COLLAPSE Status: Acute (9) Atherosclerosis of aorta Code(s): I70.0 - ATHEROSCLEROSIS OF AORTA Status: Chronic (10) CKD (chronic kidney disease) stage 3, GFR 30-59 ml/min Code(s): N18.3 - CHRONIC KIDNEY DISEASE, STAGE 3 (MODERATE) Status: Chronic (11) Dementia Code(s): F03.90 - UNSPECIFIED DEMENTIA WITHOUT BEHAVIORAL DISTURBANCE Status: Chronic (12) GERD (gastroesophageal reflux disease) Code(s): K21.9 - GASTRO-ESOPHAGEAL REFLUX DISEASE WITHOUT ESOPHAGITIS Status: Chronic (13) HLD (hyperlipidemia) Code(s): E78.5 - HYPERLIPIDEMIA, UNSPECIFIED Status: Chronic (14) HTN (hypertension) Code(s): I10 - ESSENTIAL (PRIMARY) HYPERTENSION Status: Chronic (15) Hypothyroidism Code(s): E03.9 - HYPOTHYROIDISM, UNSPECIFIED Status: Chronic (16) Muscular deconditioning Code(s): R29.898 - OTH SYMPTOMS AND SIGNS INVOLVING THE MUSCULOSKELETAL SYSTEM Status: Chronic (17) Recurrent falls while walking Code(s): R29.6 - REPEATED FALLS Status: Chronic (18) Hypokalemia Code(s): E87.6 - HYPOKALEMIA Status: Resolved - Plan Plan: medical unit with telemetry stable for group home facility Patient did not respond to Diflucan for al, now responding to Micafungin, a 7 day course will be completed on 06/07 patient on antifungal therapy for urinary tract infection with al Neurology consultation, recommendations appreciated EEG negative patient with enlarged ventricles concerning for normal pressure hydrocephalus, however she is responding to Keppra and neurology recommends no further acute inpatient workup or treatment No shunting/ surgery indicated at this time per neurology MRI brain reviewed blood pressure control continue other home medications is able symptomatic therapy for nausea and vomiting as needed long-term prognosis for meaningful recovery is guarded
[2019-06-05] MEDS: Tamsulosin HCl 0.4 MG CAP PO SCH (21:15)
[2019-06-05] MEDS: Atorvastatin Calcium 40 MG TAB PO SCH (21:15)
[2019-06-06] MEDS: cloNIDine 0.1 MG TAB PO PRN (06:35)
[2019-06-06] MEDS: Levothyroxine Sodium 50 MCG TAB PO SCH (06:36)
[2019-06-06] MEDS: NIFEdipine XL 60 MG TAB PO SCH (08:39)
[2019-06-06] MEDS: Aspirin 325 mg Enteric Coated Tablet PO SCH (08:39)
[2019-06-06] MEDS: Hydrochlorothiazide 25 MG TAB PO SCH (08:39)
[2019-06-06] MEDS: Losartan 25 MG TAB PO SCH (08:40)
[2019-06-06] MEDS: Oxybutynin 5 MG TAB PO SCH ×2 (08:40→22:05)
[2019-06-06] MEDS: Carvedilol 6.25 MG TAB PO SCH ×2 (08:40→22:05)
[2019-06-06] MEDS: Enoxaparin Sodium 40 MG/0.4 ML SYRINGE SC SCH (08:41)
[2019-06-06] MEDS: levETIRAcetam 500 mg/5 ml Oral Solution PO SCH ×2 (08:41→22:06)
[2019-06-06] MEDS: Insulin Glargine 30 UNITS in Pre-Filled Syringe 1 EACH SC SCH (09:08)
--- NOTE | 2019-06-06 13:41 | PDOC.HOSPP ---
- Subjective Subjective: Seen and examined. Patient not eating much. Less cooperative. Patient denies pain. Not answering questions consistently. Hold long-acting insulin if the patient is not eating. I discussed the case with [employer] peer to peer who has denied [facility] facility placement and recommended that she is more appropriate for long-term care in a nursing unit without skilled needs. At this point I do agree that the patient cannot participate in daily physical therapy and is more [facility] appropriate. - Objective Vital Signs & Weight: Vital Signs (12 hours) Temp Pulse Pulse Resp BP BP BP 06/06/19 11:05 98 F 66 20 134/61 06/06/19 09:15 72 130/65 06/06/19 08:40 181/77 H 06/06/19 08:39 63 181/77 H 06/06/19 07:33 97.5 F L 63 20 181/77 H 06/06/19 06:35 198/93 H 06/06/19 03:36 97.8 F 62 18 189/82 H Pulse Ox 06/06/19 11:05 92 L 06/06/19 09:15 06/06/19 08:40 06/06/19 08:39 06/06/19 07:33 98 06/06/19 06:35 06/06/19 03:36 99 Weight Weight 164 lb 0.383 oz I&O: 06/05/19 06/06/19 06/07/19 06:59 06:59 06:59 Intake Total 550 550 Output Total 1150 1045 Balance -600 -495 Result Diagrams: 05/29/19 04:06 05/31/19 05:10 Additional Labs: Accuchecks 06/06/19 06/06/19 06/06/19 10:43 08:52 06:15 POC Glucose 128 H 93 125 H 06/05/19 06/05/19 06/04/19 20:00 17:22 02:33 POC Glucose 56 L* 106 71 Hospitalist ROS - Review of Systems All other systems reviewed; all pertinent +/- noted in HPI/Subj - Medication Medications: Active Medications Generic Name Dose Route Start Last Admin Trade Name Freq PRN Reason Stop Dose Admin Acetaminophen 650 mg 05/28/19 01:14 06/04/19 18:33 Tylenol PO 650 mg Q4H PRN Administration Headache/Fever/Mild Pain (1-3) Aspirin 325 mg 10/05/19 09:00 06/06/19 08:39 Ecotrin PO 325 mg DAILY [facility] Administration Atorvastatin Calcium 40 mg 05/28/19 21:00 06/05/19 21:15 Lipitor PO 40 mg HS [facility] Administration Carvedilol 6.25 mg 05/28/19 09:00 06/06/19 08:40 Coreg PO 6.25 mg BID [facility] Administration Cholecalciferol 1,000 units 05/28/19 09:00 06/06/19 08:39 Vitamin D3 PO 1,000 units DAILY [facility] Administration Clonidine 0.1 mg 05/28/19 04:29 06/06/19 06:35 Catapres PO 0.1 mg Q4H PRN Administration BP > 160/100 Enoxaparin Sodium 40 mg 05/28/19 09:00 06/06/19 08:41 Lovenox SC 40 mg 0900 [facility] Administration Hydrochlorothiazide 25 mg 05/28/19 09:00 06/06/19 08:39 Hydrochlorothiazide PO 25 mg DAILY [facility] Administration Micafungin Sodium 100 mg/ 100 mls @ 100 mls/hr 05/31/19 14:00 06/05/19 15:08 Sodium Chloride IVPB 100 mls Q24HR [facility] Administration Insulin Human Lispro 0 units 05/28/19 10:17 06/03/19 18:31 Humalog SC 3 unit .MILD SLIDING SCALE PRN Administration Mild Correctional Scale Levetiracetam 500 mg 05/29/19 21:00 06/06/19 08:41 Keppra Oral Solution PO 500 mg BID [facility] Administration Levothyroxine Sodium 50 mcg 05/28/19 06:00 06/06/19 06:36 Synthroid PO 50 mcg 0600 [facility] Administration Losartan Potassium 100 mg 05/28/19 09:00 06/06/19 08:40 Cozaar PO 100 mg DAILY [facility] Administration Nifedipine 60 mg 05/28/19 09:00 06/06/19 08:39 Procardia Xl PO 60 mg DAILY [facility] Administration Ondansetron HCl 4 mg 05/28/19 01:14 05/29/19 15:01 Zofran IVP 4 mg Q6H PRN Administration Nausea/Vomiting Oxybutynin Chloride 5 mg 05/28/19 09:00 06/06/19 08:40 Ditropan PO 5 mg BID [facility] Administration Pantoprazole Sodium 40 mg 05/28/19 09:00 06/06/19 08:40 Protonix PO 40 mg DAILY [facility] Administration Sodium Chloride 10 ml 05/28/19 09:00 06/06/19 08:41 Flush - Normal Saline IVF 10 ml Q12HR [facility] Administration Tamsulosin HCl 0.4 mg 05/29/19 21:00 06/05/19 21:15 Flomax PO 0.4 mg HS [facility] Administration - Exam General Appearance: NAD Eye: anicteric sclera ENT: normocephalic atraumatic, moist mucosa Neck: supple, symmetric, no lymphadenopathy Heart: no murmur, no gallops, no rubs Respiratory: CTAB, no wheezes, no rales, no ronchi Gastrointestinal: soft, non-tender, non-distended, no guarding, no rigidity Extremities: no edema Skin: no lesions, no rashes Neurological: cranial nerve grossly intact, no new deficit Musculoskeletal: generalized weakness Psychiatric: not oriented Hosp A/P (1) Acute encephalopathy Code(s): G93.40 - ENCEPHALOPATHY, UNSPECIFIED Status: Acute (2) Candiduria Code(s): B37.49 - OTHER UROGENITAL CANDIDIASIS Status: Acute (3) Proteinuria Code(s): R80.9 - PROTEINURIA, UNSPECIFIED Status: Acute (4) Uncontrolled diabetes mellitus Code(s): E11.65 - TYPE 2 DIABETES MELLITUS WITH HYPERGLYCEMIA Status: Acute (5) Urinary retention Code(s): R33.9 - RETENTION OF URINE, UNSPECIFIED Status: Acute (6) Normal pressure hydrocephalus Code(s): G91.2 - (IDIOPATHIC) NORMAL PRESSURE HYDROCEPHALUS Status: Chronic (7) Seizure disorder Code(s): G40.909 - EPILEPSY, UNSP, NOT INTRACTABLE, WITHOUT STATUS EPILEPTICUS Status: Chronic (8) Syncope Code(s): R55 - SYNCOPE AND COLLAPSE Status: Acute (9) Atherosclerosis of aorta Code(s): I70.0 - ATHEROSCLEROSIS OF AORTA Status: Chronic (10) CKD (chronic kidney disease) stage 3, GFR 30-59 ml/min Code(s): N18.3 - CHRONIC KIDNEY DISEASE, STAGE 3 (MODERATE) Status: Chronic (11) Dementia Code(s): F03.90 - UNSPECIFIED DEMENTIA WITHOUT BEHAVIORAL DISTURBANCE Status: Chronic (12) GERD (gastroesophageal reflux disease) Code(s): K21.9 - GASTRO-ESOPHAGEAL REFLUX DISEASE WITHOUT ESOPHAGITIS Status: Chronic (13) HLD (hyperlipidemia) Code(s): E78.5 - HYPERLIPIDEMIA, UNSPECIFIED Status: Chronic (14) HTN (hypertension) Code(s): I10 - ESSENTIAL (PRIMARY) HYPERTENSION Status: Chronic (15) Hypothyroidism Code(s): E03.9 - HYPOTHYROIDISM, UNSPECIFIED Status: Chronic (16) Muscular deconditioning Code(s): R29.898 - OTH SYMPTOMS AND SIGNS INVOLVING THE MUSCULOSKELETAL SYSTEM Status: Chronic (17) Recurrent falls while walking Code(s): R29.6 - REPEATED FALLS Status: Chronic (18) Hypokalemia Code(s): E87.6 - HYPOKALEMIA Status: Resolved - Plan Plan: medical unit with telemetry stable for lower level of care, intermediate card tender [facility] bed - [facility] has denied a [facility] facility as she does not participate in therapy Patient did not respond to Diflucan for al, now responding to Micafungin, a 7 day course will be completed on 06/07 patient on antifungal therapy for urinary tract infection with al Neurology consultation, recommendations appreciated EEG negative patient with enlarged ventricles concerning for normal pressure hydrocephalus, however she is responding to Keppra and neurology recommends no further acute inpatient workup or treatment No shunting/ surgery indicated at this time per neurology MRI brain reviewed blood pressure control continue other home medications is able symptomatic therapy for nausea and vomiting as needed long-term prognosis for meaningful recovery is guarded
[2019-06-06] MEDS: Micafungin 100 MG in Sodium Chloride 0.9% 100 ML IVPB SCH (14:32)
[2019-06-06] MEDS: HumaLOG 300 UNITS/3 ML VIAL SC PRN (17:36)
[2019-06-06] MEDS: Tamsulosin HCl 0.4 MG CAP PO SCH (22:05)
[2019-06-06] MEDS: Atorvastatin Calcium 40 MG TAB PO SCH (22:05)
[2019-06-06] MEDS: Insulin Glargine 15 UNITS in Pre-Filled Syringe SC SCH (22:06)
[2019-06-07] MEDS: Levothyroxine Sodium 50 MCG TAB PO SCH (06:43)
[2019-06-07] MEDS: Enoxaparin Sodium 40 MG/0.4 ML SYRINGE SC SCH (09:22)
[2019-06-07] MEDS: Losartan 25 MG TAB PO SCH (09:23)
[2019-06-07] MEDS: Aspirin 325 mg Enteric Coated Tablet PO SCH (09:24)
[2019-06-07] MEDS: Hydrochlorothiazide 25 MG TAB PO SCH (09:24)
[2019-06-07] MEDS: NIFEdipine XL 60 MG TAB PO SCH (09:24)
[2019-06-07] MEDS: Oxybutynin 5 MG TAB PO SCH ×2 (09:24→21:40)
[2019-06-07] MEDS: Carvedilol 6.25 MG TAB PO SCH ×2 (09:25→21:40)
[2019-06-07] MEDS: levETIRAcetam 500 mg/5 ml Oral Solution PO SCH ×2 (09:30→21:40)
[2019-06-07] MEDS: Insulin Glargine 15 UNITS in Pre-Filled Syringe SC SCH ×2 (10:06→21:40)
[2019-06-07] MEDS ORDERED: Losartan 25 MG TAB PO SCH (10:45)
[2019-06-07] MEDS: HumaLOG 300 UNITS/3 ML VIAL SC PRN ×2 (11:15→17:23)
[2019-06-07] MEDS: Micafungin 100 MG in Sodium Chloride 0.9% 100 ML IVPB SCH (14:12)
--- NOTE | 2019-06-07 15:15 | PDOC.HOSPP ---
- Subjective Subjective: Seen and examined. Clinically improved. Now back to her baseline mental status talking and conveying her needs. Poor appetite. Recommended INSTRUMENT SETTER to assist with meals. - Objective Vital Signs & Weight: Vital Signs (12 hours) Temp Pulse Pulse Pulse Resp BP BP 06/07/19 13:51 64 67 121/63 06/07/19 11:49 16 06/07/19 11:41 98.2 F 68 12 06/07/19 09:25 171/77 H 06/07/19 09:24 62 171/77 H 06/07/19 08:40 62 57 L 170/89 H 06/07/19 08:00 06/07/19 07:52 98.7 F 62 12 06/07/19 04:00 98.1 F 60 18 BP BP Pulse Ox 06/07/19 13:51 140/74 06/07/19 11:49 119/69 06/07/19 11:41 107/56 L 97 06/07/19 09:25 06/07/19 09:24 06/07/19 08:40 170/74 H 06/07/19 08:00 94 L 06/07/19 07:52 143/67 H 94 L 06/07/19 04:00 158/66 H 96 Weight Admit Weight 164 lb 0.383 oz Weight 164 lb 0.383 oz I&O: 06/06/19 06/07/19 06/08/19 06:59 06:59 06:59 Intake Total 550 240 240 Output Total 1045 2177 Balance -495 -1939 240 Result Diagrams: 05/29/19 04:06 05/31/19 05:10 Additional Labs: Accuchecks 06/07/19 06/07/19 06/06/19 10:40 06:11 20:03 POC Glucose 188 H 166 H 353 H 06/06/19 16:40 POC Glucose 187 H Hospitalist ROS - Review of Systems All other systems reviewed; all pertinent +/- noted in HPI/Subj - Medication Medications: Active Medications Generic Name Dose Route Start Last Admin Trade Name Freq PRN Reason Stop Dose Admin Acetaminophen 650 mg 05/28/19 01:14 06/04/19 18:33 Tylenol PO 650 mg Q4H PRN Administration Headache/Fever/Mild Pain (1-3) Aspirin 325 mg 05/28/19 09:00 06/07/19 09:24 Ecotrin PO 325 mg DAILY [facility] Administration Atorvastatin Calcium 40 mg 05/28/19 21:00 06/06/19 22:05 Lipitor PO 40 mg HS [facility] Administration Carvedilol 6.25 mg 05/28/19 09:00 06/07/19 09:25 Coreg PO 6.25 mg BID [facility] Administration Cholecalciferol 1,000 units 05/28/19 09:00 06/07/19 09:24 Vitamin D3 PO 1,000 units DAILY [facility] Administration Clonidine 0.1 mg 05/28/19 04:29 06/06/19 06:35 Catapres PO 0.1 mg Q4H PRN Administration BP > 160/100 Enoxaparin Sodium 40 mg 05/28/19 09:00 06/07/19 09:22 Lovenox SC 40 mg 0900 [facility] Administration Hydrochlorothiazide 25 mg 05/28/19 09:00 06/07/19 09:24 Hydrochlorothiazide PO 25 mg DAILY [facility] Administration Micafungin Sodium 100 mg/ 100 mls @ 100 mls/hr 05/31/19 14:00 06/07/19 14:12 Sodium Chloride IVPB 100 mls Q24HR [facility] Administration Insulin Glargine 15 units/ 0.15 mls @ 0 mls/hr 06/06/19 21:00 06/07/19 10:06 Miscellaneous Medication SC Not Given BID [facility] Insulin Human Lispro 0 units 05/28/19 10:17 06/07/19 11:15 Humalog SC 2 unit .MILD SLIDING SCALE PRN Administration Mild Correctional Scale Levetiracetam 500 mg 05/29/19 21:00 06/07/19 09:30 Keppra Oral Solution PO 500 mg BID [facility] Administration Levothyroxine Sodium 50 mcg 05/28/19 06:00 06/07/19 06:43 Synthroid PO Not Given 0600 [facility] Nifedipine 60 mg 05/28/19 09:00 06/07/19 09:24 Procardia Xl PO 60 mg DAILY [facility] Administration Ondansetron HCl 4 mg 05/28/19 01:14 05/29/19 15:01 Zofran IVP 4 mg Q6H PRN Administration Nausea/Vomiting Oxybutynin Chloride 5 mg 05/28/19 09:00 06/07/19 09:24 Ditropan PO 5 mg BID [facility] Administration Pantoprazole Sodium 40 mg 05/28/19 09:00 06/07/19 09:24 Protonix PO 40 mg DAILY [facility] Administration Sodium Chloride 10 ml 05/28/19 09:00 06/07/19 09:25 Flush - Normal Saline IVF 10 ml Q12HR [facility] Administration Tamsulosin HCl 0.4 mg 05/29/19 21:00 06/06/19 22:05 Flomax PO 0.4 mg HS [facility] Administration - Exam General Appearance: NAD, awake alert Eye: PERRL ENT: normocephalic atraumatic, moist mucosa Neck: supple, symmetric, no lymphadenopathy Heart: RRR, no murmur, normal peripheral pulses Respiratory: CTAB, no wheezes, no rales Gastrointestinal: non-tender, non-distended, no guarding, no rigidity Extremities: no edema Skin: no lesions, no rashes Neurological: cranial nerve grossly intact, no focal deficits Musculoskeletal: generalized weakness Psychiatric: oriented to person, flat affect Hosp A/P (1) Acute encephalopathy Code(s): G93.40 - ENCEPHALOPATHY, UNSPECIFIED Status: Acute (2) Candiduria Code(s): B37.49 - OTHER UROGENITAL CANDIDIASIS Status: Acute (3) Proteinuria Code(s): R80.9 - PROTEINURIA, UNSPECIFIED Status: Acute (4) Uncontrolled diabetes mellitus Code(s): E11.65 - TYPE 2 DIABETES MELLITUS WITH HYPERGLYCEMIA Status: Acute (5) Urinary retention Code(s): R33.9 - RETENTION OF URINE, UNSPECIFIED Status: Acute (6) Normal pressure hydrocephalus Code(s): G91.2 - (IDIOPATHIC) NORMAL PRESSURE HYDROCEPHALUS Status: Chronic (7) Seizure disorder Code(s): G40.909 - EPILEPSY, UNSP, NOT INTRACTABLE, WITHOUT STATUS EPILEPTICUS Status: Chronic (8) Syncope Code(s): R55 - SYNCOPE AND COLLAPSE Status: Acute (9) Atherosclerosis of aorta Code(s): I70.0 - ATHEROSCLEROSIS OF AORTA Status: Chronic (10) CKD (chronic kidney disease) stage 3, GFR 30-59 ml/min Code(s): N18.3 - CHRONIC KIDNEY DISEASE, STAGE 3 (MODERATE) Status: Chronic (11) Dementia Code(s): F03.90 - UNSPECIFIED DEMENTIA WITHOUT BEHAVIORAL DISTURBANCE Status: Chronic (12) GERD (gastroesophageal reflux disease) Code(s): K21.9 - GASTRO-ESOPHAGEAL REFLUX DISEASE WITHOUT ESOPHAGITIS Status: Chronic (13) HLD (hyperlipidemia) Code(s): E78.5 - HYPERLIPIDEMIA, UNSPECIFIED Status: Chronic (14) HTN (hypertension) Code(s): I10 - ESSENTIAL (PRIMARY) HYPERTENSION Status: Chronic (15) Hypothyroidism Code(s): E03.9 - HYPOTHYROIDISM, UNSPECIFIED Status: Chronic (16) Muscular deconditioning Code(s): R29.898 - OTH SYMPTOMS AND SIGNS INVOLVING THE MUSCULOSKELETAL SYSTEM Status: Chronic (17) Recurrent falls while walking Code(s): R29.6 - REPEATED FALLS Status: Chronic (18) Hypokalemia Code(s): E87.6 - HYPOKALEMIA Status: Resolved - Plan Plan: medical unit with telemetry stable for lower level of care, snf retirement bed - Willi has denied a [facility] facility as she does not participate in therapy Patient did not respond to Diflucan for al,was changed to Micafungin, a 7 day course completed on 06/07 patient on antifungal therapy for urinary tract infection with al Neurology consultation, recommendations appreciated EEG negative patient with enlarged ventricles concerning for normal pressure hydrocephalus, however she is responding to Keppra and neurology recommends no further acute inpatient workup or treatment No shunting/ surgery indicated at this time per neurology MRI brain reviewed blood pressure control continue other home medications is able symptomatic therapy for nausea and vomiting as needed long-term prognosis for meaningful recovery is guarded
[2019-06-07] MEDS: Tamsulosin HCl 0.4 MG CAP PO SCH (21:40)
[2019-06-07] MEDS: Atorvastatin Calcium 40 MG TAB PO SCH (21:40)
[2019-06-08] MEDS: Levothyroxine Sodium 50 MCG TAB PO SCH (05:37)
[2019-06-08] MEDS ORDERED: NIFEdipine XL 60 MG TAB PO SCH (07:28)
[2019-06-08] MEDS: levETIRAcetam 500 mg/5 ml Oral Solution PO SCH ×2 (08:35→20:51)
[2019-06-08] MEDS: Losartan 25 MG TAB PO SCH (08:37)
[2019-06-08] MEDS: Carvedilol 6.25 MG TAB PO SCH ×2 (08:37→20:51)
[2019-06-08] MEDS: Oxybutynin 5 MG TAB PO SCH ×2 (08:38→20:50)
[2019-06-08] MEDS: Aspirin 325 mg Enteric Coated Tablet PO SCH (08:39)
[2019-06-08] MEDS: NIFEdipine XL 90 MG TAB PO SCH (08:39)
[2019-06-08] MEDS: Hydrochlorothiazide 25 MG TAB PO SCH (08:39)
[2019-06-08] MEDS: Insulin Glargine 15 UNITS in Pre-Filled Syringe SC SCH ×2 (08:45→20:52)
[2019-06-08] MEDS: Enoxaparin Sodium 40 MG/0.4 ML SYRINGE SC SCH (08:45)
[2019-06-08] MEDS: HumaLOG 300 UNITS/3 ML VIAL SC PRN ×2 (11:31→17:52)
--- NOTE | 2019-06-08 12:54 | PDOC.HOSPP ---
- Subjective Subjective: Seen and examined. Answering questions today. Denies pain. Breathing well. Patient states she is hungry, her breakfast is at bedside and nursing staff has been helping her with this. - Objective Vital Signs & Weight: Vital Signs (12 hours) Temp Pulse Resp BP BP Pulse Ox 06/08/19 11:32 99.0 F 80 20 123/65 90 L 06/08/19 09:50 74 153/69 H 06/08/19 08:39 73 193/89 H 06/08/19 08:37 193/89 H 06/08/19 08:33 100 06/08/19 07:10 98 F 73 16 193/89 H 100 06/08/19 04:00 98.2 F 60 16 159/65 H 96 Weight Admit Weight 164 lb 0.383 oz Weight 164 lb 0.383 oz I&O: 06/07/19 06/08/19 06/09/19 06:59 06:59 06:59 Intake Total 240 740 Output Total 2177 600 Balance -1937 140 Result Diagrams: 05/29/19 04:06 05/31/19 05:10 Additional Labs: Accuchecks 06/08/19 06/08/19 06/07/19 10:46 05:58 20:04 POC Glucose 301 H 186 H 258 H 06/07/19 16:32 POC Glucose 374 H Hospitalist ROS - Review of Systems All other systems reviewed; all pertinent +/- noted in HPI/Subj - Medication Medications: Active Medications Generic Name Dose Route Start Last Admin Trade Name Freq PRN Reason Stop Dose Admin Acetaminophen 650 mg 05/28/19 01:14 06/04/19 18:33 Tylenol PO 650 mg Q4H PRN Administration Headache/Fever/Mild Pain (1-3) Aspirin 325 mg 05/28/19 09:00 06/08/19 08:39 Ecotrin PO 325 mg DAILY [facility] Administration Atorvastatin Calcium 40 mg 05/28/19 21:00 06/07/19 21:40 Lipitor PO 40 mg HS [facility] Administration Carvedilol 6.25 mg 05/28/19 09:00 06/08/19 08:37 Coreg PO 6.25 mg BID [facility] Administration Cholecalciferol 1,000 units 05/28/19 09:00 06/08/19 08:40 Vitamin D3 PO 1,000 units DAILY [facility] Administration Clonidine 0.1 mg 05/28/19 04:29 06/06/19 06:35 Catapres PO 0.1 mg Q4H PRN Administration BP > 160/100 Enoxaparin Sodium 40 mg 05/28/19 09:00 06/08/19 08:45 Lovenox SC 40 mg 0900 [facility] Administration Hydrochlorothiazide 25 mg 05/28/19 09:00 06/08/19 08:39 Hydrochlorothiazide PO 25 mg DAILY [facility] Administration Insulin Glargine 15 units/ 0.15 mls @ 0 mls/hr 06/06/19 21:00 06/08/19 08:45 Miscellaneous Medication SC 0.15 mls BID [facility] Administration Insulin Human Lispro 0 units 05/28/19 10:17 06/08/19 11:31 Humalog SC 5 unit .MILD SLIDING SCALE PRN Administration Mild Correctional Scale Levetiracetam 500 mg 05/29/19 21:00 06/08/19 08:35 Keppra Oral Solution PO 500 mg BID [facility] Administration Levothyroxine Sodium 50 mcg 05/28/19 06:00 06/08/19 05:37 Synthroid PO 50 mcg 0600 [facility] Administration Losartan Potassium 100 mg 06/08/19 09:00 06/08/19 08:37 Cozaar PO 100 mg DAILY [facility] Administration Nifedipine 90 mg 06/08/19 09:00 06/08/19 08:39 Procardia Xl PO 90 mg DAILY [facility] Administration Ondansetron HCl 4 mg 05/28/19 01:14 05/29/19 15:01 Zofran IVP 4 mg Q6H PRN Administration Nausea/Vomiting Oxybutynin Chloride 5 mg 05/28/19 09:00 06/08/19 08:38 Ditropan PO 5 mg BID [facility] Administration Pantoprazole Sodium 40 mg 05/28/19 09:00 06/08/19 08:38 Protonix PO 40 mg DAILY [facility] Administration Sodium Chloride 10 ml 05/28/19 09:00 06/08/19 08:46 Flush - Normal Saline IVF 10 ml Q12HR [facility] Administration Tamsulosin HCl 0.4 mg 05/29/19 21:00 06/07/19 21:40 Flomax PO 0.4 mg HS [facility] Administration - Exam General Appearance: NAD, awake alert Eye: anicteric sclera ENT: normocephalic atraumatic, moist mucosa Neck: supple, symmetric, no lymphadenopathy Heart: no murmur, no gallops, no rubs Respiratory: CTAB, no wheezes, no rales, no ronchi Gastrointestinal: soft, non-tender, no guarding, no rigidity Extremities: no edema Skin: no lesions, no rashes Neurological: cranial nerve grossly intact, no focal deficits Musculoskeletal: generalized weakness Psychiatric: oriented to person, flat affect Hosp A/P (1) Acute encephalopathy Code(s): G93.40 - ENCEPHALOPATHY, UNSPECIFIED Status: Acute (2) Candiduria Code(s): B37.49 - OTHER UROGENITAL CANDIDIASIS Status: Acute (3) Proteinuria Code(s): R80.9 - PROTEINURIA, UNSPECIFIED Status: Acute (4) Uncontrolled diabetes mellitus Code(s): E11.65 - TYPE 2 DIABETES MELLITUS WITH HYPERGLYCEMIA Status: Acute (5) Urinary retention Code(s): R33.9 - RETENTION OF URINE, UNSPECIFIED Status: Acute (6) Normal pressure hydrocephalus Code(s): G91.2 - (IDIOPATHIC) NORMAL PRESSURE HYDROCEPHALUS Status: Chronic (7) Seizure disorder Code(s): G40.909 - EPILEPSY, UNSP, NOT INTRACTABLE, WITHOUT STATUS EPILEPTICUS Status: Chronic (8) Syncope Code(s): R55 - SYNCOPE AND COLLAPSE Status: Acute (9) Atherosclerosis of aorta Code(s): I70.0 - ATHEROSCLEROSIS OF AORTA Status: Chronic (10) CKD (chronic kidney disease) stage 3, GFR 30-59 ml/min Code(s): N18.3 - CHRONIC KIDNEY DISEASE, STAGE 3 (MODERATE) Status: Chronic (11) Dementia Code(s): F03.90 - UNSPECIFIED DEMENTIA WITHOUT BEHAVIORAL DISTURBANCE Status: Chronic (12) GERD (gastroesophageal reflux disease) Code(s): K21.9 - GASTRO-ESOPHAGEAL REFLUX DISEASE WITHOUT ESOPHAGITIS Status: Chronic (13) HLD (hyperlipidemia) Code(s): E78.5 - HYPERLIPIDEMIA, UNSPECIFIED Status: Chronic (14) HTN (hypertension) Code(s): I10 - ESSENTIAL (PRIMARY) HYPERTENSION Status: Chronic (15) Hypothyroidism Code(s): E03.9 - HYPOTHYROIDISM, UNSPECIFIED Status: Chronic (16) Muscular deconditioning Code(s): R29.898 - OTH SYMPTOMS AND SIGNS INVOLVING THE MUSCULOSKELETAL SYSTEM Status: Chronic (17) Recurrent falls while walking Code(s): R29.6 - REPEATED FALLS Status: Chronic (18) Hypokalemia Code(s): E87.6 - HYPOKALEMIA Status: Resolved - Plan Plan: medical unit with telemetry stable for lower level of care, [employer]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 - Willi has denied a long-term facility as she does not participate in therapy Patient did not respond to Diflucan for al,was changed to Micafungin, a 7 day course completed on 06/07 patient on antifungal therapy for urinary tract infection with al Neurology consultation, recommendations appreciated EEG negative patient with enlarged ventricles concerning for normal pressure hydrocephalus, however she is responding to Keppra and neurology recommends no further acute inpatient workup or treatment No shunting/ surgery indicated at this time per neurology MRI brain reviewed Donepezil for dementia blood pressure control, increase Nifedipine continue other home medications is able symptomatic therapy for nausea and vomiting as needed long-term prognosis for meaningful recovery is guarded
[2019-06-08] MEDS: Donepezil HCl 5 MG TAB PO SCH (20:50)
[2019-06-08] MEDS: Atorvastatin Calcium 40 MG TAB PO SCH (20:50)
[2019-06-08] MEDS: Tamsulosin HCl 0.4 MG CAP PO SCH (20:50)
[2019-06-09] MEDS: Levothyroxine Sodium 50 MCG TAB PO SCH ×2 (06:37→06:47)
[2019-06-09] MEDS: HumaLOG 300 UNITS/3 ML VIAL SC PRN ×2 (06:47→17:43)
[2019-06-09] MEDS: Enoxaparin Sodium 40 MG/0.4 ML SYRINGE SC SCH (11:56)
[2019-06-09] MEDS: Insulin Glargine 15 UNITS in Pre-Filled Syringe SC SCH ×2 (11:57→20:45)
[2019-06-09] MEDS: levETIRAcetam 500 mg/5 ml Oral Solution PO SCH ×2 (11:57→20:45)
[2019-06-09] MEDS: Losartan 25 MG TAB PO SCH (11:57)
[2019-06-09] MEDS: Carvedilol 6.25 MG TAB PO SCH ×2 (11:57→20:44)
[2019-06-09] MEDS: Hydrochlorothiazide 25 MG TAB PO SCH (11:58)
[2019-06-09] MEDS: Aspirin 325 mg Enteric Coated Tablet PO SCH (11:58)
[2019-06-09] MEDS: NIFEdipine XL 90 MG TAB PO SCH (11:58)
[2019-06-09] MEDS: Oxybutynin 5 MG TAB PO SCH ×2 (11:58→20:44)
[2019-06-09] MEDS: Acetaminophen 325 MG TAB PO PRN (13:29)
--- NOTE | 2019-06-09 15:27 | PDOC.HOSPP ---
- Subjective Encounter Date: 06/09/19 Encounter Time: 15:25 Subjective: No new complaint - Objective Vital Signs & Weight: Vital Signs (12 hours) Temp Pulse Pulse Pulse Pulse Resp BP 06/09/19 13:29 80 80 72 06/09/19 12:00 98.1 F 66 16 06/09/19 11:58 69 170/80 H 06/09/19 11:57 147/83 H 06/09/19 08:00 97.8 F 69 12 06/09/19 03:34 98.5 F 66 18 BP BP BP BP Pulse Ox 06/09/19 13:29 112/83 114/67 110/57 L 06/09/19 12:00 170/80 H 94 L 06/09/19 11:58 06/09/19 11:57 06/09/19 08:00 139/94 H 98 06/09/19 03:34 150/80 H 96 Weight Admit Weight 164 lb 0.383 oz Weight 164 lb 0.383 oz I&O: 06/08/19 06/09/19 06/10/19 06:59 06:59 06:59 Intake Total 740 50 Output Total 600 800 Balance 140 -800 50 Result Diagrams: 05/29/19 04:06 05/31/19 05:10 Additional Labs: Accuchecks 06/09/19 06/09/19 06/08/19 10:29 06:23 19:27 POC Glucose 159 H 164 H 208 H 06/08/19 16:47 POC Glucose 215 H Hospitalist ROS - Medication Medications: Active Medications Generic Name Dose Route Start Last Admin Trade Name Bashir PRN Reason Stop Dose Admin Acetaminophen 650 mg 05/28/19 01:14 06/09/19 13:29 Tylenol PO 650 mg Q4H PRN Administration Headache/Fever/Mild Pain (1-3) Aspirin 325 mg 05/28/19 09:00 06/09/19 11:58 Ecotrin PO 325 mg DAILY GENESIS Administration Atorvastatin Calcium 40 mg 05/28/19 21:00 06/08/19 20:50 Lipitor PO 40 mg HS GENESIS Administration Carvedilol 6.25 mg 05/28/19 09:00 06/09/19 11:57 Coreg PO 6.25 mg BID GENESIS Administration Cholecalciferol 1,000 units 05/28/19 09:00 06/09/19 11:58 Vitamin D3 PO 1,000 units DAILY GENESIS Administration Clonidine 0.1 mg 05/28/19 04:29 06/06/19 06:35 Catapres PO 0.1 mg Q4H PRN Administration BP > 160/100 Donepezil HCl 5 mg 06/08/19 21:00 06/08/19 20:50 Aricept PO 5 mg HS GENESIS Administration Enoxaparin Sodium 40 mg 05/28/19 09:00 06/09/19 11:56 Lovenox SC 40 mg 0900 GENESIS Administration Hydrochlorothiazide 25 mg 05/28/19 09:00 06/09/19 11:58 Hydrochlorothiazide PO 25 mg DAILY GENESIS Administration Insulin Glargine 15 units/ 0.15 mls @ 0 mls/hr 06/06/19 21:00 06/09/19 11:57 Miscellaneous Medication SC 0.15 mls BID GENESIS Administration Insulin Human Lispro 0 units 05/28/19 10:17 06/09/19 06:47 Humalog SC 2 unit .MILD SLIDING SCALE PRN Administration Mild Correctional Scale Levetiracetam 500 mg 05/29/19 21:00 06/09/19 11:57 Keppra Oral Solution PO 500 mg BID GENESIS Administration Levothyroxine Sodium 50 mcg 05/28/19 06:00 06/09/19 06:37 Synthroid PO Not Given 0600 GENESIS Losartan Potassium 100 mg 06/08/19 09:00 06/09/19 11:57 Cozaar PO 100 mg DAILY GENESIS Administration Nifedipine 90 mg 06/08/19 09:00 06/09/19 11:58 Procardia Xl PO 90 mg DAILY GENESIS Administration Ondansetron HCl 4 mg 05/28/19 01:14 05/29/19 15:01 Zofran IVP 4 mg Q6H PRN Administration Nausea/Vomiting Oxybutynin Chloride 5 mg 05/28/19 09:00 06/09/19 11:58 Ditropan PO 5 mg BID GENESIS Administration Pantoprazole Sodium 40 mg 05/28/19 09:00 06/09/19 11:57 Protonix PO 40 mg DAILY GENESIS Administration Sodium Chloride 10 ml 05/28/19 09:00 06/09/19 11:59 Flush - Normal Saline IVF 10 ml Q12HR GENESIS Administration Tamsulosin HCl 0.4 mg 05/29/19 21:00 06/08/19 20:50 Flomax PO 0.4 mg HS GENESIS Administration - Exam General Appearance: NAD, awake alert, ill appearing Eye: PERRL, anicteric sclera, scleral icterus ENT: normocephalic atraumatic, no oropharyngeal lesions, moist mucosa, dry oral mucosa Neck: supple, symmetric, no JVD, no thyromegaly, no lymphadenopathy, no carotid bruit, JVD Heart: RRR, no murmur, no gallops, no rubs, normal peripheral pulses, irregular , diminshed peripheral pulses, murmur present, II/IV, III/IV Respiratory: CTAB, no wheezes, no rales, no ronchi, normal chest expansion, no tachypnea, normal percussion, rales, rhonchi, tachypneic, wheezes Gastrointestinal: soft, non-tender, non-distended, normal bowel sounds, no palpable masses, no hepatomegaly, no splenomegaly, no bruit, no guarding, no rigidity, tender to palpation, distended, diminished bowl sounds, voluntary guarding Extremities: no cyanosis, no clubbing, no edema, 1+ LE edema, 2+ LE edema, clubbing Skin: normal turgor, no lesions, no rashes, tenting Neurological: cranial nerve grossly intact, normal sensation to touch, no weakness, no focal deficits, no new deficit, facial droop, hemiplegia, speech deficit, vision deficit Musculoskeletal: normal tone, normal strength, no muscle wasting, generalized weakness, diffuse muscle atrophy Hosp A/P (1) Acute metabolic encephalopathy Code(s): G93.41 - METABOLIC ENCEPHALOPATHY Status: Acute (2) Uncontrolled diabetes mellitus Code(s): E11.65 - TYPE 2 DIABETES MELLITUS WITH HYPERGLYCEMIA Status: Acute - Plan criminal justice social worker (SNF declined by the insurance. Await further planning by family and the case management)
[2019-06-09] MEDS: Tamsulosin HCl 0.4 MG CAP PO SCH (20:44)
[2019-06-09] MEDS: Donepezil HCl 5 MG TAB PO SCH (20:44)
[2019-06-09] MEDS: Atorvastatin Calcium 40 MG TAB PO SCH (20:45)
[2019-06-10] MEDS: Levothyroxine Sodium 50 MCG TAB PO SCH (06:17)
[2019-06-10] MEDS: HumaLOG 300 UNITS/3 ML VIAL SC PRN ×2 (06:17→11:37)
[2019-06-10] MEDS: Carvedilol 6.25 MG TAB PO SCH ×2 (09:58→21:26)
[2019-06-10] MEDS: NIFEdipine XL 90 MG TAB PO SCH (09:59)
[2019-06-10] MEDS: Losartan 25 MG TAB PO SCH (09:59)
[2019-06-10] MEDS: Aspirin 325 mg Enteric Coated Tablet PO SCH (10:02)
[2019-06-10] MEDS: Hydrochlorothiazide 25 MG TAB PO SCH (10:02)
[2019-06-10] MEDS: Insulin Glargine 15 UNITS in Pre-Filled Syringe SC SCH ×2 (10:02→21:27)
[2019-06-10] MEDS: Enoxaparin Sodium 40 MG/0.4 ML SYRINGE SC SCH (10:02)
[2019-06-10] MEDS: levETIRAcetam 500 mg/5 ml Oral Solution PO SCH ×2 (10:03→21:26)
[2019-06-10] MEDS: Oxybutynin 5 MG TAB PO SCH ×2 (10:04→21:26)
--- NOTE | 2019-06-10 11:40 | PDOC.HOSPP ---
- Subjective Encounter Date: 06/10/19 Encounter Time: 11:39 Subjective: No new complaints, family appealing for the SNF as the [employer] declined. - Objective Vital Signs & Weight: Vital Signs (12 hours) Temp Pulse Resp BP BP Pulse Ox 06/10/19 11:13 98.2 F 63 14 119/56 L 97 06/10/19 09:59 64 161/83 H 06/10/19 09:58 161/83 H 06/10/19 07:52 98.6 F 64 16 160/67 H 95 06/10/19 03:43 97.4 F L 62 20 143/66 H 97 Weight Admit Weight 164 lb 0.383 oz Weight 164 lb 0.383 oz I&O: 06/09/19 06/10/19 06/11/19 06:59 06:59 06:59 Intake Total 50 Output Total 800 500 Balance -800 -450 Result Diagrams: 05/29/19 04:06 05/31/19 05:10 Additional Labs: Accuchecks 06/10/19 06/10/19 06/09/19 10:45 05:58 19:29 POC Glucose 172 H 342 H 254 H 06/09/19 16:38 POC Glucose 279 H Hospitalist ROS - Medication Medications: Active Medications Generic Name Dose Route Start Last Admin Trade Name Freq PRN Reason Stop Dose Admin Acetaminophen 650 mg 05/28/19 01:14 06/09/19 13:29 Tylenol PO 650 mg Q4H PRN Administration Headache/Fever/Mild Pain (1-3) Aspirin 325 mg 05/28/19 09:00 06/10/19 10:02 Ecotrin PO 325 mg DAILY GENESIS Administration Atorvastatin Calcium 40 mg 05/28/19 21:00 06/09/19 20:45 Lipitor PO 40 mg HS GENESIS Administration Carvedilol 6.25 mg 05/28/19 09:00 06/10/19 09:58 Coreg PO 6.25 mg BID GENESIS Administration Cholecalciferol 1,000 units 05/28/19 09:00 06/10/19 10:02 Vitamin D3 PO 1,000 units DAILY GENESIS Administration Clonidine 0.1 mg 05/28/19 04:29 06/06/19 06:35 Catapres PO 0.1 mg Q4H PRN Administration BP > 160/100 Donepezil HCl 5 mg 06/08/19 21:00 06/09/19 20:44 Aricept PO 5 mg HS GENESIS Administration Enoxaparin Sodium 40 mg 05/28/19 09:00 06/10/19 10:02 Lovenox SC 40 mg 0900 GENESIS Administration Hydrochlorothiazide 25 mg 05/28/19 09:00 06/10/19 10:02 Hydrochlorothiazide PO 25 mg DAILY GENESIS Administration Insulin Glargine 15 units/ 0.15 mls @ 0 mls/hr 06/06/19 21:00 06/10/19 10:02 Miscellaneous Medication SC 0.15 mls BID GENESIS Administration Insulin Human Lispro 0 units 05/28/19 10:17 06/10/19 06:17 Humalog SC 5 unit .MILD SLIDING SCALE PRN Administration Mild Correctional Scale Levetiracetam 500 mg 05/29/19 21:00 06/10/19 10:03 Keppra Oral Solution PO 500 mg BID GENESIS Administration Levothyroxine Sodium 50 mcg 05/28/19 06:00 06/10/19 06:17 Synthroid PO 50 mcg 0600 GENESIS Administration Losartan Potassium 100 mg 06/08/19 09:00 06/10/19 09:59 Cozaar PO 100 mg DAILY GENESIS Administration Nifedipine 90 mg 06/08/19 09:00 06/10/19 09:59 Procardia Xl PO 90 mg DAILY GENESIS Administration Ondansetron HCl 4 mg 05/28/19 01:14 05/29/19 15:01 Zofran IVP 4 mg Q6H PRN Administration Nausea/Vomiting Oxybutynin Chloride 5 mg 05/28/19 09:00 06/10/19 10:04 Ditropan PO 5 mg BID GENESIS Administration Pantoprazole Sodium 40 mg 05/28/19 09:00 06/10/19 09:59 Protonix PO 40 mg DAILY GENESIS Administration Sodium Chloride 10 ml 05/28/19 09:00 06/10/19 10:05 Flush - Normal Saline IVF Not Given Q12HR [facility] Tamsulosin HCl 0.4 mg 05/29/19 21:00 06/09/19 20:44 Flomax PO 0.4 mg HS GENESIS Administration - Exam General Appearance: NAD, awake alert, ill appearing Eye: PERRL, anicteric sclera, scleral icterus ENT: normocephalic atraumatic, no oropharyngeal lesions, moist mucosa, dry oral mucosa Neck: supple, symmetric, no JVD, no thyromegaly, no lymphadenopathy, no carotid bruit, JVD Heart: RRR, no murmur, no gallops, no rubs, normal peripheral pulses, irregular , diminshed peripheral pulses, murmur present, II/IV, III/IV Respiratory: CTAB, no wheezes, no rales, no ronchi, normal chest expansion, no tachypnea, normal percussion, rales, rhonchi, tachypneic, wheezes Gastrointestinal: soft, non-tender, non-distended, normal bowel sounds, no palpable masses, no hepatomegaly, no splenomegaly, no bruit, no guarding, no rigidity, tender to palpation, distended, diminished bowl sounds, voluntary guarding Extremities: no cyanosis, no clubbing, no edema, 1+ LE edema, 2+ LE edema, clubbing Skin: normal turgor, no lesions, no rashes, tenting Neurological: cranial nerve grossly intact, normal sensation to touch, no weakness, no focal deficits, no new deficit, facial droop, hemiplegia, speech deficit, vision deficit Psychiatric: normal affect, normal behavior, A&O x 3, oriented to person, oriented to place, oriented to time, not oriented, flat affect, somnolent, lethargic Hosp A/P (1) Acute metabolic encephalopathy Code(s): G93.41 - METABOLIC ENCEPHALOPATHY Status: Acute (2) Uncontrolled diabetes mellitus Code(s): E11.65 - TYPE 2 DIABETES MELLITUS WITH HYPERGLYCEMIA Status: Acute - Plan hospital social worker ([employer] insurance aproval for SNf, the family appealed.)
[2019-06-10] MEDS: Donepezil HCl 5 MG TAB PO SCH (21:26)
[2019-06-10] MEDS: Atorvastatin Calcium 40 MG TAB PO SCH (21:26)
[2019-06-10] MEDS: Tamsulosin HCl 0.4 MG CAP PO SCH (21:26)
[2019-06-11] MEDS: Levothyroxine Sodium 50 MCG TAB PO SCH (05:04)
[2019-06-11] MEDS: HumaLOG 300 UNITS/3 ML VIAL SC PRN ×4 (06:37→21:41)
[2019-06-11] MEDS: levETIRAcetam 500 mg/5 ml Oral Solution PO SCH ×2 (09:33→21:40)
[2019-06-11] MEDS: Hydrochlorothiazide 25 MG TAB PO SCH (09:34)
[2019-06-11] MEDS: NIFEdipine XL 90 MG TAB PO SCH (09:34)
[2019-06-11] MEDS: Insulin Glargine 15 UNITS in Pre-Filled Syringe SC SCH ×2 (09:34→21:41)
[2019-06-11] MEDS: Enoxaparin Sodium 40 MG/0.4 ML SYRINGE SC SCH (09:34)
[2019-06-11] MEDS: Carvedilol 6.25 MG TAB PO SCH ×2 (09:34→21:40)
[2019-06-11] MEDS: Aspirin 325 mg Enteric Coated Tablet PO SCH (09:35)
[2019-06-11] MEDS: Losartan 25 MG TAB PO SCH (09:35)
[2019-06-11] MEDS: Oxybutynin 5 MG TAB PO SCH (10:36)
--- NOTE | 2019-06-11 11:32 | PDOC.HOSPP ---
- Subjective Encounter Date: 06/11/19 Encounter Time: 07:45 - Objective Vital Signs & Weight: Vital Signs (12 hours) Temp Pulse Resp BP Pulse Ox 06/11/19 09:34 55 L 06/11/19 08:59 98 06/11/19 07:34 97.9 F 55 L 16 158/73 H 98 06/11/19 03:44 98.1 F 57 L 16 145/66 H 96 06/10/19 23:38 98.2 F 73 18 145/72 H 95 Weight Admit Weight 164 lb 0.383 oz Weight 164 lb 0.383 oz I&O: 06/10/19 06/11/19 06/12/19 06:59 06:59 06:59 Intake Total 50 840 Output Total 500 800 Balance -450 40 Result Diagrams: 05/29/19 04:06 05/31/19 05:10 Additional Labs: Accuchecks 06/11/19 06/11/19 06/10/19 10:43 06:04 19:56 POC Glucose 201 H 243 H 136 H 06/10/19 16:32 POC Glucose 144 H Hospitalist ROS - Medication Medications: Active Medications Generic Name Dose Route Start Last Admin Trade Name Freq PRN Reason Stop Dose Admin Acetaminophen 650 mg 05/28/19 01:14 06/09/19 13:29 Tylenol PO 650 mg Q4H PRN Administration Headache/Fever/Mild Pain (1-3) Aspirin 325 mg 05/28/19 09:00 06/11/19 09:35 Ecotrin PO 325 mg DAILY GENESIS Administration Atorvastatin Calcium 40 mg 05/28/19 21:00 06/10/19 21:26 Lipitor PO 40 mg HS GENESIS Administration Carvedilol 6.25 mg 05/28/19 09:00 06/11/19 09:34 Coreg PO 6.25 mg BID GENESIS Administration Cholecalciferol 1,000 units 05/28/19 09:00 06/11/19 09:34 Vitamin D3 PO 1,000 units DAILY GENESIS Administration Clonidine 0.1 mg 05/28/19 04:29 06/06/19 06:35 Catapres PO 0.1 mg Q4H PRN Administration BP > 160/100 Donepezil HCl 5 mg 06/08/19 21:00 06/10/19 21:26 Aricept PO 5 mg HS GENESIS Administration Enoxaparin Sodium 40 mg 10/05/19 09:00 06/11/19 09:34 Lovenox SC 40 mg 0900 GENESIS Administration Hydrochlorothiazide 25 mg 05/28/19 09:00 06/11/19 09:34 Hydrochlorothiazide PO 25 mg DAILY GENESIS Administration Insulin Glargine 15 units/ 0.15 mls @ 0 mls/hr 06/06/19 21:00 06/11/19 09:34 Miscellaneous Medication SC 0.15 mls BID GENESIS Administration Insulin Human Lispro 0 units 05/28/19 10:17 06/11/19 11:24 Humalog SC 3 unit .MILD SLIDING SCALE PRN Administration Mild Correctional Scale Levetiracetam 500 mg 05/29/19 21:00 06/11/19 09:33 Keppra Oral Solution PO 500 mg BID GENESIS Administration Levothyroxine Sodium 50 mcg 05/28/19 06:00 06/11/19 05:04 Synthroid PO 50 mcg 0600 GENESIS Administration Losartan Potassium 100 mg 06/08/19 09:00 06/11/19 09:35 Cozaar PO 100 mg DAILY GENESIS Administration Nifedipine 90 mg 06/08/19 09:00 06/11/19 09:34 Procardia Xl PO 90 mg DAILY GENESIS Administration Ondansetron HCl 4 mg 05/28/19 01:14 05/29/19 15:01 Zofran IVP 4 mg Q6H PRN Administration Nausea/Vomiting Oxybutynin Chloride 5 mg 05/28/19 09:00 06/11/19 10:36 Ditropan PO 5 mg BID GENESIS Administration Pantoprazole Sodium 40 mg 05/28/19 09:00 06/11/19 09:34 Protonix PO 40 mg DAILY GENESIS Administration Sodium Chloride 10 ml 05/28/19 09:00 06/11/19 10:15 Flush - Normal Saline IVF Not Given Q12HR [facility] Tamsulosin HCl 0.4 mg 05/29/19 21:00 06/10/19 21:26 Flomax PO 0.4 mg HS GENESIS Administration - Exam General Appearance: NAD, awake alert ENT: moist mucosa Neck: no JVD Heart: RRR Respiratory: CTAB Gastrointestinal: soft Extremities: no edema Neurological: no focal deficits Hosp A/P (1) Acute encephalopathy Code(s): G93.40 - ENCEPHALOPATHY, UNSPECIFIED Status: Acute (2) Candiduria Code(s): B37.49 - OTHER UROGENITAL CANDIDIASIS Status: Acute (3) Uncontrolled diabetes mellitus Code(s): E11.65 - TYPE 2 DIABETES MELLITUS WITH HYPERGLYCEMIA Status: Acute (4) Urinary retention Code(s): R33.9 - RETENTION OF URINE, UNSPECIFIED Status: Acute Plan: Has been urinating. Check bladder scan. (5) Normal pressure hydrocephalus Code(s): G91.2 - (IDIOPATHIC) NORMAL PRESSURE HYDROCEPHALUS Status: Chronic (6) Seizure disorder Code(s): G40.909 - EPILEPSY, UNSP, NOT INTRACTABLE, WITHOUT STATUS EPILEPTICUS Status: Chronic - Plan Awaiting placement... Continue current therapy..
[2019-06-11] MEDS ORDERED: Bisacodyl 10 MG SUPP PR PRN (15:30)
--- NOTE | 2019-06-11 16:52 | ULT ---
ULTRASOUND RETROPERITONEUM COMPLETE: (RENAL) DATE: 06/11/2019 HISTORY: 71-year-old female with urinary retention. FINDINGS: Visualization of kidneys is limited because of patient's condition, body habitus, position, and shado wing by overlying bowel gas. The right kidney measures 9 x 4.5 x 4 cm. The left kidney measures 9.5 x 5 x 5 cm. Both kidneys have normal parenchymal echogenicity. There is no hydronephrosis. No large renal cystic or solid renal lesion is identified. There is a Forte catheter in an empty urinary bladder. IMPRESSION: 1) No hydronephrosis. 2) Forte catheter within empty urinary bladder.
--- NOTE | 2019-06-11 20:21 | CON ---
DATE OF CONSULTATION: PRIMARY CARE PHYSICIAN: Laila Torres, nurse practitioner. REASON FOR CONSULTATION: Urinary retention. HISTORY OF PRESENT ILLNESS: Ms. Stanford is a 74-year-old female with history of lumbar stenosis, diabetes, TIA, hypertension, dementia, who is admitted for mental status changes. The patient's daughter and niece at bedside. Related she normally resides in a private residence, ambulatory with walker. The patient does have baseline dementia, which waxes and wanes. Due to change in her mental status, they brought her to the emergency room as she has difficulty communicating. The patient was seen by Neurology, a CT of the brain negative, started on Keppra. Diminished verbal output is of unclear etiology. Medical neurologic workup in progress. Daughter relates that she does not have significant incontinence or recurrent UTI. As there was decreased urine output, she was scanned and which there was approximately 861 mL and she has been straight cath'd. While I am examining her, nurse did say that she voided spontaneously on her own. Bladder scan obtained, demonstrates 450 mL. Therefore, I did inform the nurse to replace Forte catheter due to significant PVR of 861 mL history. The patient's family denies prior history of urinary retention to their knowledge. The patient herself is unable to provide her subjective history due to mental status changes and encephalopathy. PAST MEDICAL HISTORY: Diabetes, hypertension, TIA, L4-5 mild stenosis. PAST SURGICAL HISTORY: Appendectomy, hysterectomy, left shoulder surgery, left arm, right shoulder surgery, carpal tunnel surgery of the left hand. PSYCHIATRIC HISTORY: Dementia. FAMILY HISTORY: Noncontributory. SOCIAL HISTORY: Denies illicit drug use. Former smoker, quit about 10 years ago. ALLERGIES: ALLERGIC TO PENICILLIN AND IODINE. REVIEW OF SYSTEMS: A 10-point review of systems as above, obtained per chart as she is unable to provide her own subjective history. CURRENT MEDICATIONS: Include aspirin 325, carvedilol, vitamin D3, clonidine, glucagon, hydrochlorothiazide, insulin, Keppra, levothyroxine, nifedipine, losartan, Procardia, Zofran p.r.n. Tamsulosin initiated by the hospitalist. She was previously on oxybutynin, which I discontinued. PHYSICAL EXAMINATION: VITAL SIGNS: Stable. GENERAL: She is cooperative to physical exam, aphasic. Right upper extremity appears to be somewhat contracted. HEENT: Grossly unremarkable. HEART: Regular rate. LUNGS: Clear. ABDOMEN: Soft, protuberant, obese. Incision noted consistent with open appendectomy. No rigidity. No rebound. EXTREMITIES: Although her right upper extremity is contracted, she is able to straighten and raise. Sensation appears to be intact. NEUROLOGIC: Somewhat suboptimal as she is not cooperative. PSYCHIATRIC: Appears to be flat affect. : Demonstrates vaginal atrophy. Meatus is grossly visible with no significant prolapse of concern. PERTINENT LABORATORY DATA AND IMAGING: White count on admission is 16, currently 11; hemoglobin 12; platelet 179. Creatinine is 1.2; on admission, her creatinine was 1.6. Her baseline creatinine is variable from 0.8 to 1.9. Her hemoglobin A1c in July 2016 is 11, currently in May 2019 is 9.6. UA demonstrates, which is catheterized specimen, yellow, 7 to 10 rbc's, rare bacteria, greater than 1000 glucose, 1+ yeast. Urine tox screen is negative, May 2019. Urine culture demonstrates Ryann, likely colonized. IMPRESSION AND PLAN: Ms. Stanford is a 74-year-old female, admitted for mental status changes, likely transient ischemic attack with baseline dementia. 1. History of diabetes, poorly controlled. Found to have normal-pressure hydrocephalus on recent CT. 2. History of seizure disorder. The patient's disposition is pending. As there is significant PVR of 861 mL, I recommend bladder rest with indwelling Forte catheter. When disposition is final, in the next few days, I would consider repeat voiding trial. If the patient is able to void, she would be discharged without Forte catheter; if persistent urinary retention of concern, we will need to address regarding [facility] bladder rehab versus indwelling urethral Forte catheter. We would prefer rehab facility as she may need ongoing bladder rehab and detention facility given her comorbidities. Urine culture with Ryann due to poorly controlled diabetes does not warrant treatment unless symptomatic, i.e., fever. We will obtain renal ultrasound. Job ID: [id number] [facility]
[2019-06-11] MEDS: Atorvastatin Calcium 40 MG TAB PO SCH (21:40)
[2019-06-11] MEDS: Docusate 100 MG CAP PO SCH (21:40)
[2019-06-11] MEDS: Tamsulosin HCl 0.4 MG CAP PO SCH (21:40)
[2019-06-11] MEDS: Donepezil HCl 5 MG TAB PO SCH (21:40)
[2019-06-12 05:33] LABS: Anion Gap 12 mmol/L (10-20); BUN (Urea Nitrogen) 15 mg/dL (9.8-20.1); Calc. Creatinine Clearance 55 mL/min (70-130); Calcium 9.7 mg/dL (7.8-10.44); Carbon Dioxide 29 mmol/L (23-31); Chloride 101 mmol/L (98-107); Estimated GFR-MDRD 60; Glucose 76 mg/dL (83-110); Potassium 3.3 mmol/L (3.5-5.1); Sodium 139 mmol/L (136-145)
[2019-06-12] MEDS: Levothyroxine Sodium 50 MCG TAB PO SCH (05:34)
[2019-06-12] MEDS: Enoxaparin Sodium 40 MG/0.4 ML SYRINGE SC SCH (08:56)
[2019-06-12] MEDS: Insulin Glargine 15 UNITS in Pre-Filled Syringe SC SCH ×2 (09:03→20:14)
[2019-06-12] MEDS: Polyethylene Glycol 3350 17 GM Packet PO SCH (09:03)
[2019-06-12] MEDS: Carvedilol 6.25 MG TAB PO SCH ×2 (09:06→20:14)
[2019-06-12] MEDS: Losartan 25 MG TAB PO SCH (09:07)
[2019-06-12] MEDS: NIFEdipine XL 90 MG TAB PO SCH (09:07)
[2019-06-12] MEDS: Aspirin 325 mg Enteric Coated Tablet PO SCH (09:08)
[2019-06-12] MEDS: Hydrochlorothiazide 25 MG TAB PO SCH (09:08)
[2019-06-12] MEDS: Docusate 100 MG CAP PO SCH ×2 (09:09→20:14)
[2019-06-12] MEDS: levETIRAcetam 500 mg/5 ml Oral Solution PO SCH ×2 (09:09→20:30)
--- NOTE | 2019-06-12 09:41 | PDOC.HOSPP ---
- Subjective Encounter Date: 06/12/19 Encounter Time: 07:45 Subjective: No complaint expressed.. - Objective Vital Signs & Weight: Vital Signs (12 hours) Temp Pulse Resp BP BP Pulse Ox 06/12/19 09:07 62 154/84 H 06/12/19 09:06 154/84 H 06/12/19 07:25 97.7 F 62 20 154/84 H 99 06/12/19 04:00 98.3 F 60 16 139/72 96 06/11/19 23:47 98.4 F 64 16 126/65 97 06/11/19 21:40 185/89 H Weight Admit Weight 164 lb 0.383 oz Weight 164 lb 0.383 oz I&O: 06/11/19 06/12/19 06/13/19 06:59 06:59 06:59 Intake Total 840 1690 Output Total 800 2325 Balance 40 -635 Result Diagrams: 05/29/19 04:06 06/12/19 04:42 Additional Labs: Accuchecks 06/12/19 06/12/19 06/11/19 09:05 06:09 20:05 POC Glucose 82 87 172 H 06/11/19 06/11/19 16:51 10:43 POC Glucose 227 H 201 H Hospitalist ROS - Medication Medications: Active Medications Generic Name Dose Route Start Last Admin Trade Name Freq PRN Reason Stop Dose Admin Acetaminophen 650 mg 05/28/19 01:14 06/09/19 13:29 Tylenol PO 650 mg Q4H PRN Administration Headache/Fever/Mild Pain (1-3) Aspirin 325 mg 05/28/19 09:00 06/12/19 09:08 Ecotrin PO 325 mg DAILY GENESIS Administration Atorvastatin Calcium 40 mg 05/28/19 21:00 06/11/19 21:40 Lipitor PO 40 mg HS GENESIS Administration Carvedilol 6.25 mg 05/28/19 09:00 06/12/19 09:06 Coreg PO 6.25 mg BID GENESIS Administration Cholecalciferol 1,000 units 05/28/19 09:00 06/12/19 09:07 Vitamin D3 PO 1,000 units DAILY GENESIS Administration Clonidine 0.1 mg 05/28/19 04:29 06/06/19 06:35 Catapres PO 0.1 mg Q4H PRN Administration BP > 160/100 Docusate Sodium 100 mg 06/11/19 21:00 06/12/19 09:09 Colace PO 100 mg BID GENESIS Administration Donepezil HCl 5 mg 06/08/19 21:00 06/11/19 21:40 Aricept PO 5 mg HS GENESIS Administration Enoxaparin Sodium 40 mg 05/28/19 09:00 06/12/19 08:56 Lovenox SC 40 mg 0900 GENESIS Administration Hydrochlorothiazide 25 mg 05/28/19 09:00 06/12/19 09:08 Hydrochlorothiazide PO 25 mg DAILY GENESIS Administration Insulin Glargine 15 units/ 0.15 mls @ 0 mls/hr 06/06/19 21:00 06/12/19 09:03 Miscellaneous Medication SC 0.15 mls BID GENESIS Administration Insulin Human Lispro 0 units 05/28/19 10:17 06/11/19 21:41 Humalog SC 2 unit .MILD SLIDING SCALE PRN Administration Mild Correctional Scale Levetiracetam 500 mg 05/29/19 21:00 06/12/19 09:09 Keppra Oral Solution PO 500 mg BID GENESIS Administration Levothyroxine Sodium 50 mcg 05/28/19 06:00 06/12/19 05:34 Synthroid PO 50 mcg 0600 GENESIS Administration Losartan Potassium 100 mg 06/08/19 09:00 06/12/19 09:07 Cozaar PO 100 mg DAILY [facility] Administration Nifedipine 90 mg 06/08/19 09:00 06/12/19 09:07 Procardia Xl PO 90 mg DAILY [facility] Administration Ondansetron HCl 4 mg 05/28/19 01:14 05/29/19 15:01 Zofran IVP 4 mg Q6H PRN Administration Nausea/Vomiting Pantoprazole Sodium 40 mg 05/28/19 09:00 06/12/19 09:07 Protonix PO 40 mg DAILY GENESIS Administration Polyethylene Glycol 17 gm 06/12/19 09:00 06/12/19 09:03 Miralax PO 17 gm DAILY GENESIS Administration Sodium Chloride 10 ml 05/28/19 09:00 06/12/19 08:59 Flush - Normal Saline IVF Not Given Q12HR [facility] Tamsulosin HCl 0.4 mg 05/29/19 21:00 06/11/19 21:40 Flomax PO 0.4 mg HS [facility]ESIS Administration - Exam General Appearance: NAD, awake alert Neck: no JVD Heart: RRR Respiratory: CTAB Gastrointestinal: soft Extremities: no edema Neurological: no weakness Hosp A/P (1) Acute encephalopathy Code(s): G93.40 - ENCEPHALOPATHY, UNSPECIFIED Status: Acute (2) Candiduria Code(s): B37.49 - OTHER UROGENITAL CANDIDIASIS Status: Acute (3) Uncontrolled diabetes mellitus Code(s): E11.65 - TYPE 2 DIABETES MELLITUS WITH HYPERGLYCEMIA Status: Acute (4) Urinary retention Code(s): R33.9 - RETENTION OF URINE, UNSPECIFIED Status: Acute (5) Normal pressure hydrocephalus Code(s): G91.2 - (IDIOPATHIC) NORMAL PRESSURE HYDROCEPHALUS Status: Chronic (6) Seizure disorder Code(s): G40.909 - EPILEPSY, UNSP, NOT INTRACTABLE, WITHOUT STATUS EPILEPTICUS Status: Chronic (7) Urinary retention Code(s): R33.9 - RETENTION OF URINE, UNSPECIFIED Status: Acute Plan: Has schaefer in place.. F/U with . - Plan Awaiting placement... Continue current therapy.. F/u with regarding need to keep schaefer Vs bladder rehab.
[2019-06-12] MEDS: HumaLOG 300 UNITS/3 ML VIAL SC PRN ×2 (11:37→16:20)
--- NOTE | 2019-06-12 12:06 | PRG ---
DATE OF SERVICE: 06/12/2019 SUBJECTIVE: The patient without complaints, resting comfortably, responds to her name. OBJECTIVE: VITAL SIGNS: Stable, 1690, 2325 out of clear yellow urine. Creatinine today is 1.0. Admitting creatinine 1.5. Blood culture negative. Urine culture with Ryann. Urine does not need to be treated at this time as she is asymptomatic. Renal ultrasound demonstrates no evidence of hydronephrosis. Bladder decompressed with Forte catheter. IMPRESSION AND PLAN: Ms. Stanford is a 74-year-old female admitted for mental status changes, baseline creatinine is 0.8 to 1.5, and her A1c July is 11, currently 9.6. Urology consultation obtained due to urinary retention and postvoid residual of 861. Renal function improved with indwelling Forte catheter. Due to significant postvoid residual, recommend bladder rest with indwelling Forte catheter. Renal ultrasound results as above, pending her disposition, I would consider repeat voiding trial prior to discharge to rehabilitation versus residential facility. If persistent retention, [facility] for bladder rehab would be considered. Strict bowel regimen to avoid constipation advised Job ID: [id number] [facility]
[2019-06-12] MEDS: Donepezil HCl 5 MG TAB PO SCH (20:14)
[2019-06-12] MEDS: Atorvastatin Calcium 40 MG TAB PO SCH (20:14)
[2019-06-12] MEDS: Tamsulosin HCl 0.4 MG CAP PO SCH (20:14)
[2019-06-13] MEDS: Levothyroxine Sodium 50 MCG TAB PO SCH (05:44)
[2019-06-13] MEDS: HumaLOG 300 UNITS/3 ML VIAL SC PRN (05:59)
--- NOTE | 2019-06-13 08:13 | PRG ---
DATE OF SERVICE: 06/13/2019 SUBJECTIVE: The patient is resting comfortably, arousable. OBJECTIVE: VITAL SIGNS: Stable. Afebrile. Urine output 1000 over the last 24 hours, clear. ABDOMEN: Soft, nontender, and nondistended. She has not had a bowel movement for 4 days. Recommend bowel regimen, Dulcolax suppository, Fleet Enema if needed. PERTINENT LABORATORY DATA: Creatinine 1.0, June 12, admitted for creatinine of 1.52. Renal ultrasound negative. Blood culture negative. Urine culture with Ryann, which does not need treatment. IMPRESSION AND PLAN: 1. A 74-year-old female, admitted for mental status changes. 2. History of diabetes, poorly controlled. Prior A1c 11, currently 9.6. 3. Urinary retention with PVR of 861 mL. Currently on indwelling Forte catheter for bladder rest. Please address constipation as persistent constipation can exacerbate urinary retention. Upon disposition, we will consider repeat voiding trial. Job ID: [id number]
[2019-06-13] MEDS: Insulin Glargine 15 UNITS in Pre-Filled Syringe SC SCH ×2 (08:54→20:07)
[2019-06-13] MEDS: Aspirin 325 mg Enteric Coated Tablet PO SCH (08:55)
[2019-06-13] MEDS: Carvedilol 6.25 MG TAB PO SCH ×2 (08:55→20:07)
[2019-06-13] MEDS: Losartan 25 MG TAB PO SCH (08:55)
[2019-06-13] MEDS: Hydrochlorothiazide 25 MG TAB PO SCH (08:55)
[2019-06-13] MEDS: Pantoprazole 40 MG GRANULES PACKET PO SCH (08:56)
[2019-06-13] MEDS: Docusate 100 MG CAP PO SCH ×2 (08:56→20:07)
[2019-06-13] MEDS: Polyethylene Glycol 3350 17 GM Packet PO SCH (08:56)
[2019-06-13] MEDS: Enoxaparin Sodium 40 MG/0.4 ML SYRINGE SC SCH (08:56)
[2019-06-13] MEDS: levETIRAcetam 500 mg/5 ml Oral Solution PO SCH ×2 (08:56→20:08)
[2019-06-13] MEDS: NIFEdipine XL 90 MG TAB PO SCH (08:56)
--- NOTE | 2019-06-13 12:33 | PDOC.HOSPP ---
- Subjective Encounter Date: 06/13/19 Encounter Time: 12:31 Subjective: "I'm fine" - Objective Vital Signs & Weight: Vital Signs (12 hours) Temp Pulse Resp BP Pulse Ox 06/13/19 11:45 98.2 F 71 14 122/71 92 L 06/13/19 07:42 98 F 71 20 164/78 H 99 06/13/19 04:04 97.7 F 62 16 169/88 H 95 Weight Admit Weight 164 lb 0.383 oz Weight 164 lb 0.383 oz I&O: 06/12/19 06/13/19 06/14/19 06:59 06:59 06:59 Intake Total 1690 810 Output Total 2325 1000 Balance -662 -190 Result Diagrams: 05/29/19 04:06 06/12/19 04:42 Additional Labs: Accuchecks 06/13/19 06/13/19 06/12/19 11:20 05:59 20:48 POC Glucose 130 H 199 H 283 H 06/12/19 15:21 POC Glucose 290 H Hospitalist ROS - Medication Medications: Active Medications Generic Name Dose Route Start Last Admin Trade Name Freq PRN Reason Stop Dose Admin Acetaminophen 650 mg 05/28/19 01:14 06/09/19 13:29 Tylenol PO 650 mg Q4H PRN Administration Headache/Fever/Mild Pain (1-3) Aspirin 325 mg 05/28/19 09:00 06/13/19 08:55 Ecotrin PO 325 mg DAILY GENESIS Administration Atorvastatin Calcium 40 mg 05/28/19 21:00 06/12/19 20:14 Lipitor PO 40 mg HS GENESIS Administration Carvedilol 6.25 mg 05/28/19 09:00 06/13/19 08:55 Coreg PO 6.25 mg BID GENESIS Administration Cholecalciferol 1,000 units 05/28/19 09:00 06/13/19 08:55 Vitamin D3 PO 1,000 units DAILY GENESIS Administration Clonidine 0.1 mg 05/28/19 04:29 06/06/19 06:35 Catapres PO 0.1 mg Q4H PRN Administration BP > 160/100 Docusate Sodium 100 mg 06/11/19 21:00 06/13/19 08:56 Colace PO 100 mg BID GENESIS Administration Donepezil HCl 5 mg 06/08/19 21:00 06/12/19 20:14 Aricept PO 5 mg HS GENESIS Administration Enoxaparin Sodium 40 mg 05/28/19 09:00 06/13/19 08:56 Lovenox SC 40 mg 0900 GENESIS Administration Hydrochlorothiazide 25 mg 05/28/19 09:00 06/13/19 08:55 Hydrochlorothiazide PO 25 mg DAILY GENESIS Administration Insulin Glargine 15 units/ 0.15 mls @ 0 mls/hr 06/06/19 21:00 06/13/19 08:54 Miscellaneous Medication SC 0.15 mls BID GENESIS Administration Insulin Human Lispro 0 units 05/28/19 10:17 06/13/19 05:59 Humalog SC 2 unit .MILD SLIDING SCALE PRN Administration Mild Correctional Scale Levetiracetam 500 mg 05/29/19 21:00 06/13/19 08:56 Keppra Oral Solution PO 500 mg BID GENESIS Administration Levothyroxine Sodium 50 mcg 05/28/19 06:00 06/13/19 05:44 Synthroid PO 50 mcg 0600 GENESIS Administration Losartan Potassium 100 mg 06/08/19 09:00 06/13/19 08:55 Cozaar PO 100 mg DAILY GENESIS Administration Nifedipine 90 mg 06/08/19 09:00 06/13/19 08:56 Procardia Xl PO 90 mg DAILY GENESIS Administration Ondansetron HCl 4 mg 05/28/19 01:14 05/29/19 15:01 Zofran IVP 4 mg Q6H PRN Administration Nausea/Vomiting Pantoprazole Sodium 40 mg 06/13/19 09:00 06/13/19 08:56 Protonix PO 40 mg DAILY GENESIS Administration Polyethylene Glycol 17 gm 06/12/19 09:00 06/13/19 08:56 Miralax PO 17 gm DAILY GENESIS Administration Sodium Chloride 10 ml 05/28/19 09:00 06/13/19 08:57 Flush - Normal Saline IVF 10 ml Q12HR GENESIS Administration Tamsulosin HCl 0.4 mg 05/29/19 21:00 06/12/19 20:14 Flomax PO 0.4 mg HS GENESIS Administration - Exam General Appearance: awake alert Neck: no JVD Heart: RRR, no murmur Respiratory: CTAB Gastrointestinal: soft, non-tender, normal bowel sounds Extremities: 1+ LE edema Hosp A/P (1) Acute encephalopathy Code(s): G93.40 - ENCEPHALOPATHY, UNSPECIFIED Status: Acute (2) Urinary retention Code(s): R33.9 - RETENTION OF URINE, UNSPECIFIED Status: Acute (3) Normal pressure hydrocephalus Code(s): G91.2 - (IDIOPATHIC) NORMAL PRESSURE HYDROCEPHALUS Status: Chronic (4) Seizure disorder Code(s): G40.909 - EPILEPSY, UNSP, NOT INTRACTABLE, WITHOUT STATUS EPILEPTICUS Status: Chronic (5) Diabetes type 2, controlled Code(s): E11.9 - TYPE 2 DIABETES MELLITUS WITHOUT COMPLICATIONS Status: Chronic Qualifiers: Diabetes mellitus fci insulin use: with fci use Diabetes mellitus complication status: with kidney complications Chronic kidney disease stage: stage 3 (moderate) - Plan changing to nectar thichk liquids per speech tx cont current tx, placement in progress
[2019-06-13] MEDS: Atorvastatin Calcium 40 MG TAB PO SCH (20:06)
[2019-06-13] MEDS: Tamsulosin HCl 0.4 MG CAP PO SCH (20:07)
[2019-06-13] MEDS: Donepezil HCl 5 MG TAB PO SCH (20:07)
[2019-06-14] MEDS: Levothyroxine Sodium 50 MCG TAB PO SCH (05:17)
--- NOTE | 2019-06-14 09:23 | PRG ---
DATE OF SERVICE: 06/14/2019 SUBJECTIVE: The patient is resting, arousable; however, somewhat groggy. Appears aphasic. OBJECTIVE: VITAL SIGNS: Stable. Blood pressure 186/81. I's and O's 970 in and 1450 out. She is negative 480 mL. Had one bowel movement yesterday, soft. ABDOMEN: Soft. No rigidity. No rebound. : Forte catheter, clear. LABORATORY DATA: There are no recent labs. Last creatinine is 1.0. Admitting creatinine of 1.5. IMAGING STUDIES: Renal ultrasound negative for hydronephrosis. IMPRESSION AND PLAN: A 74-year-old female admitted for, 1. Mental status changes. 2. Transient ischemic attack. 3. History of diabetes, poorly controlled. Hemoglobin A1c of 11 previously, currently 9.6. 4. History of urinary retention. Seen over the weekend with PVR of 861 mL, advised regarding continuing indwelling Forte catheter for now. As previous, upon disposition, I will repeat a voiding trial to assess for improvement of PVR. Bowel movement yesterday, continue to monitor for constipation as it can exacerbate urinary retention. Disposition is pending. Please inform when the patient's disposition is near final as I anticipate voiding trial prior to disposition. If continues to void incomplete, recommend bladder rehabilitation with [facility] double time voiding. Job ID: [id number] [facility]
[2019-06-14] MEDS: Polyethylene Glycol 3350 17 GM Packet PO SCH (09:31)
[2019-06-14] MEDS: Aspirin 325 mg Enteric Coated Tablet PO SCH (09:31)
[2019-06-14] MEDS: Docusate 100 MG CAP PO SCH ×2 (09:31→20:47)
[2019-06-14] MEDS: Carvedilol 6.25 MG TAB PO SCH ×2 (09:32→20:42)
[2019-06-14] MEDS: Losartan 25 MG TAB PO SCH (09:32)
[2019-06-14] MEDS: Pantoprazole 40 MG GRANULES PACKET PO SCH (09:33)
[2019-06-14] MEDS: Hydrochlorothiazide 25 MG TAB PO SCH (09:33)
[2019-06-14] MEDS: Enoxaparin Sodium 40 MG/0.4 ML SYRINGE SC SCH (09:33)
[2019-06-14] MEDS: NIFEdipine XL 90 MG TAB PO SCH (09:33)
[2019-06-14] MEDS: Insulin Glargine 15 UNITS in Pre-Filled Syringe SC SCH ×2 (09:34→20:47)
[2019-06-14] MEDS: levETIRAcetam 500 mg/5 ml Oral Solution PO SCH ×2 (09:35→20:47)
[2019-06-14] MEDS: HumaLOG 300 UNITS/3 ML VIAL SC PRN (12:24)
--- NOTE | 2019-06-14 14:43 | DIS ---
DATE OF ADMISSION: 05/27/2019 DATE OF DISCHARGE: 06/14/2019 PRIMARY CARE PROVIDER: Laila Torres NP DISPOSITION: Discharged to shelter facility. FINAL DIAGNOSES: Encephalopathy, normal-pressure hydrocephalus, diabetes mellitus type 2 with chronic kidney disease stage 3, hypertension, urinary retention, hypothyroidism, and recurrent falls. DISCHARGE MEDICATIONS: 1. Coreg 6.25 mg p.o. b.i.d. 2. Aspirin 325 mg a day. 3. Levothyroxine 50 mcg a day. 4. Hydrochlorothiazide 25 mg a day. 5. Atorvastatin 40 mg a day. 6. Protonix 40 mg a day. 7. Keppra oral solution 500 mg twice a day. 8. Flomax 0.4 mg a day. 9. Zofran 4 mg oral dissolving tablets q.6 hours p.r.n. 10. Nifedipine 90 mg a day. 11. Cozaar 100 mg a day. 12. Lantus 15 units subcu twice a day. 13. Aricept 5 mg a day. 14. Colace 100 mg twice a day. ALLERGIES: IODINE AND PENICILLINS. PENDING AT TIME OF DISCHARGE: Nothing. CODE STATUS: Full. DIET: Diabetic. CONSULTATIONS: Michael Angelo MD, Neurology and Tanja Carrasco DO, Genitourinary. PROCEDURES: None. HOSPITAL COURSE: The patient was admitted to the [facility] through [facility] with altered mental status. Diagnosed with leukocytosis and metabolic encephalopathy. Brain CT suspected normal-pressure hydrocephalus. Brain MRI, same recommendation for diagnosis. Laboratory on admission; white count 16.7, hemoglobin 14.8, and platelet count 200,000. Chemistries; sodium 139, potassium 4.1, CO2 of 27, BUN 20, creatinine 1.52, blood sugar 335, and lactic acid 1.9. Liver function tests normal except for a mildly elevated alkaline phosphatase of 119. Dr. Michael Angelo saw her on 05/28/2019 in consultation, recommended Keppra for possible sub-clinic seizure activity. Electrophysiology, normal awake EEG. Echocardiogram, LVEF 50% to 55% with a suggestion of diastolic dysfunction. Urine culture grew Ryann. The patient was seen by Dr. Carrasco. She recommended bladder rest with Forte catheter. Stated the urine culture was Ryann in diabetes did not warrant treatment unless there was fever. Renal ultrasound recommended by Dr. Carrasco reveal no hydronephrosis. The patient was treated with antifungal per hospitalists without significant change. Initially, a referral for shelter was rejected by her insurance provider, it has now been approved. She has had no significant change in her renal function. Blood sugar has been adequately controlled. Her urine drug screen showed no evidence of any drug-related cause for her confusion. Her white count did come down. She is currently being transferred to [facility] in [place], [place], to be close to her family. At this time, Case Management has not been able to give me the name of the accepting physician. This will be added as an addendum when available. Currently, the patient's cardiovascular status is stable. Vital signs are stable. Her need for the antiseizure medicines is probably not supported by her failure to change significantly; however, it is being continued. She has an indwelling Forte due to urinary retention, which will need some bladder training over the next few weeks. Job ID: [id number]
[2019-06-14] MEDS: Atorvastatin Calcium 40 MG TAB PO SCH (20:47)
[2019-06-14] MEDS: Tamsulosin HCl 0.4 MG CAP PO SCH (20:47)
[2019-06-14] MEDS: Donepezil HCl 5 MG TAB PO SCH (20:47)
[2019-06-15] MEDS: Levothyroxine Sodium 50 MCG TAB PO SCH (05:32)
--- NOTE | 2019-06-15 09:18 | PRG ---
DATE OF SERVICE: 06/15/2019 SUBJECTIVE: The patient is resting, arousable. OBJECTIVE: VITAL SIGNS: Stable. Afebrile. I's and O's, 1000 of urine output. ABDOMEN: Soft, nontender, nondistended. IMPRESSION AND PLAN: 1. Ms. Stanford is a 74-year-old female admitted for mental status changes. 2. Transient ischemic attack. 3. Poorly controlled diabetes. 4. Renal insufficiency, resolved. Renal ultrasound negative. 5. Urinary retention of 861 mL. Due to significant postvoid residual, recommend bladder rest with indwelling Forte catheter. This patient is being transition to out of area senior care to be close to family. As such, the patient can be discharged to a nursing facility with indwelling Forte catheter. Recommend the patient undergo bladder rehab at nursing facility rehabilitation for clean intermittent catheterization as an outpatient. Disposition pending. Job ID: [id number]
[2019-06-15] MEDS: Carvedilol 6.25 MG TAB PO SCH (10:06)
[2019-06-15] MEDS: NIFEdipine XL 90 MG TAB PO SCH (10:06)
[2019-06-15] MEDS: Polyethylene Glycol 3350 17 GM Packet PO SCH (10:06)
[2019-06-15] MEDS: Docusate 100 MG CAP PO SCH (10:07)
[2019-06-15] MEDS: Pantoprazole 40 MG GRANULES PACKET PO SCH (10:07)
[2019-06-15] MEDS: Hydrochlorothiazide 25 MG TAB PO SCH (10:07)
[2019-06-15] MEDS: Aspirin 325 mg Enteric Coated Tablet PO SCH (10:07)
[2019-06-15] MEDS: Losartan 25 MG TAB PO SCH (10:07)
[2019-06-15] MEDS: Enoxaparin Sodium 40 MG/0.4 ML SYRINGE SC SCH (10:08)
[2019-06-15] MEDS: Insulin Glargine 15 UNITS in Pre-Filled Syringe SC SCH (10:34)
[2019-06-15] MEDS: levETIRAcetam 500 mg/5 ml Oral Solution PO SCH (10:35)
[2019-06-15 13:43] VITALS: BP 111/61; TEMP 98.4
--- NOTE | 2019-06-16 10:35 | DIS ---
DATE OF ADMISSION: 05/27/2019 DATE OF DISCHARGE: 06/15/2019 ADDENDUM: A discharge summary was dictated on 06/14/2019. The patient ended up staying overnight, everything in the discharge summary continues to apply, no changes. Job ID: [id number]
== END 2019-06-15 16:20 | DRG 100 ==
LOC: ERS 19:18 → T4-B 23:00 → OBSVTOIN 23:00 → 2SE 05-28 00:54 → SURG A 06-12 14:34
PROVIDERS: ADMIT Hospitalist; ATTEND Hospitalist
DX: G40.909 Epilepsy, unspecified, not intractable, without status epilepticus (principal); G93.41 Metabolic encephalopathy; G91.2 (Idiopathic) normal pressure hydrocephalus; N39.0 Urinary tract infection, site not specified; G45.9 Transient cerebral ischemic attack, unspecified; D72.829 Elevated white blood cell count, unspecified; I12.9 Hypertensive chronic kidney disease with stage 1 through stage 4 chronic kidney disease, or unspecified chronic kidney disease; F03.90 Unspecified dementia, unspecified severity, without behavioral disturbance, psychotic disturbance, mood disturbance, and anxiety; I70.0 Atherosclerosis of aorta; N18.3 Chronic kidney disease, stage 3 (moderate); E11.22 Type 2 diabetes mellitus with diabetic chronic kidney disease; K21.9 Gastro-esophageal reflux disease without esophagitis; E78.5 Hyperlipidemia, unspecified; E03.9 Hypothyroidism, unspecified; E11.65 Type 2 diabetes mellitus with hyperglycemia; E87.6 Hypokalemia; R29.6 Repeated falls; R53.81 Other malaise; K59.00 Constipation, unspecified; Z86.73 Personal history of transient ischemic attack (TIA), and cerebral infarction without residual deficits; Z90.49 Acquired absence of other specified parts of digestive tract; Z88.0 Allergy status to penicillin; Z91.041 Radiographic dye allergy status; Z87.891 Personal history of nicotine dependence; Z79.82 Long term (current) use of aspirin
CPT/HCPCS: 36415; 36416; 51701; 70450; 70553; 71045; 76770; 80048; 80053; 80069; 80306; 81003; 81015; 82043; 82330; 82550; 82570; 82803; 83036; 83605; 83690; 83735; 83880; 83970; 84146; 84156; 84443; 84484; 85025; 87040; 87086; 90471; 90670; 93005; 93306; 95816; 95819; 96374; A4353; A9577; G0009; J0360; J1650; J1815; J1953; J2248; J2405; J3490